=== PATIENT | male | born 1965 | race Caucasian/White ===

== ENCOUNTER 2016-04-27 09:22 | Inpatient (IN) | payer MEDICAID ==
--- NOTE | 2016-04-27 09:59 | CPEKG ---
Heart Rate: 103 RR Interval: 583 P-R Interval: 160 QRSD Interval: 92 QT Interval: 336 QTC Interval: 440 P What Cheer: 45 QRS What Cheer: 104 T Wave What Cheer: 27 EKG Severity - OTHERWISE NORMAL ECG - EKG Impression: SINUS TACHYCARDIA EKG Impression: RIGHT AXIS DEVIATION Electronically Signed By: Esthela Meza 27-Apr-2016 14:39:23
[2016-04-27 10:00] LABS: % IMMATURE GRANULYOCYTES 0.8 % (0.0-1.1); ABSOLUTE IMMATURE GRANULOCYTES 0.08 10^3/uL (0.00-0.10); ADD DIFF? NO; ADD MORPH? NO; ADD SCAN? NO; ATYPICAL LYMPHOCYTE FLAG 0 (0-99); FRAGMENT RBC FLAG 0 (0-99); HEMATOCRIT 39.3 % (40.0-51.0); HEMOGLOBIN 13.4 g/dL (13.7-17.5); LEFT SHIFT FLG 10 (0-99); LIPEMIA HEMOLYSIS FLAG 90 (0-99); MEAN CELL HEMOGLOBIN 30.4 pg (27.9-34.1); MEAN CELL HEMOGLOBIN CONCENTR. 34.1 g/dL (32.4-36.7); MEAN CELL VOLUME 89.1 fL (81.5-99.8); MEAN PLATELET VOLUME 9.1 fL (8.7-11.7); PLATELET CLUMPS FLAG 0 (0-99); PLATELET COUNT 190 10^3/uL (150-400); RED BLOOD CELL COUNT 4.41 10^6/uL (4.40-6.38); RED CELL DISTRIBUTION WIDTH 14.2 % (11.5-15.2)
[2016-04-27] MEDS ORDERED: NS 1,000 ML IV ONE (10:07)
[2016-04-27] MEDS ORDERED: IPRATROPIUM/ALBUTEROL 3 ML DEYVIAL IH ONE (10:17)
[2016-04-27 10:21] LABS: ANION GAP 13 mEq/L (8-16); CALCIUM 8.8 mg/dL (8.5-10.4); CARBON DIOXIDE 20 mEq/l (22-31); CHLORIDE 102 mEq/L (97-110); CREATININE 2.1 mg/dL (0.7-1.3); GLOMERULAR FILTRATION RATE 34; GLUCOSE 134 mg/dL (70-100); POTASSIUM 3.8 mEq/L (3.5-5.2); SODIUM 135 mEq/L (134-144)
--- NOTE | 2016-04-27 10:21 | EDPHY ---
H & P Time Seen by Provider: 04/27/16 09:53 HPI/ROS: CHIEF COMPLAINT: Cough, fever HISTORY OF PRESENT ILLNESS: 50-year-old male presents with a 3 day history of cough and fever. Onset of body aches and a productive cough 3 days ago. Associated with left-sided chest pain, subjective fever and chills. Gradually increasing shortness of breath since then, now short of breath at rest. No vomiting or diarrhea, but has lack of appetite and decreased oral intake. He received a flu vaccination this year. No prior history of pneumonia. REVIEW OF SYSTEMS: Eyes: No visual changes ENT: No sore throat Gastrointestinal: No nausea, no vomiting, no abdominal pain Genitourinary: No hematuria, no dysuria Musculoskeletal: No leg pain or swelling Skin: No rash Neurological: mild headache Psychiatric: No depression Past Medical/Surgical History: Peripheral neuropathy Social History: Homeless PCP: Dr. Murphy Smoking Status: Heavy smoker Physical Exam: General Appearance: Alert, tachypneic, RR 22, nontoxic Eyes: Pupils equal and round, no conjunctival injection ENT, Mouth: Mucous membranes somewhat dry Neck: Normal inspection Respiratory: diffuse inspiratory and expiratory rhonchi Cardiovascular: regular tachycardia Gastrointestinal: Abdomen is soft and nontender Neurological: A&O, nonfocal exam Skin: Warm and dry, no rash Extremities: normal inspection Psychiatric: Mood and affect normal Constitutional: Initial Vital Signs Temperature (C) 37.7 C 04/27/16 09:25 Heart Rate 122 H 04/27/16 09:25 Respiratory Rate 20 04/27/16 09:25 Blood Pressure 87/57 L 04/27/16 09:25 O2 Sat (%) 88 L 04/27/16 09:25 O2 Delivery Mode Nasal Cannula O2 (L/minute) 4 Allergies/Adverse Reactions: coconut Allergy (Severe, Uncoded 12/26/13 09:14) Home Medications: Medication Instructions Recorded Allopurinol 100 MG (RX) 07/11/13 ARIPiprazole [Abilify 5 mg (*)] 5 mg PO DAILY 04/13/16 Gabapentin 04/13/16 Ibuprofen 04/13/16 Lamictal 04/13/16 Prazosin HCl [Minipress 1mg (*)] 3 mg PO HS 04/13/16 buPROPion XL [Wellbutrin Xl] 300 mg PO DAILY 04/13/16 traZODone [traZODone 150MG (*)] 300 mg PO HS 04/13/16 FLUoxetine [Prozac 20 MG (*)] 40 mg PO DAILY 04/27/16 Medical Decision Making - Diagnostics Imaging: X-ray independently reviewed by me reveals a left upper lobe infiltrate. ED Course/Re-evaluation: This patient presents with fever, cough and hypotension. He meets SIRS criteria , with tachycardia and respiratory rate 22. Initial lactate is normal. He meets the severe sepsis protocol with a creatinine of 2.1. Repeat lactate 0.6. IV normal saline 30 mL/kilogram. Blood pressure 100/57 and heart rate 88 after IV fluids and fever reduction. DuoNeb given for diffuse rhonchi. Chest x -ray reveals a left upper lobe pneumonia. Levaquin 750 mg IV given. The hospitalist was consulted for admission. Differential Diagnosis: Differential diagnosis includes pyelonephritis, cholecystitis, influenza, cellulitis, pneumonia, abscess, meningitis. - Data Points Laboratory Results: Laboratory Results 04/27/16 09:45 04/27/16 09:45 04/27/16 04/27/16 04/27/16 10:00 09:45 09:45 WBC RBC Hgb Hct MCV MCH MCHC RDW Plt Count MPV Neut % (Auto) Lymph % (Auto) [place] % (Auto) Eos % (Auto) Baso % (Auto) Nucleat RBC Rel Count Absolute Neuts (auto) Absolute Lymphs (auto) Absolute Monos (auto) Absolute Eos (auto) Absolute Basos (auto) Absolute Nucleated RBC Immature Gran % Immature Gran # PT INR APTT VBG Lactic Acid 1.0 mmol/L mmol/L (0.7-2.1) Sodium 135 mEq/L mEq/L (134-144) Potassium 3.8 mEq/L mEq/L (3.5-5.2) Chloride 102 mEq/L mEq/L (97-110) Carbon Dioxide 20 mEq/l L mEq/l (22-31) Anion Gap 13 mEq/L mEq/L (8-16) BUN 33 mg/dL H mg/dL (7-23) Creatinine 2.1 mg/dL H mg/dL (0.7-1.3) Estimated GFR 34 Glucose 134 mg/dL H mg/dL (70-100) Calcium 8.8 mg/dL mg/dL (8.5-10.4) Total Bilirubin Influenza A & B (PCR) NEGATIVE FOR FLU (NEGATIVE) 04/27/16 04/27/16 04/27/16 09:45 09:25 09:25 WBC 10.29 10^3/uL H 10^3/uL (3.80-9.50) RBC 4.41 10^6/uL 10^6/uL (4.40-6.38) Hgb 13.4 g/dL L g/dL (13.7-17.5) Hct 39.3 % L % (40.0-51.0) MCV 89.1 fL fL (81.5-99.8) MCH 30.4 pg pg (27.9-34.1) MCHC 34.1 g/dL g/dL (32.4-36.7) RDW 14.2 % % (11.5-15.2) Plt Count 190 10^3/uL 10^3/uL (150-400) MPV 9.1 fL fL (8.7-11.7) Neut % (Auto) 82.7 % H % (39.3-74.2) Lymph % (Auto) 5.1 % L % (15.0-45.0) [place] % (Auto) 11.1 % % (4.5-13.0) Eos % (Auto) 0.1 % L % (0.6-7.6) Baso % (Auto) 0.2 % L % (0.3-1.7) Nucleat RBC Rel Count 0.0 % % (0.0-0.2) Absolute Neuts (auto) 8.52 10^3/uL H 10^3/uL (1.70-6.50) Absolute Lymphs (auto) 0.52 10^3/uL L 10^3/uL (1.00-3.00) Absolute Monos (auto) 1.14 10^3/uL H 10^3/uL (0.30-0.80) Absolute Eos (auto) 0.01 10^3/uL L 10^3/uL (0.03-0.40) Absolute Basos (auto) 0.02 10^3/uL 10^3/uL (0.02-0.10) Absolute Nucleated RBC 0.00 10^3/uL 10^3/uL (0-0.01) Immature Gran % 0.8 % % (0.0-1.1) Immature Gran # 0.08 10^3/uL 10^3/uL (0.00-0.10) PT 13.8 SEC SEC (12.0-15.0) INR 1.07 (0.83-1.16) APTT 32.9 SEC SEC (23.0-38.0) VBG Lactic Acid Sodium Potassium Chloride Carbon Dioxide Anion Gap BUN Creatinine Estimated GFR Glucose Calcium Total Bilirubin 0.7 mg/dL mg/dL (0.1-1.4) Influenza A & B (PCR) Medications Given: Discontinued Medications Acetaminophen (Tylenol) 650 mg PO EDNOW ONE Stop: 04/27/16 10:23 Last Admin: 04/27/16 10:45 Dose: 650 mg Albuterol/Ipratropium (Duoneb) 3 ml IH EDNOW ONE Stop: 04/27/16 10:18 Last Admin: 04/27/16 10:36 Dose: 3 ml Sodium Chloride (Ns) 1,000 mls @ 0 mls/hr IV ONCE ONE PRN Reason: Wide Open Stop: 04/27/16 10:08 Last Admin: 04/27/16 10:08 Dose: 1,000 mls Levofloxacin/Dextrose (Levaquin 750 Mg (Premix)) 150 mls @ 100 mls/hr IV EDNOW ONE PRN Reason: Protocol Stop: 04/27/16 12:05 Last Admin: 04/27/16 11:15 Dose: 150 mls Sodium Chloride (Ns *For Sepsis Order Set Only*) 3,266 ml 30 ml/kg (3266 ml) IV EDNOW ONE Stop: 04/27/16 10:37 Last Admin: 04/27/16 11:16 Dose: 3,266 ml Departure - Departure Disposition: [facility] Inpatient Acute Clinical Impression: Severe sepsis Pneumonia Qualifiers: Pneumonia type: due to unspecified organism Laterality: left Lung location: upper lobe of lung Qualified Code(s): J18.1 - Lobar pneumonia, unspecified organism Acute renal failure Qualifiers: Acute renal failure type: unspecified Qualified Code(s): N17.9 - Acute kidney failure, unspecified Condition: Serious
[2016-04-27] MEDS ORDERED: ACETAMINOPHEN 325 MG TAB PO ONE (10:22)
[2016-04-27] MEDS ORDERED: NS 1,000 ML BAG *FOR SEPSIS ORDER SET ONLY IV ONE (10:36)
[2016-04-27 10:49] LABS: INR 1.07 (0.83-1.16); PROTIME(PATIENT) 13.8 SEC (12.0-15.0)
[2016-04-27 10:53] LABS: BILIRUBIN,TOTAL 0.7 mg/dL (0.1-1.4)
[2016-04-27 10:54] LABS: APTT 32.9 SEC (23.0-38.0)
[2016-04-27] MEDS ORDERED: ONDANSETRON 4 MG/2 ML VIAL IVP PRN (13:18)
[2016-04-27] MEDS ORDERED: ALBUTEROL 60 PUFFS/8 GM MDI IH PRN (13:18)
[2016-04-27] MEDS: NS 1,000 ML IV SCH (13:56)
[2016-04-27] MEDS: IPRATROPIUM/ALBUTEROL 3 ML DEYVIAL IH SCH ×2 (15:32→21:18)
[2016-04-27] MEDS: ACETAMINOPHEN 325 MG TAB PO PRN ×2 (15:48→22:16)
--- NOTE | 2016-04-27 16:13 | PDGENHP ---
History and Physical History and Physical: HISTORY AND PHYSICAL CC: Cough and shortness of breath HISTORY: This patient who has long smoking history and COPD comes in with 1 week of worsening respiratory symptoms which started with cough and progressed to worsening cough worsening shortness of breath and fever symptoms. He has had decrease in appetite and not been eating or drinking well. He has not had any chest pain per se. There have been some chills and sweats. He has no pleuritic pain and no leg pain or swelling. He did not have a flu shot this year. He does not have myalgias or arthralgias or headache. He has been working on quitting smoking has cut back to around a pack a day but had previously been 2 packs a day until just recently ROS: A comprehensive 10 system review revealed no other significant findings PAST MEDICAL HISTORY: COPD Ongoing tobacco abuse 1 episode of pneumonia Seizure disorder with due to alcohol with subarachnoid hemorrhage in mandibular fracture due to seizures Past alcohol abuse Peripheral neuropathy thought due to alcoholism Anemia of chronic disease Hyperlipidemia Depression Gout Right ankle fracture Appendectomy FAMILY MEDICAL HISTORY: Heart disease and COPD SOCIAL HISTORY: Homeless Continues to smoke cigarettes heavily No street drugs or alcohol at this time MEDICATIONS: The patients list has been reconciled by our clinical pharmacist in the EMR. I have reviewed the list and ordered appropriate medicines. PHYSICAL EXAMINATION: Vital Signs: Initial blood pressure and pulse in the ER 87/57 and 122 with some hypoxemia andtemperature 37.7degrees Dope Mixer: Sinus rhythm on my review in the ER Examination: General: alert, oriented, good mentation Skin: warm, dry, good color, no rash HEENT: normal Neck: no mass or jvd Resps: Labored Lungs: Severely diminished with prolonged expiration and some wheeze Heart: regular, no murmur Abdomen: soft, nondistended, nontender, +BS, no mass Upper Extremities: normal Lower Extremities: no edema, warm No Bleeding or bruising Neurologic: normal speech/language, normal cloth shrinker, no focal weakness IV site: looks normal LABORATORY DATA: Creatinine elevated at 2.1 with an increase in BUN White blood cell count elevated with predominance of neutrophils RADIOLOGY STUDIES: Chest x-ray in the ER, my personal interpretation of the images: There is a dense infiltrate in the left upper lobe that has a somewhat rounded and smooth edged appearance. This is most still likely an infectious infiltrate and in fact does have some air bronchograms in, but hard to rule out mass. There is also elevation of the left hemidiaphragm and the level of the diaphragm is somewhat obscured by atelectasis and possibly infiltrate. ASSESSMENT: -ACUTE RESPIRATORY FAILURE, HYPOXEMIC -ACUTE SEVERE SEPSIS WITH RESULTANT RENAL FAILURE, BUT WITHOUT METABOLIC ACIDOSIS -LEFT LUNG PNEUMONIA IS SUSPECTED, COMMUNITY-ACQUIRED -COPD EXACERBATION -QUESTION OF POSSIBLE LUNG MASS VERSUS INFILTRATE IN THE LEFT LUNG WITH ELEVATION OF THE LEFT HEMIDIAPHRAGM -ONGOING TOBACCO ABUSE -HOMELESSNESS -RISK OF DVT IS AT LEAST MODERATE The patient did have initial resuscitation for sepsis in the ER with good resolution of hypotension and tachycardia. Need to follow closely to make sure that is remains resolved and follow his renal function and respiratory failure closely. PLANS: -admission to hospital inpatient as he will clearly require more than 2 days to get over his respiratory failure -bronchodilators, steroids, antibiotics have all been started in the ER will be continued -blood cultures done in the ER and are pending -follow-up to be sure that his sepsis does not recur her after initial resuscitation -repeat chest x-ray tomorrow and he will certainly need more imaging. He should probably have a CT scan before leaving the hospital -DVT prophylaxis I have reviewed the patient's case in detail with . I have reviewed the patient's past medical records as part of this assessment, including
[2016-04-27] MEDS: NICOTINE 21 MG/24 HR PATCH TD SCH (17:39)
[2016-04-27 23:38] LABS: ANION GAP 11 mEq/L (8-16); CALCIUM 8.1 mg/dL (8.5-10.4); CARBON DIOXIDE 19 mEq/l (22-31); CHLORIDE 103 mEq/L (97-110); CREATININE 1.3 mg/dL (0.7-1.3); GLOMERULAR FILTRATION RATE 58; GLUCOSE 124 mg/dL (70-100); POTASSIUM 4.2 mEq/L (3.5-5.2); SODIUM 133 mEq/L (134-144)
[2016-04-27] MEDS: PRAZOSIN HCL 1 MG CAP PO SCH (23:45)
[2016-04-27] MEDS: ZOLPIDEM TARTRATE 5 MG TAB PO PRN (23:46)
[2016-04-28] MEDS: NS 1,000 ML IV SCH ×2 (04:01→19:55)
[2016-04-28] MEDS: IPRATROPIUM/ALBUTEROL 3 ML DEYVIAL IH SCH ×4 (05:20→20:55)
[2016-04-28] MEDS: ACETAMINOPHEN 325 MG TAB PO PRN ×2 (05:45→19:52)
[2016-04-28 06:03] LABS: % IMMATURE GRANULYOCYTES 0.8 % (0.0-1.1); ABSOLUTE IMMATURE GRANULOCYTES 0.06 10^3/uL (0.00-0.10); ADD DIFF? NO; ADD MORPH? NO; ADD SCAN? NO; ATYPICAL LYMPHOCYTE FLAG 0 (0-99); FRAGMENT RBC FLAG 0 (0-99); HEMATOCRIT 34.6 % (40.0-51.0); HEMOGLOBIN 11.6 g/dL (13.7-17.5); LEFT SHIFT FLG 20 (0-99); LIPEMIA HEMOLYSIS FLAG 80 (0-99); MEAN CELL HEMOGLOBIN 30.3 pg (27.9-34.1); MEAN CELL HEMOGLOBIN CONCENTR. 33.5 g/dL (32.4-36.7); MEAN CELL VOLUME 90.3 fL (81.5-99.8); MEAN PLATELET VOLUME 9.4 fL (8.7-11.7); PLATELET CLUMPS FLAG 0 (0-99); PLATELET COUNT 192 10^3/uL (150-400); RED BLOOD CELL COUNT 3.83 10^6/uL (4.40-6.38); RED CELL DISTRIBUTION WIDTH 14.6 % (11.5-15.2)
[2016-04-28 06:20] LABS: ANION GAP 10 mEq/L (8-16); CALCIUM 8.2 mg/dL (8.5-10.4); CARBON DIOXIDE 21 mEq/l (22-31); CHLORIDE 105 mEq/L (97-110); CREATININE 1.2 mg/dL (0.7-1.3); GLOMERULAR FILTRATION RATE > 60; GLUCOSE 102 mg/dL (70-100); POTASSIUM 4.2 mEq/L (3.5-5.2); SODIUM 136 mEq/L (134-144)
--- NOTE | 2016-04-28 07:16 | HOSPPROG ---
Hospitalist Progress Note Assessment/Plan: Called bedside for acutely worsening oxygen saturations at 10pm patient admitted with suspected CAP and 3L O2 requirement by 10pm pt had developed tachypnea (> 30), tachycardia (HR 110-120's) and worsening O2 requirement of 3-> 10L 90% # Acute hypoxic Respiratory failure - reported sx were slightly improved from initial admission - pt denied pleuritic or any CP CXR -(personally reviewed and interpreted) clear ERIN infiltrate - sending STAT dimer and BMP - clinical suspicion for PE low - but being considered - continue aggressive pulmonary toilet and empiric Abx - no indication for BIPAP at this time - cont inhaled meds # Sepsis - presumed 2/2 to CAP - cx collected and NGTD - continue aggressive fluid resuscitation - cont empiric Abx # JOLLY - recheck BMP - if clinical course deteriorates- then may need to more seriously entertain PE - check renal status prior to any CTPE imaging - if remains high could empirically treat with lovenox I spent > 30 minutes providing critical care time with patient overnight - care plan reviewed with RN Subjective: SOB and fever feels terrible Objective: Vital Signs Temp Pulse Resp BP Pulse Ox 38.8 C H 103 H 28 H 117/66 91 L 04/28/16 06:49 04/28/16 05:30 04/28/16 05:30 04/28/16 05:30 04/28/16 05:30 Microbiology 04/27/16 12:10 - Final Sputum, Expectorated Laboratory Results 04/28/16 04:48 04/28/16 04:48 04/27/16 04/28/16 04/29/16 05:59 05:59 05:59 Intake Total 2050 858 Output Total 900 Balance 1150 858 PT 13.8 SEC (12.0-15.0) 04/27/16 09:25 INR 1.07 (0.83-1.16) 04/27/16 09:25 - Physical Exam Constitutional: obese Eyes: anicteric sclera Ears, Nose, Mouth, Throat: dry mucous membranes Cardiovascular: tachycardia Respiratory: expiratory wheeze, respiratory distress, rhonchi Gastrointestinal: normoactive bowel sounds Genitourinary: no bladder fullness Skin: warm, normal color Musculoskeletal: No asymmetric calves Neurologic: AAOx3 Psychiatric: interacting appropriately, not anxious Lymph, Heme, Immunologic: no cervical LAD ICD10 Worksheet Patient Problems: Problems Problem Status Onset Acute renal failure Acute Pneumonia Acute Severe sepsis Acute Subarachnoid hemorrhage Acute
[2016-04-28] MEDS: buPROPion XL 150 MG TAB PO SCH (09:00)
[2016-04-28] MEDS: levOFLOXACIN 500 MG/DEXTROSE 100 ML IV SCH (09:00)
[2016-04-28] MEDS: ENOXAPARIN 40 MG/0.4 ML SYR SC SCH (09:00)
[2016-04-28] MEDS: ARIPiprazole 5 MG TAB PO SCH (09:00)
[2016-04-28] MEDS: FLUoxetine 20 MG CAP PO SCH (09:00)
[2016-04-28] MEDS: NICOTINE 21 MG/24 HR PATCH TD SCH (09:07)
--- NOTE | 2016-04-28 10:37 | HOSPPROG ---
Hospitalist Progress Note Assessment/Plan: DIAGNOSES: -ACUTE RESPIRATORY FAILURE, HYPOXEMIC -ACUTE SEVERE SEPSIS WITH RESULTANT RENAL FAILURE, BUT WITHOUT METABOLIC ACIDOSIS -LEFT LUNG PNEUMONIA IS SUSPECTED, COMMUNITY-ACQUIRED -COPD EXACERBATION -QUESTION OF POSSIBLE LUNG MASS VERSUS INFILTRATE IN THE LEFT LUNG ALSO WITH ELEVATION OF THE LEFT HEMIDIAPHRAGM -ONGOING TOBACCO ABUSE -HOMELESSNESS -RISK OF DVT IS AT LEAST MODERATE Overall there is slight improvement symptomatic Rodriguez in breathing but he still quite short of breath at rest in bed on oxygen. He is still showing some signs of sepsis with high fevers tachycardia tachypnea and mild metabolic acidosis. However organ failure with renal function is improved so at least that part is stable. There is still question as to the significance some the findings on his chest x-ray as I interpret with possible mass. PLANS: -await repeat chest x-ray pending today -follow cultures closely - continue current antibiotics, bronchodilators, steroid -will review today's chest x-ray when it is done. At sometime he will need a CT of the chest did but given the recent renal failure yesterday will look at today's chest x-ray decide on timing, probably look at CT in the next 1-2 days Greater than 40 minutes bedside time spent with patient and to visit today. SUBJECTIVE: Had chills all through the night and then this morning had high fever, slept poorly A little bit less short of breath than yesterday but still very significantly dyspneic at rest OBJECTIVE Vitals reviewed: Temperature 39.4degrees last night and was pretty much febrile through the night including 38.8 this morning. Still tachycardic and tachypneic though blood pressure stable Exam: alert oriented looks quite fatigued and somewhat weak skin warm dry color ok resps still labored lungs diffuse wheeze, exam is shortly after bronchodilator nebulizer heart regular abd soft nondistended nontender, bowel sounds present limbs warm, no edema iv site ok Laboratory data: Creatinine better at 1.2, but still has some metabolic acidosis. White blood cell count notably better Repeat chest x-ray pending will need to review later today Objective: Vital Signs Temp Pulse Resp BP Pulse Ox 37.2 C 95 16 117/66 92 04/28/16 08:00 04/28/16 08:00 04/28/16 08:00 04/28/16 08:00 04/28/16 08:00 Microbiology 04/27/16 12:10 - Final Sputum, Expectorated Laboratory Results 04/28/16 04:48 04/28/16 04:48 04/27/16 04/28/16 04/29/16 06:59 06:59 06:59 Intake Total 2908 Output Total 900 Balance 2007 PT 13.8 SEC (12.0-15.0) 04/27/16 09:25 INR 1.07 (0.83-1.16) 04/27/16 09:25 ICD10 Worksheet Patient Problems: Problems Problem Status Onset Acute renal failure Acute Pneumonia Acute Severe sepsis Acute Subarachnoid hemorrhage Acute
[2016-04-28] MEDS ORDERED: oxyCODONE IR 5 MG TAB PO PRN (19:43)
[2016-04-28] MEDS: PRAZOSIN HCL 1 MG CAP PO SCH (19:52)
[2016-04-28] MEDS ORDERED: ACETAMINOPHEN 500 MG TAB PO ONE (21:00)
[2016-04-28] MEDS ORDERED: FUROSEMIDE 20 MG/2 ML VIAL IVP ONE (21:46)
--- NOTE | 2016-04-28 21:53 | HOSPPROG ---
Hospitalist Progress Note Assessment/Plan: 50 yo M w sepsis, pneumonia cxr (interp by me)_ w b/l airspace disease, prgressive from admit 1. transfer to stepdown 2. lasix 20 mg X 1 as he is 5 L + 3. close follow up 4. 35 min crit care Subjective: called that patient w high 02 requirement and triggered sepsis protocol Objective: Vital Signs Temp Pulse Resp BP Pulse Ox 38.6 C H 130 H 17 154/97 H 94 04/28/16 20:24 04/28/16 20:55 04/28/16 20:55 04/28/16 20:24 04/28/16 20:55 Microbiology 04/27/16 12:10 - Final Sputum, Expectorated Laboratory Results 04/28/16 04:48 04/28/16 04:48 04/27/16 04/28/16 04/29/16 05:59 05:59 05:59 Intake Total 2050 858 Output Total 900 900 Balance 1150 -42 PT 13.8 SEC (12.0-15.0) 04/27/16 09:25 INR 1.07 (0.83-1.16) 04/27/16 09:25 - Physical Exam Constitutional: other (diaphoretic) Eyes: PERRL Ears, Nose, Mouth, Throat: moist mucous membranes Cardiovascular: regular rate and rhythym, tachycardia Respiratory: other (b/l crackles) Gastrointestinal: normoactive bowel sounds, soft, non-tender abdomen Genitourinary: No sorto in urethra Skin: warm Musculoskeletal: full muscle strength ICD10 Worksheet Patient Problems: Problems Problem Status Onset Acute renal failure Acute Pneumonia Acute Severe sepsis Acute Subarachnoid hemorrhage Acute
[2016-04-28] MEDS: ZOLPIDEM TARTRATE 5 MG TAB PO PRN (23:45)
--- NOTE | 2016-04-29 00:33 | CPEKG ---
Heart Rate: 108 RR Interval: 556 P-R Interval: 168 QRSD Interval: 90 QT Interval: 332 QTC Interval: 445 P Moffat: 54 QRS Moffat: 89 T Wave Moffat: 29 EKG Severity - BORDERLINE ECG - EKG Impression: SINUS TACHYCARDIA EKG Impression: PROBABLE LEFT ATRIAL ABNORMALITY Electronically Signed By: Blanka Harvey 29-Apr-2016 15:25:16
[2016-04-29] MEDS ORDERED: CEFEPIME HCL 2 GM in D5W 100 ML IV ONE (01:18)
[2016-04-29 01:41] LABS: BASE EXCESS -2.6 mEq/L (-2.5-2.5); BICARBONATE 22 mEq/L (22-26); MEASURED OXYGEN SATURATION 93 % (92-95); PCO2 38 mmHg (34-38); PO2 69 mmHg (65-75); TCO2 23 mEq/L (23-27)
[2016-04-29 01:44] LABS: O2 CONCENTRATIION 100 % (0-100); P/F RATIO 69 RATIO
[2016-04-29] MEDS ORDERED: FUROSEMIDE 20 MG/2 ML VIAL IVP ONE (02:37)
[2016-04-29] MEDS ORDERED: ALBUTEROL 3 ML DEYVIAL IH PRN (02:37)
[2016-04-29] MEDS ORDERED: methylPREDNISolone SOD SUCC 125 MG/2 ML VIAL IVP ONE (02:39)
[2016-04-29] MEDS: LORazepam 2 MG/ML INJ IVP PRN (02:46)
[2016-04-29] MEDS ORDERED: DEXMEDETOMIDINE HCL 400 MCG in NS 100 ML IV SCH (03:00)
[2016-04-29] MEDS ORDERED: PROPOFOL/EMULSION 1,000 MG/100 ML BOTTLE IV ONE ×2 (04:03→04:09)
[2016-04-29] MEDS: PROPOFOL/EMULSION 100 ML IV SCH ×4 (04:10→21:34)
[2016-04-29 04:50] LABS: % IMMATURE GRANULYOCYTES 0.7 % (0.0-1.1); ABSOLUTE IMMATURE GRANULOCYTES 0.07 10^3/uL (0.00-0.10); ADD DIFF? NO; ADD MORPH? NO; ADD SCAN? NO; ATYPICAL LYMPHOCYTE FLAG 0 (0-99); FRAGMENT RBC FLAG 0 (0-99); HEMATOCRIT 37.7 % (40.0-51.0); HEMOGLOBIN 12.7 g/dL (13.7-17.5); LEFT SHIFT FLG 20 (0-99); LIPEMIA HEMOLYSIS FLAG 80 (0-99); MEAN CELL HEMOGLOBIN CONCENTR. 33.7 g/dL (32.4-36.7); MEAN CELL VOLUME 89.1 fL (81.5-99.8); MEAN PLATELET VOLUME 8.8 fL (8.7-11.7); PLATELET CLUMPS FLAG 0 (0-99); PLATELET COUNT 188 10^3/uL (150-400); RED BLOOD CELL COUNT 4.23 10^6/uL (4.40-6.38); RED CELL DISTRIBUTION WIDTH 14.4 % (11.5-15.2)
[2016-04-29] MEDS: IPRATROPIUM/ALBUTEROL 3 ML DEYVIAL IH SCH ×4 (04:59→20:26)
[2016-04-29] MEDS: ACETYLCYSTEINE 10% 30 ML VIAL IH SCH ×4 (04:59→20:26)
[2016-04-29 05:00] LABS: ALANINE AMINOTRANSFERASE 26 IU/L (21-72); ALBUMIN 3.5 g/dL (3.5-5.0); ALKALINE PHOSPHATASE 108 IU/L (38-126); ANION GAP 14 mEq/L (8-16); ASPARTATE AMINOTRANSFERASE 37 IU/L (17-59); CALCIUM 8.5 mg/dL (8.5-10.4); CARBON DIOXIDE 23 mEq/l (22-31); CHLORIDE 102 mEq/L (97-110); CREATININE 0.9 mg/dL (0.7-1.3); GLOMERULAR FILTRATION RATE > 60; GLUCOSE 172 mg/dL (70-100); POTASSIUM 4.5 mEq/L (3.5-5.2); SODIUM 139 mEq/L (134-144); TOTAL PROTEIN 7.2 g/dL (6.3-8.2)
[2016-04-29] MEDS ORDERED: SUCCINYLCHOLINE CHLORIDE*ANESTHESIA ONLY*200 MG/10 ML SYR IVP ONE (05:00)
[2016-04-29] MEDS ORDERED: ETOMIDATE 40 MG/20 ML INJ IV ONE (05:00)
[2016-04-29] MEDS ORDERED: ACETAMINOPHEN 650 MG SUPP PR PRN (05:30)
[2016-04-29] MEDS ORDERED: ACETAMINOPHEN 325 MG SUPP PR PRN (05:30)
[2016-04-29] MEDS: VECURONIUM BROMIDE 50 MG in D5W 50 ML IV SCH ×2 (06:08→08:49)
--- NOTE | 2016-04-29 06:26 | EDPHY ---
Inpatient Procedure Narrative: Respiratory failure Was called by the hospitalist service to come and see and evaluate this patient as patient is declining in the ICU on full face BiPAP and having worsening altered mental status and low oxygen saturation on full face BiPAP. The hospitalist service specifically Dr. Martino asked me to please come and evaluate the patient for possible intubation. Upon my arrival to the patient's ICU room the patient was found to be confused and pulling at medical quick meant, appear to be in respiratory distress with a respiratory rate in the 40s and O2 sats in the low 80s. The patient was on BiPAP and not tolerating it very well. Heart rate is noted to be tachycardic. The patient appears to be in respiratory distress and impending respiratory failure. Dr. Martino explain to me this patient had significant amount of pneumonia in both lungs and has been progressively getting worse all night. Reason for intubation: Respiratory distress and impending respiratory failure. Critical Care: Total Critical Care Time Spent Managing this Patient: 35 Minutes. This time was spent Exclusively with this patient. This Care was exclusive of procedures. The Organ System/life at risk was cardiopulmonary This Patient was in Critical Condition because impending respiratory failure, hypoxia, respiratory distress Procedure Intubation: This patient was intubated with RSI medications 20 mg IV etomidate was used for sedation and 120 mg of succinylcholine IV push was used for paralytic. Under direct visualization with a MAC 4 blade the patient had a 7.5 endotracheal tube passed through the cords with direct visualization. The endotracheal was confirmed with chest x-ray, end-tidal capnography color change, humidified air and bilateral breath sounds. The hospitalist service was updated after intubation. ED x-ray chest one view: Endotracheal tube in good position, lung curry show dense opacification is concerning for significant widespread pneumonia Final diagnosis respiratory failure, hypoxia, bilateral worsening pneumonia
[2016-04-29] MEDS: methylPREDNISolone SOD SUCC 125 MG/2 ML VIAL IVP SCH ×3 (06:31→17:48)
--- NOTE | 2016-04-29 07:00 | HOSPPROG ---
Hospitalist Progress Note Assessment/Plan: Cross cover/critical care note: Called to patients bedside near 12am on 04/29 for worsening respiratory distress. ABG obtained and reviewed, gas looked relatively ok. Patient on 15L NRB, transitioned to bipap. ABx broadened to cefepime, added methylprednisolone, nebs, mucomyst. Shortly after that patient increasingly agitated, no improvement with ativan. Patient re-evaluated at bedside near 3am, agitated, trying to get out of bed, trying to remove bipap, pulled IV out, desaturating to 60s with bipap off. Started on precedex gtt again with little improvement. Given ongoing significant agitation, desaturations and risk of harming himself, discussed with ER doctor intubation and patient urgently intubated at bedside. Sedation increased though patient still agitated. Fighting the ventilator. Reviewed care plan with ER doc and RT and started on vecuronium gtt given patients continued fighting of ventilator and continued desats. Reviewed CXR and notable for severe bilateral infiltrates c/w ARDS. > 90 minutes of face to face critical care time spent with this patient over multiple visits interpreting labs, reviewing serial cxrs, reviewing care plan with ER. Objective: Vital Signs Temp Pulse Resp BP Pulse Ox 38.4 C H 91 24 H 98/61 L 90 L 04/29/16 05:48 04/29/16 05:48 04/29/16 05:48 04/29/16 05:48 04/29/16 05:48 Microbiology 04/27/16 12:10 - Final Sputum, Expectorated Laboratory Results 04/29/16 04:30 04/29/16 04:30 04/28/16 04/29/16 04/30/16 05:59 05:59 05:59 Intake Total 2050 858 Output Total 900 1050 Balance 1150 -192 PT 13.8 SEC (12.0-15.0) 04/27/16 09:25 INR 1.07 (0.83-1.16) 04/27/16 09:25 ICD10 Worksheet Patient Problems: Problems Problem Status Onset Subarachnoid hemorrhage Acute Pneumonia Acute Severe sepsis Acute Acute renal failure Acute
[2016-04-29 07:04] LABS: BASE EXCESS -4.4 mEq/L (-2.5-2.5); BICARBONATE 21 mEq/L (22-26); MEASURED OXYGEN SATURATION 96 % (92-95); PCO2 43 mmHg (34-38); PO2 90 mmHg (65-75); TCO2 22 mEq/L (23-27)
[2016-04-29 07:05] LABS: ASSIST CONTROL YES
[2016-04-29 07:06] LABS: END TIDAL CO2 40; O2 CONCENTRATIION 100 % (0-100); P/F RATIO 90 RATIO; TOTAL RATE 22
[2016-04-29] MEDS: NICOTINE 21 MG/24 HR PATCH TD SCH (08:04)
[2016-04-29] MEDS: ENOXAPARIN 40 MG/0.4 ML SYR SC SCH (08:04)
[2016-04-29] MEDS: levOFLOXACIN 500 MG/DEXTROSE 100 ML IV SCH (08:48)
[2016-04-29] MEDS ORDERED: CEFEPIME HCL 2 GM in D5W 100 ML IV SCH (09:00)
[2016-04-29] MEDS: FLUoxetine 20 MG CAP PO SCH (09:08)
[2016-04-29] MEDS: ARIPiprazole 5 MG TAB PO SCH (09:08)
[2016-04-29] MEDS: VANCOMYCIN 1.5 GM in D5W 250 ML IV SCH ×2 (09:11→21:34)
[2016-04-29] MEDS: buPROPion XL 150 MG TAB PO SCH (09:11)
[2016-04-29] MEDS ORDERED: ALTEPLASE 2 MG VIAL IVP PRN (09:44)
[2016-04-29] MEDS: FAMOTIDINE 20 MG/NACL 50 ML IV SCH ×2 (10:48→21:11)
[2016-04-29] MEDS ORDERED: oxyCODONE IR 5 MG TAB TUBE PRN (11:35)
[2016-04-29] MEDS: buPROPion 100 MG TAB TUBE SCH ×3 (12:13→21:12)
--- NOTE | 2016-04-29 14:00 | GCON ---
[f rep st] CONSULTATION PULMONARY CRITICAL CARE CONSULTATION. REASON FOR CONSULTATION: Acute respiratory failure, progressive pneumonia. HISTORY: The patient is a 50-year-old, who was admitted on 04/27/2016 with left -sided pneumonia associated with sepsis and renal insufficiency. He has a history of underlying COPD and ongoing tobacco abuse. He had 1 week of increasing shortness of breath with cough, fevers, and mucus. Following admission he was started on antibiotics for community-acquired pneumonia, and given bronchodilators and steroids for an exacerbation of his underlying COPD. Blood cultures were obtained and remained negative. A white blood cell count initially was 10,200, PCR for influenza A/B was negative. Sputum culture was obtained, was likely mostly saliva. The patient became increasingly agitated, tachypneic, and hypoxemic last night. He was placed on BiPAP and antibiotics were broadened, steroids given, etceteras. Ativan was used for agitation. Without BiPAP he desaturated into the 60s. He was transferred to the intensive care unit and intubated urgently by the emergency room physician. Despite sedation he remained agitated and needed vecuronium to control his finding of the ventilator and ongoing desaturations. Since being on vecuronium, along with propofol and fentanyl, he has been calm, riding the ventilator. He remains on high-flow oxygen at 80% FiO2. Saturations are in the mid 90s. A chest x-ray showed significant progression of his initially left-sided pneumonia, now with a near whiteout on the right side. It is unclear whether this represents possible aspiration during the hospitalization, progression of his pneumonia, or ARDS. He is not producing significant sputum. PAST MEDICAL HISTORY: Remarkable for a history of significant alcohol abuse in the past. Apparently he has not recently been drinking. He has a history of subarachnoid hemorrhage, and a seizure disorder. He has COPD with ongoing tobacco abuse, anemia of chronic disease, depression, hyperlipidemia, and gout. PAST SURGICAL HISTORY: Includes an appendectomy, and right ankle fracture. SOCIAL HISTORY: The patient was previously homeless. He now has a relative permanent place at the retirement on [facility]. Current alcohol use and drug use is apparently negative. He was smoking up to the time that he came in. FAMILY HISTORY: Not obtainable. REVIEW OF SYSTEMS: Not obtainable. PHYSICAL EXAMINATION: GENERAL: Reveals a relatively well-kept man who is sedated/paralyzed on the ventilator. VITAL SIGNS: Blood pressure is 90/60, heart rate 65 with sinus rhythm on the monitor. Respiratory rate is set at 26, on 80% FiO2 saturations are 95%. HEENT: Reveals anisocoria. This was well- documented in the past at the time of his subarachnoid hemorrhage, and is not new. Endotracheal tube and NG tube is in place. NECK: There is no lymphadenopathy or thyromegaly. There is no obvious jugular venous distention. Mucous membranes are somewhat dry but otherwise intact. CHEST: Reveals coarse breath sounds bilaterally with consolidative changes on the right. Bilateral rales are present at the lateral posterior lung zones. There are no rhonchi. There are no wheezes. HEART: Regular in rate and rhythm. There is a soft systolic murmur, no gallop. P2 appears to be mildly increased. ABDOMEN : Soft. Tenderness cannot be assessed. Bowel sounds are diminished but present. Allred catheter is in place. Urine output is present but somewhat sluggish. EXTREMITIES: Unremarkable for edema. There are no cords. NEUROLOGIC: Examination could not be assessed currently. IMAGING: Chest x-ray is as described above with dense right-sided new infiltrates. Left-sided infiltrates persist, slightly better. LABORATORY DATA: Arterial blood gas on the ventilator early this morning shows a pH of 7.31, pCO2 of 43, and pO2 of 90. Respiratory rate was increased after this. Followup blood gas is pending. White blood cell count is 10,300, hematocrit 37, platelets 188,000. PT and PTT were normal on admission. Basic metabolic panel is within normal limits, with the exception of a low bicarbonate at 21. BUN and creatinine are normal, glucose is 172. Liver function studies are normal. Influenza A/B by PCR was negative on admission. ASSESSMENT: 1. Acute respiratory failure. This is associated with progressive right-sided pulmonary infiltrates that may represent an aspiration event while here ?. Other possibilities include progressive pneumonia, or the development of ARDS. 2. Community-acquired pneumonia. The patient came in with a left-sided pneumonia, was treated appropriately. Antibiotics have currently been broadened , and he is on vancomycin and Levaquin, as well as cefepime. 3. Chronic obstructive pulmonary disease, secondary to longstanding tobacco abuse. He apparently did have evidence of an exacerbation. He is on steroids and bronchodilators. 4. History of depression, on Wellbutrin, Prozac, trazodone, and Abilify. 5. History of hypertension, on prazosin. 6. History of subarachnoid hemorrhage and seizures in the past. 7. Deep venous thrombosis prophylaxis, on enoxaparin. 8. Gastrointestinal prophylaxis, on Pepcid. 9. Agitation, combativeness. Requiring paralytics. PLAN AND RECOMMENDATIONS: The patient will be supported appropriately on the ventilator. Arterial blood gas and chest x-ray will be followed along with laboratory. Bronchodilator therapies, steroids and antibiotics will all be continued. A sputum culture will be requested. I will try to wean vecuronium and go with fentanyl and propofol. Aggressive supportive care will be maintained. Further plans and recommendations will be made based on progress over the next 12 to 24 hours. 1 hour of critical care time was spent directly with the patient. Multiple visits today. Studies reviewed. /[id number]/MODL MTDD
[2016-04-29] MEDS: CEFEPIME HCL 2 GM in D5W 100 ML IV SCH (15:43)
[2016-04-29] MEDS ORDERED: ACETAMINOPHEN 325 MG TAB TUBE PRN (16:03)
--- NOTE | 2016-04-29 19:03 | HOSPPROG ---
Hospitalist Progress Note Assessment/Plan: Additional 50 minutes critical care time spent with patient, at bedside, face-to -face with patient and Dr. Crowell, addressing the issues below: -patient meets the definition of severe sepsis based on sepsis-2 and sepsis-3 criteria including fever with maximum temperature of 39.4degrees, tachypnea with respirations of 28, tachycardia with heart rate of 122, hypotension with mean arterial pressure of 65, resulting in autonomic dysregulation in the setting of community-acquired pneumonia and resultant end-organ failure notably respiratory failure, encephalopathy, acute kidney injury -patient meets the definition of acute hypoxic respiratory failure with an SpO2 of 87%, visible shortness of breath, objective tachypnea and respiratory rate of 28, requiring intubation an FiO2 of 80%, secondary to a combination of community-acquired pneumonia and most likely development of ARDS -antibiotics include cefepime and levofloxacin, vancomycin added given that his sputum is growing 2+ Gram-positive cocci in clusters and we should cover for MR assay given that he has been hospitalized for greater than 72 hours and he is at risk for healthcare associated organisms -PICC line placed for access -holding on further IV fluids and considering Lasix -ventilator management per Dr. Crowell commdioni chest x-ray continues to demonstrate nearly complete whiteout of the right lung Objective: Vital Signs Temp Pulse Resp BP Pulse Ox 36.3 C 55 L 26 H 85/60 L 94 04/29/16 12:00 04/29/16 18:00 04/29/16 18:00 04/29/16 18:00 04/29/16 18:00 Microbiology 04/29/16 Unknown - Final Sputum, Induced/Suctioned 04/27/16 12:10 - Final Sputum, Expectorated Sputum Culture - Final Laboratory Results 04/29/16 04:30 04/29/16 04:30 04/28/16 04/29/16 04/30/16 05:59 05:59 05:59 Intake Total 2050 858 2100 Output Total 900 1050 490 Balance 1150 -192 1610 PT 13.8 SEC (12.0-15.0) 04/27/16 09:25 INR 1.07 (0.83-1.16) 04/27/16 09:25 - Physical Exam Cardiovascular: tachycardia, No irregularly irregular Respiratory: reduced air movement (Right lung), rhonchi (Bilaterally), No expiratory wheeze, No bronchial breath sounds Neurologic: other (Intubated and sedated, not following commands) Psychiatric: encephalopathic ICD10 Worksheet Patient Problems: Problems Problem Status Onset Subarachnoid hemorrhage Acute Pneumonia Acute Severe sepsis Acute Acute renal failure Acute
[2016-04-30] MEDS: CEFEPIME HCL 2 GM in D5W 100 ML IV SCH ×3 (00:10→15:09)
[2016-04-30] MEDS: methylPREDNISolone SOD SUCC 125 MG/2 ML VIAL IVP SCH ×4 (00:11→17:07)
[2016-04-30] MEDS: PROPOFOL/EMULSION 100 ML IV SCH ×5 (04:11→21:03)
[2016-04-30 04:25] LABS: % IMMATURE GRANULYOCYTES 0.8 % (0.0-1.1); ABSOLUTE IMMATURE GRANULOCYTES 0.08 10^3/uL (0.00-0.10); ADD DIFF? NO; ADD MORPH? NO; ADD SCAN? NO; ATYPICAL LYMPHOCYTE FLAG 10 (0-99); FRAGMENT RBC FLAG 0 (0-99); HEMATOCRIT 33.4 % (40.0-51.0); HEMOGLOBIN 11.7 g/dL (13.7-17.5); LEFT SHIFT FLG 0 (0-99); LIPEMIA HEMOLYSIS FLAG 90 (0-99); MEAN CELL HEMOGLOBIN 31.4 pg (27.9-34.1); MEAN CELL VOLUME 89.5 fL (81.5-99.8); MEAN PLATELET VOLUME 9.7 fL (8.7-11.7); PLATELET CLUMPS FLAG 0 (0-99); PLATELET COUNT 209 10^3/uL (150-400); RED BLOOD CELL COUNT 3.73 10^6/uL (4.40-6.38); RED CELL DISTRIBUTION WIDTH 14.7 % (11.5-15.2)
[2016-04-30 04:42] LABS: ALANINE AMINOTRANSFERASE 23 IU/L (21-72); ALBUMIN 2.9 g/dL (3.5-5.0); ALKALINE PHOSPHATASE 73 IU/L (38-126); ANION GAP 12 mEq/L (8-16); ASPARTATE AMINOTRANSFERASE 28 IU/L (17-59); BILIRUBIN,TOTAL 0.4 mg/dL (0.1-1.4); CALCIUM 8.3 mg/dL (8.5-10.4); CARBON DIOXIDE 21 mEq/l (22-31); CHLORIDE 103 mEq/L (97-110); CREATININE 0.9 mg/dL (0.7-1.3); GLOMERULAR FILTRATION RATE > 60; GLUCOSE 145 mg/dL (70-100); POTASSIUM 4.8 mEq/L (3.5-5.2); SODIUM 136 mEq/L (134-144); TOTAL PROTEIN 6.6 g/dL (6.3-8.2)
[2016-04-30] MEDS: IPRATROPIUM/ALBUTEROL 3 ML DEYVIAL IH SCH (04:53)
[2016-04-30] MEDS: ACETYLCYSTEINE 10% 30 ML VIAL IH SCH (04:53)
[2016-04-30 05:11] LABS: BASE EXCESS -4.9 mEq/L (-2.5-2.5); BICARBONATE 19 mEq/L (22-26); MEASURED OXYGEN SATURATION 89 % (92-95); PCO2 35 mmHg (34-38); PO2 60 mmHg (65-75); TCO2 20 mEq/L (23-27)
[2016-04-30 05:13] LABS: ASSIST CONTROL YES; O2 CONCENTRATIION 75 % (0-100); P/F RATIO 80 RATIO
[2016-04-30] MEDS: FAMOTIDINE 20 MG/NACL 50 ML IV SCH ×2 (08:34→21:04)
[2016-04-30] MEDS: ENOXAPARIN 40 MG/0.4 ML SYR SC SCH (08:44)
[2016-04-30] MEDS: ARIPiprazole 5 MG TAB TUBE SCH (08:45)
[2016-04-30] MEDS: NICOTINE 21 MG/24 HR PATCH TD SCH (08:45)
[2016-04-30] MEDS: buPROPion 100 MG TAB TUBE SCH ×3 (08:45→21:04)
[2016-04-30] MEDS: FLUoxetine 20 MG CAP TUBE SCH (08:52)
[2016-04-30] MEDS ORDERED: ALBUTEROL 60 PUFFS/8 GM MDI IH SCH (10:00)
[2016-04-30] MEDS: VANCOMYCIN 1.5 GM in D5W 250 ML IV SCH ×2 (10:42→21:31)
--- NOTE | 2016-04-30 13:21 | PDINTPN ---
Oil Well Pumper Progress Note Assessment/Plan: Assessment: Acute respiratory failure. Secondary to progressive pneumonia and/or ARDS. On the ventilator, still on high-flow oxygen at 75% FiO2. Initial community- acquired pneumonia present on admission. Cultures negative. On Levaquin and vancomycin. COPD, with exacerbation. On bronchodilators, steroids. History of depression, psychiatric disease. History of hypertension: Prazosin on hold. DVT prophylaxis: On enoxaparin GI prophylaxis: On Pepcid Nutrition: None. Will start tube feeding Plan: Continue ventilatory support, decrease FiO2 as possible. Follow chest x- ray, blood gas, laboratory. Continue antibiotics, bronchodilator therapy and bronchopulmonary care. Will continue steroids but decrease... Will start tube feedings. 45 minutes of critical care time spent directly with the patient. Discussed with respiratory therapy, nursing, hospitalist, and ICU multi disciplinary team. Subjective: Sedated, on the ventilator, appears comfortable. When sedation is lightened he becomes somewhat agitated Objective: Vital Signs Temp Pulse Resp BP Pulse Ox 35.9 C L 45 L 26 H 97/56 L 95 04/30/16 12:00 04/30/16 13:00 04/30/16 13:00 04/30/16 13:00 04/30/16 13:00 Microbiology 04/29/16 Unknown - Final Sputum, Induced/Suctioned 04/27/16 12:10 - Final Sputum, Expectorated Sputum Culture - Final Laboratory Results 04/30/16 04:15 04/30/16 04:15 04/29/16 04/30/16 05/01/16 05:59 05:59 05:59 Intake Total 858 3030 Output Total 1050 1090 Balance -192 1940 PT 13.8 SEC (12.0-15.0) 04/27/16 09:25 INR 1.07 (0.83-1.16) 04/27/16 09:25 Laboratory Tests 04/30/16 05:05 pCO2 35 pO2 60 L ABG pH 7.36 ABG O2 Saturation 89 L O2 Concentration % 75 Set Respiration Rate 26 Assist Control YES Tidal Volume 600 PEEP 8 CXR: Bilateral infiltrates persist, about the same. Lines and tubes in good position. Physical Exam - Physical Exam General Appearance: no apparent distress, other (Sedated, on ventilator) EENT: anisocoria (Chronic), ET tube, other (NG tube in place), No PERRL/EOMI Neck: normal inspection (No jugular venous distension obvious) Respiratory: decreased breath sounds, rales (On right side greater than left), other (Consolidative changes on right: Bronchial), No normal breath sounds, No respiratory distress, No rhonchi, No pleural rub Cardiac/Chest: bradycardia (Sinus) Abdomen: non-tender, soft, No normal bowel sounds (Decreased) Male Genitalia: other (Allred catheter in place, good urine output.) Skin: normal color, warm/dry Extremities: pedal edema (Trace) Neuro/Psych: no motor/sensory deficits (Moves all extremities) ICD10 Worksheet Patient Problems: Problems Problem Status Onset Acute renal failure Acute Pneumonia Acute Severe sepsis Acute Subarachnoid hemorrhage Acute
[2016-04-30] MEDS: lamoTRIgine 100 MG TAB PO SCH ×2 (15:43→21:04)
[2016-04-30] MEDS: LORazepam 2 MG/ML INJ IVP PRN (15:48)
[2016-04-30] MEDS: ALBUTEROL 60 PUFFS/8 GM MDI IH SCH ×2 (16:01→19:45)
[2016-04-30] MEDS: GABAPENTIN 250 MG/5 ML 30 ML BOTTLE PO SCH ×2 (16:40→23:03)
--- NOTE | 2016-04-30 19:00 | HOSPPROG ---
Hospitalist Progress Note Assessment/Plan: Assessment: 50-year-old male presents with severe sepsis in the setting of community-acquired pneumonia, c/b ARDS Plan: 1. Severe sepsis. Evidenced by sepsis-2 and sepsis-3 criteria including fever with maximum temperature of 39.4degrees, tachypnea with respirations of 28, tachycardia with heart rate of 122, hypotension with mean arterial pressure of 65, resulting in autonomic dysregulation in the setting of community-acquired pneumonia and resultant end-organ failure notably respiratory failure, encephalopathy, acute kidney injury - hold IVF given ARDS - cont Abx 2. ARDS and acute hypoxic respiratory failure. Evidenced by SpO2 of 87%, visible shortness of breath, objective tachypnea and respiratory rate of 28, requiring intubation an FiO2 of 80%, secondary to a combination of community- acquired pneumonia and most likely development of ARDS, CXR w/ near white out of R w/ some improvement in base (personally interpreted) - weaned FiO2 to 75% today - cont attempts to diuresis 3. Community acquired pneumonia. Sputum w/ 2+ GPC clusters, has been hospitalized > 48hrs prior to decline - d/w Dr. Crowell, recs cont vanco and levofloxacin, D#2 4. JOLLY. 2/2 hypoperfusion in setting of sev sepsis, s/p IVF, resolved 5. Acute COPD exacerbation. Resolved w/ steroids/nebs Diet. NPO Code. Full PPx. High risk, lovenox 40 Dispo. ADD uncertain, pending stabilization of above High complexity patient, high risk of worsening morbidity and/or mortality secondary to the high level of severity conditions outlined above. Subjective: Patient remains intubated and sedated Objective: Vital Signs Temp Pulse Resp BP Pulse Ox 36.1 C 46 L 26 H 102/84 H 94 04/30/16 16:10 04/30/16 17:00 04/30/16 17:00 04/30/16 17:00 04/30/16 17:00 Microbiology 04/29/16 Unknown - Final Sputum, Induced/Suctioned Laboratory Results 04/30/16 04:15 04/30/16 04:15 04/29/16 04/30/16 05/01/16 05:59 05:59 05:59 Intake Total 858 3030 1224 Output Total 1050 1090 1000 Balance -192 1940 224 PT 13.8 SEC (12.0-15.0) 04/27/16 09:25 INR 1.07 (0.83-1.16) 04/27/16 09:25 - Physical Exam Constitutional: no apparent distress, not in pain, chronically ill appearing, No uncomfortable Eyes: anicteric sclera, other (Left pupil constricted, right pupil asymmetric and mildly dilated, fixed) Cardiovascular: No systolic murmur, No irregularly irregular, No tachycardia, No edema Respiratory: reduced air movement (On right), rhonchi (On inspiration bilaterally), No expiratory wheeze, No bronchial breath sounds Gastrointestinal: No normoactive bowel sounds (Hypoactive bowel sounds), No tenderness, No guarding, No distension Neurologic: other (Response to painful stimuli) ICD10 Worksheet Patient Problems: Problems Problem Status Onset Acute renal failure Acute Pneumonia Acute Severe sepsis Acute Subarachnoid hemorrhage Acute
[2016-05-01] MEDS: ALBUTEROL 60 PUFFS/8 GM MDI IH SCH ×7 (00:24→23:48)
[2016-05-01] MEDS: methylPREDNISolone SOD SUCC 125 MG/2 ML VIAL IVP SCH ×3 (00:29→21:52)
[2016-05-01] MEDS: PROPOFOL/EMULSION 100 ML IV SCH ×6 (01:32→22:00)
[2016-05-01 04:45] LABS: BASE EXCESS -3.2 mEq/L (-2.5-2.5); BICARBONATE 22 mEq/L (22-26); MEASURED OXYGEN SATURATION 98 % (92-95); PCO2 41 mmHg (34-38); PO2 129 mmHg (65-75); TCO2 23 mEq/L (23-27)
[2016-05-01 04:46] LABS: ASSIST CONTROL YES; END TIDAL CO2 38; O2 CONCENTRATIION 75 % (0-100); P/F RATIO 172 RATIO
[2016-05-01 04:54] LABS: ADD DIFF? YES; ADD MORPH? NO; ADD SCAN? NO; ATYPICAL LYMPHOCYTE FLAG 10 (0-99); FRAGMENT RBC FLAG 0 (0-99); HEMATOCRIT 35.9 % (40.0-51.0); LEFT SHIFT FLG 20 (0-99); LIPEMIA HEMOLYSIS FLAG 80 (0-99); MEAN CELL HEMOGLOBIN 29.4 pg (27.9-34.1); MEAN CELL HEMOGLOBIN CONCENTR. 33.4 g/dL (32.4-36.7); MEAN PLATELET VOLUME 9.5 fL (8.7-11.7); PLATELET CLUMPS FLAG 10 (0-99); PLATELET COUNT 269 10^3/uL (150-400); RED BLOOD CELL COUNT 4.08 10^6/uL (4.40-6.38); RED CELL DISTRIBUTION WIDTH 14.9 % (11.5-15.2)
[2016-05-01 05:04] LABS: ALANINE AMINOTRANSFERASE 27 IU/L (21-72); ALBUMIN 3.1 g/dL (3.5-5.0); ALKALINE PHOSPHATASE 82 IU/L (38-126); ANION GAP 11 mEq/L (8-16); ASPARTATE AMINOTRANSFERASE 75 IU/L (17-59); BILIRUBIN,TOTAL 0.3 mg/dL (0.1-1.4); CALCIUM 8.7 mg/dL (8.5-10.4); CARBON DIOXIDE 24 mEq/l (22-31); CHLORIDE 109 mEq/L (97-110); GLOMERULAR FILTRATION RATE > 60; GLUCOSE 150 mg/dL (70-100); POTASSIUM 4.6 mEq/L (3.5-5.2); SODIUM 144 mEq/L (134-144); TOTAL PROTEIN 6.3 g/dL (6.3-8.2)
[2016-05-01 05:48] LABS: GIANT PLATELETS PRESENT; PLATELET ESTIMATE ADEQUATE (ADEQ); TOXIC GRANULATION PRESENT
[2016-05-01] MEDS: NICOTINE 21 MG/24 HR PATCH TD SCH (07:54)
[2016-05-01] MEDS: FAMOTIDINE 20 MG/NACL 50 ML IV SCH ×2 (07:55→21:52)
[2016-05-01] MEDS: ENOXAPARIN 40 MG/0.4 ML SYR SC SCH (07:58)
[2016-05-01] MEDS ORDERED: NS 1,000 ML IV SCH (10:15)
[2016-05-01] MEDS: VANCOMYCIN 1.5 GM in D5W 250 ML IV SCH ×2 (10:29→22:04)
--- NOTE | 2016-05-01 10:39 | HOSPPROG ---
Hospitalist Progress Note Assessment/Plan: 50 yo M w severe sepsis, pneumonia, hypoxiemic respiratory failure sepsis: off pressors taper steroids metabolic acidosis improved CAP: sputum w gpc's in clusters and chains but no ID or sensitivities continue vanc and levoflox given suspected strep, would be ideal to rx w betalactam renal: bun and cr rising slightly but cvp is 14 follow daily actively diuresing proph: LMWH agitation: improved- no longer requiring paralytics continue sedation dispo: icu resp failure: 2/2 CAP and subsequent ards continue vent support SBT when appropriate SVT: had a run of narrowx complex tachycardia yest afternoon (interp by me) 2/2 critical illness follow dispo: ICU Subjective: off pressors. no longer paralyzed. NGT coiled ion esophagus but ultimately in stomach (inter by me). case d/w dr rosenberg Objective: Vital Signs Temp Pulse Resp BP Pulse Ox 36.3 C 49 L 26 H 116/67 99 05/01/16 08:00 05/01/16 10:00 05/01/16 10:00 05/01/16 10:00 05/01/16 10:00 Microbiology 04/29/16 Unknown - Final Sputum, Induced/Suctioned Laboratory Results 05/01/16 04:40 05/01/16 04:40 04/30/16 05/01/16 05/02/16 05:59 05:59 05:59 Intake Total 3030 2436 Output Total 1090 1750 Balance 1940 686 PT 13.8 SEC (12.0-15.0) 04/27/16 09:25 INR 1.07 (0.83-1.16) 04/27/16 09:25 - Physical Exam Constitutional: no apparent distress, other (sedated but arousable.) Eyes: PERRL, anicteric sclera Ears, Nose, Mouth, Throat: moist mucous membranes, hearing normal Cardiovascular: regular rate and rhythym, no murmur, rub, or gallop, No tachycardia Respiratory: other (very rhoncorous anterolat) Gastrointestinal: normoactive bowel sounds, soft, non-tender abdomen, No guarding, No rebound Genitourinary: no bladder fullness, sorto in urethra Skin: warm, normal color Musculoskeletal: full muscle strength, no muscle tenderness Neurologic: other (follows simple commands. ) Psychiatric: interacting appropriately, No not anxious Lymph, Heme, Immunologic: no cervical LAD ICD10 Worksheet Patient Problems: Problems Problem Status Onset Acute renal failure Acute Pneumonia Acute Severe sepsis Acute Subarachnoid hemorrhage Acute
[2016-05-01] MEDS: GABAPENTIN 250 MG/5 ML 30 ML BOTTLE PO SCH ×3 (11:54→22:04)
[2016-05-01] MEDS: lamoTRIgine 100 MG TAB PO SCH ×2 (11:56→21:53)
[2016-05-01] MEDS: FLUoxetine 20 MG CAP TUBE SCH (11:56)
[2016-05-01] MEDS: buPROPion 100 MG TAB TUBE SCH ×3 (11:56→21:53)
[2016-05-01] MEDS: ARIPiprazole 5 MG TAB TUBE SCH (11:56)
[2016-05-01] MEDS ORDERED: FUROSEMIDE 20 MG/2 ML VIAL IVP ONE (13:50)
--- NOTE | 2016-05-01 13:50 | PDINTPN ---
Senior Credit Analyst Progress Note Assessment/Plan: Assessment: Acute respiratory failure. Secondary to progressive pneumonia and/or ARDS. On the ventilator, with improving oxygenation and x-ray. Initial community- acquired pneumonia present on admission. Cultures negative. On Levaquin and vancomycin. COPD, with exacerbation. On bronchodilators, steroids. History of depression, psychiatric disease. History of hypertension: Prazosin on hold. DVT prophylaxis: On enoxaparin GI prophylaxis: On Pepcid Nutrition: On tube feedings Plan: Continue ventilatory support, decrease FiO2. Start CPAP trials. Follow chest x-ray, blood gas, laboratory. Continue antibiotics, bronchodilator therapy and bronchopulmonary care. Will continue steroids but decrease... Continue tube feedings, vent slowly. 50 minutes of critical care time spent directly with the patient. Discussed with respiratory therapy, nursing, hospitalist, and ICU multi disciplinary team. Subjective: Sedated, on the ventilator, appears comfortable most of the time. Some agitation, tries to sit up at times. Objective: Vital Signs Temp Pulse Resp BP Pulse Ox 36.5 C 51 L 26 H 106/61 95 05/01/16 12:00 05/01/16 12:00 05/01/16 12:00 05/01/16 12:00 05/01/16 12:00 Microbiology 04/29/16 Unknown - Final Sputum, Induced/Suctioned Sputum Culture - Final Laboratory Results 05/01/16 04:40 05/01/16 04:40 04/30/16 05/01/16 05/02/16 05:59 05:59 05:59 Intake Total 3030 2436 Output Total 1090 1750 Balance 1940 686 PT 13.8 SEC (12.0-15.0) 04/27/16 09:25 INR 1.07 (0.83-1.16) 04/27/16 09:25 Laboratory Tests 05/01/16 05/01/16 05/01/16 04:40 04:40 08:23 pCO2 41 H pO2 129 H ABG pH 7.34 L O2 Concentration % 75 Set Respiration Rate 26 Tidal Volume 600 PEEP 8 Total Bilirubin 0.3 AST 75 H ALT 27 Albumin 3.1 L Vancomycin Trough 15.3 CXR: Improving bilateral infiltrates. Left hemidiaphragm remains high. Lines and tubes in good position. Physical Exam - Physical Exam General Appearance: obese, other (Sedated, on ventilator) EENT: anisocoria, ET tube, other (NG), No PERRL/EOMI Neck: normal inspection (No obvious jugular venous distension but large neck) Respiratory: decreased breath sounds, rales (Bilaterally at the bases), No rhonchi, No wheezing Cardiac/Chest: bradycardia, systolic murmur Abdomen: non-tender, soft (Obese), No normal bowel sounds (Decreased, present) Male Genitalia: other (Allred catheter, good urine output, input greater than output by 2.5 L last 48 hours) Skin: normal color, warm/dry Extremities: pedal edema (Trace +) Neuro/Psych: no motor/sensory deficits (Moves all extremities), No cognition abnormalities (Can't assess) ICD10 Worksheet Patient Problems: Problems Problem Status Onset Subarachnoid hemorrhage Acute Pneumonia Acute Severe sepsis Acute Acute renal failure Acute
[2016-05-01] MEDS ORDERED: OLANZapine DISINTEGR 10 MG TAB PO ONE (21:43)
[2016-05-02] MEDS: PROPOFOL/EMULSION 100 ML IV SCH ×6 (01:21→12:52)
[2016-05-02] MEDS: ALBUTEROL 60 PUFFS/8 GM MDI IH SCH ×4 (03:53→16:52)
[2016-05-02 05:31] LABS: BASE EXCESS -1.6 mEq/L (-2.5-2.5); BICARBONATE 22 mEq/L (22-26); MEASURED OXYGEN SATURATION 97 % (92-95); PCO2 34 mmHg (34-38); PO2 99 mmHg (65-75); TCO2 23 mEq/L (23-27)
[2016-05-02 05:32] LABS: END TIDAL CO2 38; O2 CONCENTRATIION 60 % (0-100); P/F RATIO 165 RATIO; PATIENT RATE 26; PRESSURE SUPPORT 7; SIMV YES
[2016-05-02 05:36] LABS: ADD DIFF? YES; ADD MORPH? NO; ADD SCAN? NO; ATYPICAL LYMPHOCYTE FLAG 40 (0-99); FRAGMENT RBC FLAG 0 (0-99); HEMATOCRIT 35.1 % (40.0-51.0); HEMOGLOBIN 11.7 g/dL (13.7-17.5); LEFT SHIFT FLG 20 (0-99); LIPEMIA HEMOLYSIS FLAG 80 (0-99); MEAN CELL HEMOGLOBIN 30.2 pg (27.9-34.1); MEAN CELL HEMOGLOBIN CONCENTR. 33.3 g/dL (32.4-36.7); MEAN CELL VOLUME 90.5 fL (81.5-99.8); MEAN PLATELET VOLUME 9.9 fL (8.7-11.7); PLATELET CLUMPS FLAG 0 (0-99); PLATELET COUNT 283 10^3/uL (150-400); RED BLOOD CELL COUNT 3.88 10^6/uL (4.40-6.38); RED CELL DISTRIBUTION WIDTH 15.1 % (11.5-15.2)
[2016-05-02 05:45] LABS: ALANINE AMINOTRANSFERASE 33 IU/L (21-72); ALBUMIN 3.1 g/dL (3.5-5.0); ALKALINE PHOSPHATASE 76 IU/L (38-126); ANION GAP 11 mEq/L (8-16); ASPARTATE AMINOTRANSFERASE 64 IU/L (17-59); BILIRUBIN,TOTAL 0.5 mg/dL (0.1-1.4); CALCIUM 8.6 mg/dL (8.5-10.4); CARBON DIOXIDE 25 mEq/l (22-31); CHLORIDE 108 mEq/L (97-110); CREATININE 0.8 mg/dL (0.7-1.3); GLOMERULAR FILTRATION RATE > 60; GLUCOSE 131 mg/dL (70-100); POTASSIUM 4.7 mEq/L (3.5-5.2); SODIUM 144 mEq/L (134-144); TOTAL PROTEIN 6.4 g/dL (6.3-8.2)
[2016-05-02 06:58] LABS: PLATELET ESTIMATE ADEQUATE (ADEQ)
[2016-05-02 07:00] LABS: TOXIC GRANULATION PRESENT
[2016-05-02] MEDS ORDERED: ZOLPIDEM TARTRATE 5 MG TAB TUBE PRN (09:43)
[2016-05-02] MEDS: ENOXAPARIN 40 MG/0.4 ML SYR SC SCH (09:49)
[2016-05-02] MEDS: FLUoxetine 20 MG CAP TUBE SCH (09:50)
--- NOTE | 2016-05-02 09:50 | HOSPPROG ---
Hospitalist Progress Note Assessment/Plan: 50 yo M w severe sepsis, pneumonia, hypoxiemic respiratory failure sepsis: off pressors taper steroids metabolic acidosis improved septic physiology has resolved CAP: sputum w gpc's in clusters and chains but no ID or sensitivities continue vanc and levoflox given suspected strep, would be ideal to rx w betalactam renal: bun and cr rising slightly but cvp is 14 follow daily actively diuresing received lasix yesterday w stable renal function 900 neg yesterday may reasonable to give lasix again today proph: LMWH agitation: improved- no longer requiring paralytics continue sedation he is difficult to sedate and wild when undersedated, posing risk to himself and therefore requiring sedation dispo: icu resp failure: 2/2 CAP and subsequent ards continue vent support CPAP trial today SVT: had a run of narrow complex tachycardia yest afternoon (interp by me) 2/2 critical illness follow dispo: ICU Subjective: cxr- unchanged b/l airspace disease (interp by me). case d/w dr rosenberg Objective: Vital Signs Temp Pulse Resp BP Pulse Ox 37.1 C 47 L 26 H 124/71 H 97 05/02/16 04:00 05/02/16 08:00 05/02/16 08:00 05/02/16 08:00 05/02/16 08:00 Microbiology 04/29/16 Unknown - Final Sputum, Induced/Suctioned Sputum Culture - Final Laboratory Results 05/02/16 05:00 05/02/16 05:00 05/01/16 05/02/16 05/03/16 05:59 05:59 06:59 Intake Total 2436 1659 Output Total 1750 2550 250 Balance 686 -891 -250 PT 13.8 SEC (12.0-15.0) 04/27/16 09:25 INR 1.07 (0.83-1.16) 04/27/16 09:25 - Physical Exam Constitutional: other (intubated but arousable. heavily sedated) Eyes: PERRL, anicteric sclera Ears, Nose, Mouth, Throat: moist mucous membranes, hearing normal Cardiovascular: regular rate and rhythym, no murmur, rub, or gallop Respiratory: other (very rhoncorous b/l. good air movement) Gastrointestinal: normoactive bowel sounds, soft, non-tender abdomen Genitourinary: sorto in urethra, No no bladder fullness Skin: warm, normal color Musculoskeletal: full muscle strength, no muscle tenderness Neurologic: No AAOx3, No weakness Psychiatric: interacting appropriately, not anxious ICD10 Worksheet Patient Problems: Problems Problem Status Onset Subarachnoid hemorrhage Acute Pneumonia Acute Severe sepsis Acute Acute renal failure Acute
[2016-05-02] MEDS: buPROPion 100 MG TAB TUBE SCH ×3 (09:51→21:37)
[2016-05-02] MEDS: ARIPiprazole 5 MG TAB TUBE SCH (09:51)
[2016-05-02] MEDS: FAMOTIDINE 20 MG/NACL 50 ML IV SCH (09:52)
[2016-05-02] MEDS: methylPREDNISolone SOD SUCC 125 MG/2 ML VIAL IVP SCH (09:52)
[2016-05-02] MEDS: lamoTRIgine 100 MG TAB PO SCH (09:52)
[2016-05-02] MEDS: VANCOMYCIN 1.5 GM in D5W 250 ML IV SCH ×2 (10:00→21:37)
[2016-05-02] MEDS: NICOTINE 21 MG/24 HR PATCH TD SCH (12:20)
[2016-05-02] MEDS: GABAPENTIN 250 MG/5 ML 30 ML BOTTLE PO SCH ×3 (12:32→21:36)
--- NOTE | 2016-05-02 15:52 | PDINTPN ---
Sample Driller Progress Note Assessment/Plan: Assessment: Acute respiratory failure. Improving infiltrates and oxygenation. Initial community-acquired pneumonia present on admission on the left. Then progressed to the right side secondary to occult aspiration?, progressive pneumonia, and/ or ARDS. This led to respiratory failure and intubation on 04/29. Now on 40% with no real ability he to assess weaning parameters or do full CPAP trials. Cultures negative. On Levaquin and vancomycin. COPD, with exacerbation. On bronchodilators, steroids. History of depression, psychiatric disease. History of hypertension: Prazosin on hold. DVT prophylaxis: On enoxaparin GI prophylaxis: On Pepcid Nutrition: On tube feedings Plan: Will likely extubate and see how he does. Anticipate this point his respiratory failure has resolved and that he will do okay off the ventilator. Will keep in the ICU.. Follow chest x-ray, blood gas if needed, and laboratory. Continue antibiotics, bronchodilator therapy and bronchopulmonary care. Will continue steroids but decrease... Continue tube feedings for now. Assess swallow post extubation. 55 minutes of critical care time spent directly with the patient. Discussed with respiratory therapy, nursing, hospitalist, and ICU multi disciplinary team. Subjective: Remain sedated, on ventilator. However, despite very high doses of sedative his he wakes up, tries to get out of bed, pulls at tubes, etc. Now on 40%. Cannot get adequate data on weaning parameters comma too agitated to wean. May need to be extubated empirically. Objective: Vital Signs Temp Pulse Resp BP Pulse Ox 36.5 C 100 15 127/69 H 92 05/02/16 15:23 05/02/16 15:23 05/02/16 15:23 05/02/16 15:23 05/02/16 15:23 Microbiology 04/29/16 Unknown - Final Sputum, Induced/Suctioned Sputum Culture - Final Laboratory Results 05/02/16 05:00 05/02/16 05:00 05/01/16 05/02/16 05/03/16 05:59 05:59 06:59 Intake Total 2436 1659 Output Total 1750 6150 325 Balance 686 -891 -325 PT 13.8 SEC (12.0-15.0) 04/27/16 09:25 INR 1.07 (0.83-1.16) 04/27/16 09:25 Cultures: Remain negative. Chest x-ray improving bilateral infiltrates. Lines and tubes in good position Laboratory Tests 05/02/16 05/02/16 05:00 05:25 pCO2 34 pO2 99 H ABG pH 7.42 O2 Concentration % 60 Set Respiration Rate 26 SIMV YES Tidal Volume 600 Calcium 8.6 Total Bilirubin 0.5 D AST 64 H ALT 33 Physical Exam - Physical Exam General Appearance: moderate distress (At times when he wakes up), obese EENT: anisocoria, ET tube, other (Nasogastric tube), No PERRL/EOMI Neck: normal inspection (Large neck) Respiratory: decreased breath sounds, rales (Scattered, right side greater than left), rhonchi (Few), No normal breath sounds, No wheezing Cardiac/Chest: regular rate, rhythm Abdomen: normal bowel sounds, non-tender, soft, other (Tolerating tube feeding) Male Genitalia: other (Allred catheter in place, good urine output) Skin: normal color, warm/dry Extremities: pedal edema (Trace +) Neuro/Psych: no motor/sensory deficits (Moves all extremities), No oriented x 3 , No cognition abnormalities (Can't assess. Disoriented, agitated, struggling against tubes and restraints at times) ICD10 Worksheet Patient Problems: Problems Problem Status Onset Subarachnoid hemorrhage Acute Pneumonia Acute Severe sepsis Acute Acute renal failure Acute
[2016-05-02] MEDS: LORazepam 2 MG/ML INJ IVP PRN ×2 (16:51→21:37)
[2016-05-02] MEDS ORDERED: PRAZOSIN HCL 1 MG CAP TUBE SCH (21:00)
[2016-05-02] MEDS: ALBUTEROL 3 ML DEYVIAL IH SCH (21:35)
[2016-05-02] MEDS: FAMOTIDINE 20 MG TAB TUBE SCH (21:37)
[2016-05-02] MEDS: lamoTRIgine 100 MG TAB TUBE SCH (21:38)
[2016-05-03 06:14] LABS: ADD DIFF? YES; ADD MORPH? NO; ADD SCAN? NO; ATYPICAL LYMPHOCYTE FLAG 20 (0-99); FRAGMENT RBC FLAG 0 (0-99); HEMOGLOBIN 12.6 g/dL (13.7-17.5); LEFT SHIFT FLG 40 (0-99); LIPEMIA HEMOLYSIS FLAG 80 (0-99); MEAN CELL HEMOGLOBIN 29.6 pg (27.9-34.1); MEAN CELL HEMOGLOBIN CONCENTR. 33.2 g/dL (32.4-36.7); MEAN CELL VOLUME 89.4 fL (81.5-99.8); MEAN PLATELET VOLUME 9.4 fL (8.7-11.7); PLATELET CLUMPS FLAG 0 (0-99); PLATELET COUNT 286 10^3/uL (150-400); RED BLOOD CELL COUNT 4.25 10^6/uL (4.40-6.38); RED CELL DISTRIBUTION WIDTH 14.8 % (11.5-15.2)
[2016-05-03 06:44] LABS: ALANINE AMINOTRANSFERASE 32 IU/L (21-72); ALBUMIN 3.1 g/dL (3.5-5.0); ALKALINE PHOSPHATASE 76 IU/L (38-126); ANION GAP 11 mEq/L (8-16); ASPARTATE AMINOTRANSFERASE 59 IU/L (17-59); BILIRUBIN,TOTAL 0.6 mg/dL (0.1-1.4); CALCIUM 8.6 mg/dL (8.5-10.4); CARBON DIOXIDE 26 mEq/l (22-31); CHLORIDE 106 mEq/L (97-110); CREATININE 0.8 mg/dL (0.7-1.3); GLOMERULAR FILTRATION RATE > 60; GLUCOSE 91 mg/dL (70-100); SODIUM 143 mEq/L (134-144); TOTAL PROTEIN 6.3 g/dL (6.3-8.2)
[2016-05-03 07:19] LABS: PLATELET ESTIMATE ADEQUATE (ADEQ); TOXIC GRANULATION PRESENT
[2016-05-03] MEDS: buPROPion 100 MG TAB TUBE SCH (08:34)
[2016-05-03] MEDS: ENOXAPARIN 40 MG/0.4 ML SYR SC SCH (08:34)
[2016-05-03] MEDS: NICOTINE 21 MG/24 HR PATCH TD SCH (08:35)
[2016-05-03] MEDS: GABAPENTIN 250 MG/5 ML 30 ML BOTTLE PO SCH (08:35)
[2016-05-03] MEDS: FAMOTIDINE 20 MG TAB TUBE SCH (08:35)
[2016-05-03] MEDS: lamoTRIgine 100 MG TAB TUBE SCH (08:35)
[2016-05-03] MEDS: FLUoxetine 20 MG CAP TUBE SCH (08:35)
[2016-05-03] MEDS: ARIPiprazole 5 MG TAB TUBE SCH (08:37)
[2016-05-03] MEDS: VANCOMYCIN 1.5 GM in D5W 250 ML IV SCH (08:38)
[2016-05-03] MEDS: ALBUTEROL 3 ML DEYVIAL IH SCH ×4 (09:23→20:54)
[2016-05-03] MEDS ORDERED: FUROSEMIDE 40 MG/4 ML VIAL IVP ONE (09:55)
--- NOTE | 2016-05-03 09:59 | HOSPPROG ---
Hospitalist Progress Note Assessment/Plan: 50 yo M w severe sepsis, pneumonia, hypoxiemic respiratory failure sepsis: off pressors, steroids metabolic acidosis improved septic physiology has resolved CAP: sputum w gpc's in clusters and chains but no ID or sensitivities continue vanc and levoflox b/l airpsace disease: suspect component of volume overload give lasix X1 renal: stable renal function sorto: remove today proph: LMWH agitation: extubated yesterday and not agitated remove sorto dispo: icu resp failure: 2/2 CAP and subsequent ards extubated lasix as above SVT: had a run of narrow complex tachycardia 04/30 (interp by me) 2/2 critical illness follow dispo: ICU Subjective: case d/w dr rosenberg. AM cxr w b/l airspace disease, a bit worse than yesterday (interp by me) Objective: Vital Signs Temp Pulse Resp BP Pulse Ox 37.0 C 97 25 H 130/72 H 90 L 05/03/16 04:00 05/03/16 04:00 05/03/16 06:00 05/03/16 06:00 05/03/16 06:00 Laboratory Results 05/03/16 05:40 05/03/16 05:40 05/02/16 05/03/16 05/04/16 04:59 05:59 05:59 Intake Total Output Total Balance PT 13.8 SEC (12.0-15.0) 04/27/16 09:25 INR 1.07 (0.83-1.16) 04/27/16 09:25 - Physical Exam Constitutional: no apparent distress, appears nourished Eyes: PERRL, anicteric sclera Ears, Nose, Mouth, Throat: moist mucous membranes, hearing normal Cardiovascular: regular rate and rhythym, no murmur, rub, or gallop, tachycardia Respiratory: other (b/l crackles. good air movement. no wheeze) Gastrointestinal: normoactive bowel sounds, soft, non-tender abdomen Genitourinary: sorto in urethra Skin: warm, normal color Musculoskeletal: full muscle strength, no muscle tenderness Neurologic: AAOx3, sensation intact bilaterally ICD10 Worksheet Patient Problems: Problems Problem Status Onset Acute renal failure Acute Pneumonia Acute Severe sepsis Acute Subarachnoid hemorrhage Acute
[2016-05-03] MEDS: LORazepam 2 MG/ML INJ IVP PRN (12:46)
--- NOTE | 2016-05-03 13:30 | PDINTPN ---
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 Resolved, doing well off the ventilator since extubation 05/02. Initial community-acquired pneumonia present on admission on the left. Then progressed to the right side - secondary to occult aspiration?, progressive pneumonia, and/or ARDS? This led to respiratory failure and intubation on 04/29. On Levaquin and vancomycin. COPD, with exacerbation. On bronchodilators, steroids. History of depression, psychiatric disease. History of hypertension: Prazosin on hold. DVT prophylaxis: On enoxaparin GI prophylaxis: On Pepcid Nutrition: On tube feedings Plan: Will likely extubate and see how he does. Anticipate at this point that his respiratory failure has resolved and that he will do okay off the ventilator. I will need to be at the bedside when extubated. Will keep in the ICU after for closer observation. Follow chest x-ray, blood gas if needed, and laboratory. Continue antibiotics, bronchodilator therapy and bronchopulmonary care. Will continue steroids but decrease... Continue tube feedings for now. Assess swallow post extubation. 55 minutes of critical care time spent directly with the patient. Discussed with respiratory therapy, nursing, hospitalist, and ICU multi disciplinary team. Subjective: Doing well since extubation. Denies shortness of breath that he remains tachypneic. Some cough. Objective: Vital Signs Temp Pulse Resp BP Pulse Ox 36.4 C 102 H 24 H 118/71 95 05/03/16 12:00 05/03/16 12:30 05/03/16 12:30 05/03/16 12:00 05/03/16 12:30 Laboratory Results 05/03/16 05:40 05/03/16 05:40 05/02/16 05/03/16 05/04/16 04:59 05:59 05:59 Intake Total 223 Output Total 675 Balance -452 PT 13.8 SEC (12.0-15.0) 04/27/16 09:25 INR 1.07 (0.83-1.16) 04/27/16 09:25 Laboratory Tests 05/03/16 05:40 Calcium 8.6 AST 59 ALT 32 Albumin 3.1 L CXR: Poor inspiration, possible increased markings. High left hemidiaphragm with atelectasis above. Physical Exam - Physical Exam General Appearance: alert, no apparent distress, obese EENT: anisocoria, other (Nasal cannula at 5 L), No PERRL/EOMI Neck: normal inspection (No obvious JVD. Large neck.) Respiratory: lungs clear (Anteriorly), decreased breath sounds (Especially on the left side.), rales (Bi-basilar rales), rhonchi (Few), No wheezing Cardiac/Chest: tachycardia Abdomen: normal bowel sounds, non-tender, soft, other (Passed swallow eval) Male Genitalia: other Skin: normal color, warm/dry Extremities: pedal edema (Trace +) Neuro/Psych: no motor/sensory deficits (Moves all extremities), disoriented to time, No cognition abnormalities ICD10 Worksheet Patient Problems: Problems Problem Status Onset Acute renal failure Acute Pneumonia Acute Severe sepsis Acute Subarachnoid hemorrhage Acute
[2016-05-03] MEDS ORDERED: ACETAMINOPHEN 325 MG TAB PO PRN (15:48)
[2016-05-03] MEDS ORDERED: ZOLPIDEM TARTRATE 5 MG TAB PO PRN (15:52)
[2016-05-03] MEDS: buPROPion 100 MG TAB PO SCH ×2 (17:43→20:05)
[2016-05-03] MEDS: GABAPENTIN 300 MG CAP PO SCH ×2 (17:43→20:05)
[2016-05-03] MEDS: PRAZOSIN HCL 1 MG CAP PO SCH (20:04)
[2016-05-03] MEDS: lamoTRIgine 100 MG TAB PO SCH (20:06)
[2016-05-04 05:04] LABS: ADD DIFF? YES; ADD MORPH? NO; ADD SCAN? NO; ATYPICAL LYMPHOCYTE FLAG 10 (0-99); FRAGMENT RBC FLAG 0 (0-99); HEMATOCRIT 37.5 % (40.0-51.0); HEMOGLOBIN 12.8 g/dL (13.7-17.5); LEFT SHIFT FLG 70 (0-99); LIPEMIA HEMOLYSIS FLAG 90 (0-99); MEAN CELL HEMOGLOBIN 30.5 pg (27.9-34.1); MEAN CELL HEMOGLOBIN CONCENTR. 34.1 g/dL (32.4-36.7); MEAN CELL VOLUME 89.5 fL (81.5-99.8); MEAN PLATELET VOLUME 9.4 fL (8.7-11.7); PLATELET CLUMPS FLAG 10 (0-99); PLATELET COUNT 270 10^3/uL (150-400); RED BLOOD CELL COUNT 4.19 10^6/uL (4.40-6.38); RED CELL DISTRIBUTION WIDTH 14.7 % (11.5-15.2)
[2016-05-04 05:16] LABS: ALANINE AMINOTRANSFERASE 27 IU/L (21-72); ALBUMIN 3.1 g/dL (3.5-5.0); ALKALINE PHOSPHATASE 74 IU/L (38-126); ANION GAP 10 mEq/L (8-16); ASPARTATE AMINOTRANSFERASE 45 IU/L (17-59); BILIRUBIN,TOTAL 0.6 mg/dL (0.1-1.4); CALCIUM 8.5 mg/dL (8.5-10.4); CARBON DIOXIDE 30 mEq/l (22-31); CHLORIDE 101 mEq/L (97-110); CREATININE 0.8 mg/dL (0.7-1.3); GLOMERULAR FILTRATION RATE > 60; GLUCOSE 98 mg/dL (70-100); POTASSIUM 3.9 mEq/L (3.5-5.2); SODIUM 141 mEq/L (134-144); TOTAL PROTEIN 6.4 g/dL (6.3-8.2)
[2016-05-04 05:43] LABS: GIANT PLATELETS PRESENT; LARGE PLATELETS PRESENT; PLATELET ESTIMATE ADEQUATE (ADEQ); TOXIC GRANULATION PRESENT; TOXIC VACUOLIZATION PRESENT
[2016-05-04] MEDS: ALBUTEROL 3 ML DEYVIAL IH SCH ×2 (05:56→09:47)
[2016-05-04] MEDS: lamoTRIgine 100 MG TAB PO SCH ×2 (08:02→20:46)
[2016-05-04] MEDS: FLUoxetine 20 MG CAP PO SCH (08:02)
[2016-05-04] MEDS: ARIPiprazole 5 MG TAB PO SCH (08:02)
[2016-05-04] MEDS: buPROPion 100 MG TAB PO SCH ×3 (08:02→20:46)
[2016-05-04] MEDS: NICOTINE 21 MG/24 HR PATCH TD SCH (08:03)
[2016-05-04] MEDS: ENOXAPARIN 40 MG/0.4 ML SYR SC SCH (08:03)
[2016-05-04] MEDS: GABAPENTIN 300 MG CAP PO SCH ×3 (08:03→20:46)
[2016-05-04] MEDS ORDERED: FUROSEMIDE 40 MG/4 ML VIAL IVP ONE (09:59)
--- NOTE | 2016-05-04 10:39 | HOSPPROG ---
Hospitalist Progress Note Assessment/Plan: 50 yo M w severe sepsis, pneumonia, hypoxiemic respiratory failure sepsis: off pressors, steroids metabolic acidosis improved septic physiology has resolved CAP: sputum w gpc's in clusters and chains but no ID or sensitivities on levoflox alone b/l airpsace disease: suspect component of volume overload cxr improving but still abnormal give lasix today agin renal: stable renal function sorto: remove today proph: LMWH agitation: extubated yesterday and not agitated remove sorto dispo: icu resp failure: 2/2 CAP and subsequent ards extubated lasix as above SVT: had a run of narrow complex tachycardia 04/30 (interp by me) 2/2 critical illness NONE FURTHER dispo: NOT HOMELESS LIVES SECTION 8 HOUSING Subjective: case d/w dr herrera. AM cxr w decreased, but still present, b/l airspace disease (interp by me) Objective: Vital Signs Temp Pulse Resp BP Pulse Ox 36.7 C 100 20 132/71 H 63 L 05/04/16 08:22 05/04/16 09:45 05/04/16 09:45 05/04/16 08:22 05/04/16 09:45 Laboratory Results 05/04/16 04:50 05/04/16 04:50 05/03/16 05/04/16 05/05/16 05:59 05:59 05:59 Intake Total 1373 Output Total 1125 Balance 248 PT 13.8 SEC (12.0-15.0) 04/27/16 09:25 INR 1.07 (0.83-1.16) 04/27/16 09:25 - Physical Exam Constitutional: no apparent distress, appears nourished, other (looks better!) Eyes: PERRL Ears, Nose, Mouth, Throat: moist mucous membranes, hearing normal Cardiovascular: regular rate and rhythym, no murmur, rub, or gallop Respiratory: no respiratory distress, No no rales or rhonchi, No expiratory wheeze, No inspiratory crackles Gastrointestinal: normoactive bowel sounds, soft, non-tender abdomen Genitourinary: No sorto in urethra Skin: warm, normal color Musculoskeletal: full muscle strength Neurologic: AAOx3 ICD10 Worksheet Patient Problems: Problems Problem Status Onset Acute renal failure Acute Pneumonia Acute Severe sepsis Acute Subarachnoid hemorrhage Acute
[2016-05-04] MEDS: oxyCODONE IR 5 MG TAB PO PRN ×2 (15:42→20:47)
[2016-05-04] MEDS: PRAZOSIN HCL 1 MG CAP PO SCH (20:46)
[2016-05-04 22:55] VITALS: RESP 16
[2016-05-05] MEDS: oxyCODONE IR 5 MG TAB PO PRN (03:16)
[2016-05-05 07:58] VITALS: BP 101/64; PULSE 87; TEMP 97.9
[2016-05-05] MEDS: GABAPENTIN 300 MG CAP PO SCH (08:39)
[2016-05-05] MEDS: ARIPiprazole 5 MG TAB PO SCH (08:39)
[2016-05-05] MEDS: buPROPion 100 MG TAB PO SCH (08:39)
[2016-05-05] MEDS: FLUoxetine 20 MG CAP PO SCH (08:39)
[2016-05-05] MEDS: ENOXAPARIN 40 MG/0.4 ML SYR SC SCH (08:39)
[2016-05-05] MEDS: NICOTINE 21 MG/24 HR PATCH TD SCH (08:40)
[2016-05-05] MEDS: lamoTRIgine 100 MG TAB PO SCH (08:40)
--- NOTE | 2016-05-05 13:06 | GDS ---
[f rep st] DISCHARGE SUMMARY DIAGNOSES: 1. Pneumonia. 2. Ongoing tobacco use. 3. History of seizure disorder with subarachnoid hemorrhage, likely due to alcohol use. 4. Alcoholism, sober for many years. 5. History of peripheral neuropathy, thought due to alcoholism. 6. Anemia of chronic disease. 7. Dyslipidemia. 8. Depression. 9. Gout. 10. Disability. Patient on disability due to neuropathy and likely mental illness. PROCEDURES DONE: 1. Mechanical ventilation. 2. PICC line insertion. 3. Extubation. 4. Sniff test: Absent left hemidiaphragmatic excursion. CONSULTATIONS: Critical Care, Dr. Akin Crowell. HOSPITAL COURSE: The patient is a 50-year-old man on disability with a history of ongoing tobacco u se, peripheral neuropathy, who came in with shortness of breath, found to have a large left-sided pn eumonia associated with sepsis and renal insufficiency, initially started on antibiotic steroids and bronchodilators. He became increasingly agitated, placed on BiPAP, and required mechanical ventila tion. He was intubated. In the intensive care unit, he has slowly improving respiratory failure. His initial community-acquired pneumonia present on admission on the left progressed to the right si de, thought secondary to possible occult aspiration and/or ARDS, and coverage was broadened to Levaq uin and vancomycin. He improved and eventually was extubated, and monitored in the intensive care u nit for 2 days and eventually transferred up to the floor. Today, he is doing well. He is satting over 90% on 2 L. He says he is feeling much better. He is comfortable. He is able to ambulate and care for himself at home. He does live home alone and is on disability, but feels confident that christophe bains is ready for discharge. CONDITION ON DISCHARGE: Good. He is afebrile. Heart rate is 87, O2 sat is 85% on room air and 91 on 2 L. Blood pressure 101/64. He is alert and oriented. His lungs have diminished breath sounds o n the left base, otherwise clear. No significant edema. Heart is regular. DISCHARGE MEDICATIONS: Please see discharge medication form. He will continue his usual medication s and finish 5 more days of Levaquin. FOLLOWUP INSTRUCTIONS: He will follow up with his primary care provider, Dr. Murphy, this week. He w ill also have home care nursing and therapy. Total time spent with patient on day of discharge and coordination of care is 40 minutes. /[id number]/MODL
--- NOTE | 2016-05-05 14:04 | PDIAF ---
- Diagnosis Diagnosis: pneumonia and COPD Code Status: Full Code - Medication Management Discharge Medications: Medications to Continue on Transfer ARIPiprazole [Abilify 5 mg (*)] 5 mg PO DAILY 04/13/16 [Last Taken 04/27/16] Prazosin HCl [Minipress 1mg (*)] 3 mg PO HS 04/13/16 [Last Taken 04/26/16] buPROPion XL [Wellbutrin 150mg XL] 300 mg PO DAILY 04/13/16 [Last Taken 04/27/16 ] traZODone [traZODone 150MG (*)] 300 mg PO HS 04/13/16 [Last Taken 04/26/16] FLUoxetine [Prozac 20 MG (*)] 40 mg PO DAILY 04/27/16 [Last Taken 04/27/16] Ibuprofen [Motrin (*)] 200 mg PO DAILY PRN 04/28/16 [Last Taken Unknown] Albuterol [Ventolin Hfa Inhaler] 200 puffs IH Q4 PRN #1 mdi 05/05/16 [Last Taken Unknown] Gabapentin [Neurontin 300 MG (*)] 600 mg PO TID #0 cap 05/05/16 [Last Taken Unknown] lamoTRIgine [LamICTAL 100 MG (*)] 200 mg PO BID #0 tab 05/05/16 [Last Taken Unknown] levOFLOXACIN [levAQUIN (*)] 750 mg PO DAILY10 #5 tab 05/05/16 [Last Taken Unknown] Fireworks Maker Antibiotics: levaquin for 5 days Discharge Medications: Refer to the Discharge Home Medication list for PRN reason. - Orders Services needed: Home Care, Registered Nurse, Physical Therapy Home Care Face to Face: I certify that this patient was under my care and that I had the required [id number] encounter meeting the encounter requirements on the discharge day. My findings support the fact that the patient is homebound as defined in CMS Chapter 7 Medicare Benefits Manual 30.1.1, The condition of the patient is such that there exists a normal inability to leave home and consequently, leaving home would require a considerable and taxing effort. Diet Recommendation: no restrictions on diet Diet Texture: Regular Texture Diet, Thin Liquids, Meds Whole w/Liquids - Follow Up Care Current Providers and Referrals: Shani Murphy [Primary Care Provider] - As per Instructions
[2016-05-05 16:00] VITALS: O2SAT 92
== END 2016-05-05 15:58 | disposition home health service (06) | DRG 871 ==
LOC: F3E 12:28 → F2N 04-28 23:30 → F3E 05-04 11:02
PROVIDERS: ADMIT Internal Medicine; ATTEND Internal Medicine
PROC: 5A1945Z Respiratory Ventilation, 24-96 Consecutive Hours (ICD-10-PCS; principal; 2016-04-29)
PROC: 0BH17EZ Insertion of Endotracheal Airway into Trachea, Via Natural or Artificial Opening (ICD-10-PCS; principal; 2016-04-29)
PROC: 02HV33Z Insertion of Infusion Device into Superior Vena Cava, Percutaneous Approach (ICD-10-PCS; 2016-04-29)
DX: A41.9 Sepsis, unspecified organism (principal); J18.9 Pneumonia, unspecified organism; J96.01 Acute respiratory failure with hypoxia; J44.1 Chronic obstructive pulmonary disease with (acute) exacerbation; N17.9 Acute kidney failure, unspecified; G40.909 Epilepsy, unspecified, not intractable, without status epilepticus; F10.21 Alcohol dependence, in remission; D63.8 Anemia in other chronic diseases classified elsewhere; E78.5 Hyperlipidemia, unspecified; F32.9 Major depressive disorder, single episode, unspecified; M10.9 Gout, unspecified; G62.9 Polyneuropathy, unspecified; R65.20 Severe sepsis without septic shock; I10 Essential (primary) hypertension; Z72.0 Tobacco use; Z59.0 Homelessness
CPT/HCPCS: 92507-GN; 92523-GN; 92526-GN; 92610-GN; 96365; 97116-GP; 97161-GP; 97166-GO; 97168-GO; 97535-GO; C1751; J0330; J0692; J1650; J1956; J2704; J3010; J3370

== ENCOUNTER → 2016-06-03 | Outpatient (CLI) | payer MEDICAID | LOC: FIMAGING 09:33 → EDSTATUS 10:11 | PROVIDERS: ATTEND Physician Assistant | DX: J98.11 Atelectasis (principal); J98.6 Disorders of diaphragm ==

== ENCOUNTER 2016-08-19 10:21 | Day surgery (SDC) | payer MEDICAID ==
[2016-08-19] MEDS ORDERED: LR 1,000 ML IV ONE (10:49)
[2016-08-19] MEDS ORDERED: LIDOCAINE 1% 2 ML INJ ID PRN (10:49)
[2016-08-19] MEDS ORDERED: IPRATROPIUM/ALBUTEROL 3 ML DEYVIAL IH ONE (11:30)
--- NOTE | 2016-08-19 11:30 | PDANEPAE ---
ANE History of Present Illness 50 year old male for screening colonoscopy ANE Past Medical History Past Medical History: Multi EtOH-related seizures, not drinking now per pt. Recent PNA (April) hospitalized for two weeks. Heavy smoker, trying to quit. Uses O2 at night after PNA, uses less now. RAD - mild? - Cardiovascular History Hx Hypertension: Yes Hx Arrhythmias: No Hx Chest Pain: No Hx Coronary Artery / Peripheral Vascular Disease: No Hx CHF / Valvular Disease: No Hx Palpitations: No - Pulmonary History Hx COPD: No Hx Asthma/Reactive Airway Disease: Yes Hx Recent Upper Respiratory Infection: No Hx Oxygen in Use at Home: Yes O2 in Use at Home (L/minute): 0.5L AT NOC - Neurologic History Hx Cerebrovascular Accident: No Hx Seizures: Yes Hx Dementia: No - Endocrine History Hx Diabetes: No - Renal History Hx Renal Disorders: No - Liver History Hx Hepatic Disorders: No - Neurological & Psychiatric Hx Hx Neurological and Psychiatric Disorders: Yes - Cancer History Hx Cancer: No - Congenital Disorder History Hx Congenital Disorders: No - GI History Hx Gastrointestinal Disorders: No - Chronic Pain History Chronic Pain: Yes (NEUROPATHY ANGELICA FEET) ANE Review of Systems - Exercise capacity METS (RN): 4 METS - Systems Constitutional: Reports: no symptoms Cardiac: Reports: no symptoms Respiratory: Reports: no symptoms ANE Patient History - Allergies Allergies/Adverse Reactions: coconut Allergy (Severe, Uncoded 05/25/16 14:09) - Home Medications Home Medications: ARIPiprazole [Abilify 5 mg (*)] 04/13/16 [Last Taken 08/18/16] Prazosin HCl [Minipress 1mg (*)] 04/13/16 [Last Taken 08/17/16] buPROPion XL [Wellbutrin 150mg XL] 04/13/16 [Last Taken 08/18/16] traZODone [traZODone 150MG (*)] 04/13/16 [Last Taken 08/17/16] FLUoxetine [Prozac 20 MG (*)] 04/27/16 [Last Taken 08/18/16] Allopurinol 05/25/16 [Last Taken 08/18/16] Albuterol [Ventolin Hfa Inhaler] 08/07/16 [Last Taken 08/14/16] Gabapentin [Neurontin 300 MG (*)] 08/07/16 [Last Taken 08/18/16] lamoTRIgine [LamICTAL 100 MG (*)] 08/07/16 [Last Taken 08/18/16] - NPO status NPO Since - Liquids (Date): 08/19/16 NPO Since - Liquids (Time): 01:00 NPO Since - Solids (Date): 08/18/16 NPO Since - Solids (Time): 09:00 - Smoking Hx Smoking Status: Heavy smoker - Family Anes Hx Family Hx Anesthesia Complications: NEG ANE Labs/Vital Signs - Vital Signs Blood Pressure: 117/77 Heart Rate: 75 Respiratory Rate: 16 O2 Sat (%): 94 Height: 185.42 cm Weight: 102.058 kg ANE Physical Exam - Airway Neck exam: FROM Mallampati Score: Class 2 Mouth exam: dentures - Pulmonary Pulmonary: rhonchi - Cardiovascular Cardiovascular: regular rate and rhythym - ASA Status ASA Status: III ANE Anesthesia Plan Anesthesia Plan: GA with mask
[2016-08-19] MEDS ORDERED: fentaNYL 100 MCG/2 ML INJ ONE (12:15)
[2016-08-19] MEDS ORDERED: DEXAMETHASONE 4 MG/ML VIAL ONE (12:16)
[2016-08-19] MEDS ORDERED: PROPOFOL/EMULSION 500 MG/50 ML BOTTLE IV ONE (12:16)
[2016-08-19] MEDS ORDERED: LIDOCAINE 2% 5 ML SDV ONE (12:16)
--- NOTE | 2016-08-19 12:20 | PDGENHP ---
History & Physical Chief Complaint: screening fhx father age > 80 History of Present Illness: cc screen, fhx but at old age, father age > 80 Pertinent Past, Social, Family History: fhx - father with cc at age 80. +tob half pack p/er day. no alcohol 2 years Relevant Physical Exam: rare rhonchi, no rales, occ wheeze, S1S2, RRR. +BS, soft nt Cardiorespiratory Assessment: rare rhochi, occ wheeze o/w nml. class three
[2016-08-19] MEDS ORDERED: PROPOFOL 200 MG/20 ML VIAL ONE (12:46)
[2016-08-19] MEDS ORDERED: NALOXONE HCL 0.4 MG/ML INJ IVP PRN (12:56)
[2016-08-19] MEDS ORDERED: ALBUTEROL 3 ML DEYVIAL IH PRN (12:56)
[2016-08-19] MEDS ORDERED: ONDANSETRON 4 MG/2 ML VIAL IVP PRN (12:56)
--- NOTE | 2016-08-19 13:05 | POSTOPPROG ---
Post Op Note Date of Operation: 08/19/16 Surgeon: Skyler Nino Anesthesiologist: Ramos Anesthesia: Other (Specify) (TIVA IV general) Pre-op Diagnosis: screening Post-op Diagnosis: 3 polyps Indication: screening Procedure: Colon with bx and snare Findings: rectal polyp 6mm, distal transverse polyp , prox transvers polyp bx removal Inf/Abcess present in the surg proc area at time of surgery?: No EBL: Minimal (few ml) Total fluids administered: 250 cc Complications: none immediate
[2016-08-19 13:13] VITALS: TEMP 99
[2016-08-19 13:21] VITALS: O2SAT 92
[2016-08-19 13:34] VITALS: BP 114/80; RESP 13
[2016-08-19 13:35] VITALS: PULSE 67
--- NOTE | 2016-08-19 13:47 | POSTANESTH ---
Post Anesthetic Evaluation Cardiovascular Status: Normal, Stable Respiratory Status: Normal, Stable Level of Consciousness/Mental Status: Can Participate in Eval, Mildly Sleepy, Arousable Pain Control: Adequate, Prn Tx Ordered Nausea/Vomiting Control: Adequate, Prn Tx Ordered
--- NOTE | 2016-08-19 23:37 | GPN ---
[f rep st] PROCEDURE NOTE DATE OF PROCEDURE: 08/19/2016 PROCEDURES: Colonoscopy, biopsy, and snare. INDICATIONS: Screening with a family history of colon cancer in his father, age over 80. PREOPERATIVE DIAGNOSIS: Rule out polyps. POSTOPERATIVE DIAGNOSES: 1. A 2-3 mm proximal transverse colon polyp removed in total by cold biopsy piecemeal fashion. 2. A 6-7 mm distal descending colon polyp removed in total by cold snare but tissue not retrieved. 3. A 6-7 mm rectal polyp removed in total by cold snare, tissue retrieved. INFORMED CONSENT: I did discuss with the patient regarding the procedure, alternatives, benefits, a nd risks, including bleeding, perforation, infection, risk of medication. Informed consent was sign ed and witnessed. COMPLICATIONS: None immediate. MEDICATIONS USED: Total IV anesthesia/IV general as per Dr. Bejarano. DESCRIPTION OF PROCEDURE: After adequate sedation, patient remained in left lateral decubitus posit ion, and I performed a visual and digital anorectal examination. I then inserted the forward viewin g colonoscope via the rectum and advanced it to the terminal ilium. I identified the cecum by the i leocecal valve, confluence of the taeniae, and the appendiceal orifice. I performed a retroflex exa mination in the cecum. Upon withdrawal of the instrument, careful attention was paid to mucosal det ail. There was a 3 mm polyp in the proximal transverse colon that was removed in total by cold biop sy in piecemeal fashion. There was an additional 6-7 mm polyp in the distal transverse colon, remov ed in total by cold snare. However, this was not retrieved. It is not clear if it got sucked into the tubing or was hidden behind a fold. We went back up at the end of the exam to try to find it an d were not able to locate it. There was an additional 5-6 mm polyp in the rectum that was semi sess ile, removed in total by cold snare and retrieved. Retroflex examination was performed in the rectu m. The endoscope was un-retroflexed and advanced back up into the transverse colon, where I tried t o locate the previous polyp, which I did not. I removed air from the proximal transverse colon thro ughout the end of the distal colon and then withdrew the instrument confirming the above findings. The patient tolerated the procedure well and was transferred to recovery in satisfactory condition. IMPRESSION: 1. A 3 mm proximal transverse colon polyp. 2. A 6-7 mm distal transverse colon polyp, removed by snare but not retrieved. 3. A 5-6 mm rectal polyp, removed by snare but not repeat. RECOMMENDATIONS: 1. Follow up pathology. 2. If all the polyps are adenomatous, I would recommend repeat colonoscopy in 3 years. If any of t he polyps are not adenomatous, i.e. with no cancer potential, then the interval will be 5 years. 3. Except as used as cardiac prevention, try to avoid aspirin and anti-inflammatory drugs. 4. High-fiber high-fluid diet. 5. Discharge when stable with escort. 6. Follow up with primary care physician as scheduled. Thank you for allowing me to participate in this patient's healthcare. Do not hesitate to call me w ith any question. /[id number]/MODL
== END 2016-08-19 13:55 | disposition home or self-care (01) ==
LOC: FSGY 10:21
PROVIDERS: ATTEND Internal Medicine Gastroenterology
DX: Z12.11 Encounter for screening for malignant neoplasm of colon (principal); D12.3 Benign neoplasm of transverse colon; K62.1 Rectal polyp; Z80.0 Family history of malignant neoplasm of digestive organs
CPT/HCPCS: J1100; J2704; J3010

== ENCOUNTER 2018-05-31 16:59 | Inpatient (IN) | payer MEDICAID ==
[2018-05-31 17:25] LABS: PLATELET COUNT 199 10^3/uL (150-400)
--- NOTE | 2018-05-31 17:45 | EDPHY ---
H & P Stated Complaint: Increasing SOB x1wk, 80% RA per EMS Time Seen by Provider: 05/31/18 17:07 HPI/ROS: CHIEF COMPLAINT: Shortness of breath HISTORY OF PRESENT ILLNESS: 52-year-old male presents with shortness of breath. Onset of a productive cough 1 week ago. Associated gradually increasing shortness of breath. Now short of breath at rest and worsens with any exertion. Albuterol neb and Solu-Medrol 125 mg IV given by EMS, feels somewhat better now. No fever or other URI symptoms. No chest pain. History of pneumonia. No prior cardiac disease. REVIEW OF SYSTEMS: complete 10 point ROS reviewed and is negative except for the noted elements in the HPI Source: Patient - Personal History Current Tetanus/Diphtheria Vaccine: Yes Tetanus Vaccine Date: 06/20/12 - Medical/Surgical History Hx Asthma: No Hx Chronic Respiratory Disease: No Hx Diabetes: No Hx Cardiac Disease: No Hx Renal Disease: No Hx Cirrhosis: No Hx Alcoholism: Yes Hx HIV/AIDS: No Hx Splenectomy or Spleen Trauma: No Other PMH: HTN, SZ DISORDER, Gout, peripheral neuropathy,. ETOH ABUSE, PTSD - Social History Smoking Status: Heavy smoker Alcohol Use: Sober Drug Use: None - Physical Exam Exam: General Appearance: Alert, pleasant, speaks in full sentences Eyes: Pupils equal and round, no conjunctival pallor or injection ENT, Mouth: Mucous membranes moist Neck: Normal inspection Respiratory: tachypnea, decreased air exchange, diffuse expiratory wheezing Cardiovascular: Regular rate and rhythm Gastrointestinal: Abdomen is soft and nontender Neurological: A&O, nonfocal exam Skin: Warm and dry, no rash Extremities: Nontender, no pedal edema Psychiatric: Mood and affect normal Constitutional: Initial Vital Signs Temperature (C) 36.7 C 05/31/18 17:08 Heart Rate 87 05/31/18 17:08 Respiratory Rate 22 H 05/31/18 17:08 Blood Pressure 112/71 05/31/18 17:08 O2 Sat (%) 93 05/31/18 17:08 O2 Delivery Mode Oxymizer O2 (L/minute) 10 Allergies/Adverse Reactions: coconut Allergy (Severe, Uncoded 05/31/18 19:49) Home Medications: Medication Instructions Recorded ARIPiprazole [Abilify 5 mg (*)] 5 mg PO DAILY 04/13/16 Prazosin HCl [Minipress 1mg (*)] 3 mg PO HS 04/13/16 buPROPion XL [Wellbutrin 150mg XL] 150 mg PO DAILY 04/13/16 FLUoxetine [Prozac 20 MG (*)] 20 mg PO DAILY 04/27/16 Albuterol [Ventolin Hfa Inhaler] 2 puffs IH Q6H PRN 08/07/16 Gabapentin [Neurontin 300 MG (*)] 900 mg PO BID 08/07/16 lamoTRIgine [LamICTAL 100 MG (*)] 100 mg PO BID 08/07/16 Allopurinol [Allopurinol 300 MG 300 mg PO DAILY 05/31/18 (RX)] Fluticasone/Salmeter 500/50Mcg 1 puffs IH BID 05/31/18 [Advair 500/50 (*)] traZODone [traZODONE 100MG (*)] 300 mg PO HS 05/31/18 Medical Decision Making - Diagnostics EKG Interpretation: EKG interpreted by me reveals NSR, rate 87, RAD, early repolarization. Interpretation: abnormal EKG Imaging Results: CXR: patchy rt sided infiltrates Imaging: I viewed and interpreted images myself ED Course/Re-evaluation: Assessment: acute resp failure, bronchospasm, c/w COPD exacerbation and pneumonia. Duoneb, followed by Albuterol nebs given. Placed on oximask, gradually increased to 12 liters to maintain O2 sat 90%. Meets SIRS criteria, lactate normal. IV NS given. CXR reveals right sided infiltrate c/w pneumonia. Bld cx's drawn and Rocephin/Zithromax given. ddimer slightly elevated; pneumonia much more likely than PE, will not pursue CTA for now. Pt felt better after nebs. Pt's respiratory status slightly improved during ED obs, still requiring high O2. The hospitalist service was consulted for admission. Will admit to step down unit for close observation. This pt utilized 35 minlutes of critical care time exclusive of unbundled procedures. Time spent in serial assessments, lab/Xray/medication decision- making and ordering, study interpretation, time spent with consultants. Differential Diagnosis: includes though not limited to ACS, PE, pulm edema, empyema, dysrhythmia - Data Points Laboratory Results: Laboratory Results 05/31/18 17:10 05/31/18 17:10 Medications Given: Albuterol/Ipratropium (Duoneb) 3 ml IH Q6HRS IONA Stop: 11/28/18 00:00 Last Admin: 06/01/18 10:57 Dose: 3 ml Allopurinol (Allopurinol) 300 mg PO DAILY IONA Stop: 11/28/18 08:59 Last Admin: 06/01/18 08:34 Dose: 300 mg Aripiprazole (Abilify) 5 mg PO DAILY IONA Stop: 11/28/18 08:59 Last Admin: 06/01/18 08:33 Dose: 5 mg Bupropion HCl (Wellbutrin Xl) 150 mg PO DAILY IONA Stop: 11/28/18 08:59 Last Admin: 06/01/18 08:34 Dose: 150 mg Chlordiazepoxide HCl (Librium) 25 mg PO TID IONA Stop: 11/28/18 11:59 Last Admin: 06/01/18 12:19 Dose: 25 mg Fluoxetine HCl (Prozac) 20 mg PO DAILY IONA Stop: 11/28/18 08:59 Last Admin: 06/01/18 08:34 Dose: 20 mg Gabapentin (Neurontin) 900 mg PO BID IONA Stop: 11/27/18 20:59 Last Admin: 06/01/18 08:34 Dose: 900 mg Sodium Chloride (Ns) 1,000 mls @ 100 mls/hr IV CONT IONA Stop: 06/02/18 05:29 Last Admin: 05/31/18 22:08 Dose: 1,000 mls Thiamine HCl 500 mg/ Sodium (Chloride) 105 mls @ 210 mls/hr IV Q24H IONA Stop: 06/02/18 21:29 Last Admin: 05/31/18 22:07 Dose: 105 mls Lamotrigine (Lamictal) 100 mg PO BID IONA Stop: 11/27/18 20:59 Last Admin: 06/01/18 08:34 Dose: 100 mg Lorazepam (Ativan Injection) 0 mg IVP Q1H PRN; Protocol PRN Reason: Alcohol Withdrawal w/IV access Stop: 11/27/18 19:57 Last Admin: 06/01/18 12:28 Dose: 2 mg Nicotine (Nicoderm Cq) 21 mg TD DAILY IONA Stop: 11/28/18 08:59 Last Admin: 06/01/18 08:31 Dose: 21 mg Prednisone (Prednisone) 40 mg PO DAILY IONA Stop: 11/28/18 08:59 Last Admin: 06/01/18 08:33 Dose: 40 mg Fluticasone/Salmeterol (Advair) 1 puffs IH BID IONA Stop: 11/27/18 20:59 Last Admin: 06/01/18 10:57 Dose: 1 puffs Trazodone HCl (Trazodone) 300 mg PO HS IONA Stop: 11/27/18 20:59 Last Admin: 05/31/18 22:07 Dose: 300 mg Discontinued Medications Albuterol (Proventil Neb) 3 ml IH EDNOW ONE Stop: 05/31/18 20:16 Last Admin: 05/31/18 20:48 Dose: 3 ml Azithromycin (Zithromax) 500 mg PO EDNOW ONE PRN Reason: Protocol Stop: 05/31/18 18:33 Last Admin: 05/31/18 18:51 Dose: 500 mg Azithromycin (Zithromax) 500 mg PO DAILY IONA PRN Reason: Protocol Stop: 07/01/18 08:59 Last Admin: 06/01/18 08:34 Dose: 500 mg Ceftriaxone Sodium/Dextrose (Rocephin 1 Gm (Premix)) 50 mls @ 100 mls/hr IV EDNOW ONE PRN Reason: Protocol Stop: 05/31/18 19:01 Last Admin: 05/31/18 18:52 Dose: 50 mls Methylprednisolone Sodium Succinate (Solu-Medrol) 60 mg IVP Q6HRS IONA Stop: 06/01/18 00:01 Last Admin: 06/01/18 00:41 Dose: Not Given Point of Care Test Results: Chemistry 05/31/18 17:30 POC Troponin I 0.00 ng/mL ng/mL (0.00-0.08) Departure - Departure Disposition: [facility] Acute Clinical Impression: Chronic obstructive pulmonary disease with acute exacerbation Pneumonia Qualifiers: Pneumonia type: due to unspecified organism Laterality: left Lung location: upper lobe of lung Qualified Code(s): J18.1 - Lobar pneumonia, unspecified organism Condition: Serious
[2018-05-31] MEDS ORDERED: AZITHROMYCIN 250 MG TAB PO ONE (18:32)
[2018-05-31] MEDS ORDERED: ACETAMINOPHEN 325 MG TAB PO PRN (19:24)
[2018-05-31] MEDS ORDERED: ONDANSETRON 4 MG/2 ML VIAL IVP PRN (19:24)
[2018-05-31] MEDS ORDERED: ONDANSETRON DISINTEGRATING 4 MG TAB PO PRN (19:24)
[2018-05-31] MEDS ORDERED: NS 1,000 ML IV SCH (19:30)
--- NOTE | 2018-05-31 19:34 | PDGENHP ---
History and Physical - Chief Complaint Shortness of breath - History of Present Illness This is a 52 y/o male w/hx of PNA, COPD presenting w/ 1 week worth of progressive shortness of breath and a wet sounding cough but unable to produce any sputum. He now feels short of breath at rest and it worsens w/exertion. He received albuterol neb tx and solu-medrol 125 mg by EMS in route to ED and reports feeling mildly better. Endorses decreased appetite, poor PO intake, mild nausea. Denies fevers, chills, CP, diarrhea, constipation, vomiting. CXR demonstrate patchy right lung opacities that could be r/t asymmetric pulmonary edema or PNA as well as an increased linear left basilar atelectasis. He is being admitted for further testing and monitoring. History Information - Allergies/Home Medication List Allergies/Adverse Reactions: coconut Allergy (Severe, Uncoded 05/31/18 19:49) Home Medications: ARIPiprazole [Abilify 5 mg (*)] 5 mg PO DAILY 04/13/16 [Last Taken 05/31/18 09: 00] Prazosin HCl [Minipress 1mg (*)] 3 mg PO HS 04/13/16 [Last Taken 05/30/18 21:00] buPROPion XL [Wellbutrin 150mg XL] 150 mg PO DAILY 04/13/16 [Last Taken 09:00] FLUoxetine [Prozac 20 MG (*)] 20 mg PO DAILY 04/27/16 [Last Taken 05/31/18 09:00 ] Albuterol [Ventolin Hfa Inhaler] 2 puffs IH Q6H PRN 08/07/16 [Last Taken ] Gabapentin [Neurontin 300 MG (*)] 900 mg PO BID 08/07/16 [Last Taken 05/31/18 09 :00] lamoTRIgine [LamICTAL 100 MG (*)] 100 mg PO BID 08/07/16 [Last Taken 05/31/18 09 :00] Allopurinol [Allopurinol 300 MG (RX)] 300 mg PO DAILY 05/31/18 [Last Taken 05/31 09:00] Fluticasone/Salmeter 500/50Mcg [Advair 500/50 (*)] 1 puffs IH BID 05/31/18 [ Last Taken 05/31/18 09:00] traZODone [traZODONE 100MG (*)] 300 mg PO HS 05/31/18 [Last Taken 05/30/18 21:00 ] I have personally reviewed and updated: family history, medical history, social history, surgical history - Past Medical History COPD, hyperlipidemia, psychiatric history Additional medical history: Seizures thought to be caused from past ETOH abuse - Surgical History Reports: appendectomy - Family History Additional family history: Heart disease and COPD - Social History Smoking Status: Heavy smoker Alcohol Use: Rarely (No longer drinks heavily. Reports 6 drinks/week) Drug Use: None Additional social history: Lives off social security. [facility] and [place]. Review of Systems Review of Systems: ROS: 10pt was reviewed & negative except for what was stated in HPI & below Physical Exam Physical Exam: Lab data and imaging were reviewed. Temp Pulse Resp BP Pulse Ox 36.7 C 77 16 102/61 90 L 05/31/18 17:08 05/31/18 18:00 05/31/18 18:00 05/31/18 18:00 05/31/18 18:00 Constitutional: no apparent distress, appears nourished, not in pain Eyes: PERRL, anicteric sclera, EOMI Ears, Nose, Mouth, Throat: hearing normal, ears appear normal, no oral mucosal ulcers, dry mucous membranes Cardiovascular: regular rate and rhythym, no murmur, rub, or gallop, No edema Peripheral Pulses: 2+: dorsalis-pedis (R), dorsalis-pedis (L) Respiratory: expiratory wheeze, inspiratory crackles, rhonchi Gastrointestinal: normoactive bowel sounds, soft, non-tender abdomen, no palpable masses Genitourinary: no bladder fullness, no bladder tenderness Skin: warm, normal color, no rashes or abrasions, no fluctuance, no induration, No mottled Musculoskeletal: full muscle strength, no muscle tenderness, normal joint ROM, no joint effusions Neurologic: AAOx3, sensation intact bilaterally, CN II-XII Intact Psychiatric: interacting appropriately, not anxious, not encephalopathic, thought process linear Lymph, Heme, Immunologic: no cervical LAD, no supraclavicular LAD Lab Data & Imaging Review 05/31/18 17:10 05/31/18 17:10 WBC 8.15 10^3/uL (3.80-9.50) 05/31/18 17:10 RBC 4.51 10^6/uL (4.40-6.38) 05/31/18 17:10 Hgb 13.6 g/dL (13.7-17.5) L 05/31/18 17:10 Hct 41.8 % (40.0-51.0) 05/31/18 17:10 MCV 92.7 fL (81.5-99.8) 05/31/18 17:10 MCH 30.2 pg (27.9-34.1) 05/31/18 17:10 MCHC 32.5 g/dL (32.4-36.7) 05/31/18 17:10 RDW 15.0 % (11.5-15.2) 05/31/18 17:10 Plt Count 199 10^3/uL (150-400) 05/31/18 17:10 MPV 8.7 fL (8.7-11.7) 05/31/18 17:10 Neut % (Auto) 75.4 % (39.3-74.2) H 05/31/18 17:10 Lymph % (Auto) 13.7 % (15.0-45.0) L 05/31/18 17:10 [place]row % (Auto) 10.1 % (4.5-13.0) 05/31/18 17:10 Eos % (Auto) 0.0 % (0.6-7.6) L 05/31/18 17:10 Baso % (Auto) 0.4 % (0.3-1.7) 05/31/18 17:10 Nucleat RBC Rel Count 0.0 % (0.0-0.2) 05/31/18 17:10 Absolute Neuts (auto) 6.15 10^3/uL (1.70-6.50) 05/31/18 17:10 Absolute Lymphs (auto) 1.12 10^3/uL (1.00-3.00) 05/31/18 17:10 Absolute Monos (auto) 0.82 10^3/uL (0.30-0.80) H 05/31/18 17:10 Absolute Eos (auto) 0.00 10^3/uL (0.03-0.40) L 05/31/18 17:10 Absolute Basos (auto) 0.03 10^3/uL (0.02-0.10) 05/31/18 17:10 Absolute Nucleated RBC 0.00 10^3/uL (0-0.01) 05/31/18 17:10 Immature Gran % 0.4 % (0.0-1.1) 05/31/18 17:10 Immature Gran # 0.03 10^3/uL (0.00-0.10) 05/31/18 17:10 D-Dimer 0.86 ug/mLFEU (0.00-0.50) H 05/31/18 17:10 VBG Lactic Acid 0.9 mmol/L (0.7-2.1) 05/31/18 18:40 Sodium 134 mEq/L (135-145) L 05/31/18 17:10 Potassium 4.4 mEq/L (3.5-5.2) 05/31/18 17:10 Chloride 91 mEq/L (97-110) L 05/31/18 17:10 Carbon Dioxide 27 mEq/l (22-31) 05/31/18 17:10 Anion Gap 16 mEq/L (6-14) H 05/31/18 17:10 BUN 14 mg/dL (7-23) 05/31/18 17:10 Creatinine 1.3 mg/dL (0.7-1.3) 05/31/18 17:10 Estimated GFR 58 05/31/18 17:10 Glucose 91 mg/dL (70-100) 05/31/18 17:10 Calcium 8.9 mg/dL (8.5-10.4) 05/31/18 17:10 POC Troponin I 0.00 ng/mL (0.00-0.08) 05/31/18 17:30 NT-Pro-B Natriuret Pep 134 pg/mL (0-125) H 05/31/18 17:10 Assessment & Plan Plan: 52 y/o male w/previous hx of PNA back in 2017 admitted here presents w/similar symptoms of progressive shortness of breath and hypoxemia. Subsequently, imaging reveals possible infiltrate. Apparently, w/EMS his oxygen saturation was 80%RA. Last set of vitals are the following: BP 102/61, HR 77, Resp 16, 36.7, 90% 10L oxy. During my evaluation w/the pt, I turned down his oxygen to 5 -6L and he was still saturating around 89-91% while having a conversation w/me in no respiratory distress or unable to complete sentences. I do acknowledge his elevated d-dimer of 0.86 however my suspicion of pulmonary embolism is low considering his clinical presentation; he is not tachy, no [id number] or RBBB on EKG. #COPD exacerbation w/suspected superimposed pneumonia -Duoneb tx -Solu-medrol one time IVP, then Prednisone PO in AM -Cont pulse ox monitoring -Received ceftriaxone + azithromycin in ED; cont in AM -IS -Resp panel pending -Blood cultures pending -IVF x 2 bags #Acute hypoxemic respiratory failure: see above #Tobacco cessation: Educated pt on benefits of reducing and/or quitting using tobacco. He reports he tried to vape but "hand to mouth, just isn't the same." -Nicoderm patch in AM #Psychiatric disorder -Depression/anxiety/PTSD/SZ disorder. He is evaluated on a weekly basis at behavioral health however I am uncertain if this is at [facility] behavioral health or another facility closer to his living quarters. Cont home medications. #Seizures: Thought to be ETOH abuse provoked. He reports lessening the amount of etoh to 6 drinks/week. Cont Lamictal and CIWA scale for safe measures. Diet: Regular Code: DNR VTE ppx: SCDs Dispo: Admit to inpatient
[2018-05-31] MEDS ORDERED: FLUMAZENIL 0.5 MG/5 ML MDV IVP PRN (19:58)
[2018-05-31] MEDS ORDERED: ALBUTEROL 3 ML DEYVIAL IH ONE (20:15)
--- NOTE | 2018-05-31 20:31 | HOSPPROG ---
Hospitalist Progress Note Assessment/Plan: I have personally seen and evaluated Mr. Lima. I agree with the assessment and plan as outline by [employer] SERV[employer] CAPTAIN, Francisca Hensley, in a separate note. Objective: Vital Signs Temp Pulse Resp BP Pulse Ox 36.7 C 77 16 126/66 H 89 L 05/31/18 17:08 05/31/18 20:00 05/31/18 20:00 05/31/18 20:00 05/31/18 20:00 ICD10 Worksheet Patient Problems: Problems Problem Status Onset Acute renal failure Acute Pneumonia Acute Severe sepsis Acute Subarachnoid hemorrhage Acute
[2018-05-31] MEDS ORDERED: traZODone 100 MG TAB PO SCH (21:00)
--- NOTE | 2018-05-31 21:14 | CPEKG ---
Test Reason : OPEN Blood Pressure : / mmHG Vent. Rate : 087 BPM Atrial Rate : 087 BPM P-R Int : 173 ms QRS Dur : 096 ms QT Int : 375 ms P-R-T Axes : 036 132 035 degrees QTc Int : 451 ms Sinus rhythm Right axis deviation ST elev, probable normal early repol pattern Confirmed by Esthela Meza ([id number]) on 05/31/2018 9:14:03 PM Referred By: Esthela Meza Confirmed By:Esthela Meza
[2018-05-31] MEDS: IPRATROPIUM/ALBUTEROL 3 ML DEYVIAL IH SCH (21:58)
[2018-05-31] MEDS: GABAPENTIN 300 MG CAP PO SCH (22:07)
[2018-05-31] MEDS: lamoTRIgine 100 MG TAB PO SCH (22:07)
[2018-05-31] MEDS: THIAMINE HCL 500 MG in NS 100 ML IV SCH (22:07)
[2018-05-31] MEDS: LORazepam 2 MG/ML INJ IVP PRN (22:08)
[2018-05-31] MEDS: FLUTICASONE/SALMETER 500/50MCG DISKUS IH SCH (22:29)
[2018-06-01] MEDS ORDERED: methylPREDNISolone SOD SUCC 125 MG/2 ML VIAL IVP SCH
[2018-06-01] MEDS: LORazepam 2 MG/ML INJ IVP PRN ×9 (01:34→23:45)
[2018-06-01 04:31] LABS: PLATELET COUNT 169 10^3/uL (150-400)
[2018-06-01] MEDS: IPRATROPIUM/ALBUTEROL 3 ML DEYVIAL IH SCH ×4 (05:25→22:34)
[2018-06-01] MEDS: NICOTINE 21 MG/24 HR PATCH TD SCH (08:31)
[2018-06-01] MEDS: ARIPiprazole 5 MG TAB PO SCH (08:33)
[2018-06-01] MEDS: predniSONE 20 MG TAB PO SCH (08:33)
[2018-06-01] MEDS: GABAPENTIN 300 MG CAP PO SCH ×2 (08:34→20:03)
[2018-06-01] MEDS: buPROPion XL 150 MG TAB PO SCH (08:34)
[2018-06-01] MEDS: lamoTRIgine 100 MG TAB PO SCH ×2 (08:34→20:03)
[2018-06-01] MEDS: FLUoxetine 20 MG CAP PO SCH (08:34)
[2018-06-01] MEDS: ALLOPURINOL 300 MG TAB PO SCH (08:34)
[2018-06-01] MEDS ORDERED: AZITHROMYCIN 250 MG TAB PO SCH (09:00)
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
--- NOTE | 2018-06-01 10:43 | PDMN ---
Medical Necessity Medical necessity: Pt meets IP criteria per [facility] & MCG M-100; est los >2 mn for eval/tx of COPD exacerbation w/suspected pneumonia & acute hypoxemic respiratory failure (requiring 12L O2 to maintain sats >90%); admit for close monitoring, respiratory supportive care & IV abx; per H&P & order 05/31/18
[2018-06-01] MEDS: FLUTICASONE/SALMETER 500/50MCG DISKUS IH SCH ×2 (10:57→22:34)
--- NOTE | 2018-06-01 11:35 | HOSPPROG ---
Hospitalist Progress Note Assessment/Plan: 52 yo male with hx of restrictive lung disease and tobacco use admitted with acute hypoxic respiratory failure found to have a Parainfluenza pneumonia #Parainfluenza pneumonia -Right sided infiltrates -No leukocytosis present on admission -initially treated with Rocephin and Azithromycin. Rocephin stop today, cont Azithromycin #tobacco abuse disorder -NRT #RAD with exacerbation. -outpatient PFT's show restrictive pattern -cont scheduled duonebs -cont Prednisone scheduled #Acute Hypoxic respiratory failure due to above -O2 needs are decreasing #Depression/anxiety/PTSD/SZ disorder: Cont home medications. #Acute ETOH WD -High risk for severe WD. Cont CIWA: Ativan. Tolerating PO, will start Librium. He reports last drink was 4 days from admission, but appears to be in WD. #Hx of Seizures: Thought to be ETOH abuse provoked. He reports lessening the amount of etoh to 6 drinks/week. #Encephalopathy: likely from Withdrawal, metabolic Diet: Regular Code: DNR VTE ppx: SCDs Dispo: cont inpatient Subjective: reports that overall his resp status is improving. He is confused Objective: Vital Signs Temp Pulse Resp BP Pulse Ox 36.4 C 76 24 H 117/74 93 06/01/18 08:00 06/01/18 10:58 06/01/18 10:58 06/01/18 08:00 06/01/18 10:58 Microbiology 05/31/18 19:37 Respiratory Panel (PCR) - Final Nasal, Sinus - Swab Parainfluenza Virus Type 3 Laboratory Results 06/01/18 04:20 06/01/18 04:20 05/31/18 06/01/18 06/02/18 05:59 05:59 05:59 Intake Total 1170 Output Total 350 Balance 820 - Physical Exam Constitutional: no apparent distress Eyes: PERRL, EOMI Ears, Nose, Mouth, Throat: moist mucous membranes, hearing normal Cardiovascular: regular rate and rhythym, No edema Respiratory: no respiratory distress, reduced air movement, expiratory wheeze Gastrointestinal: normoactive bowel sounds, soft, non-tender abdomen Skin: warm Neurologic: No AAOx3 Psychiatric: encephalopathic Lymph, Heme, Immunologic: No petechiae ICD10 Worksheet Patient Problems: Problems Problem Status Onset Acute renal failure Acute Pneumonia Acute Severe sepsis Acute Subarachnoid hemorrhage Acute
--- NOTE | 2018-06-01 11:52 | WOCRNPDOC ---
NASEEM Advanced Assessment Note - Skin Integrity Problem, Advanced Assess Gluteal Cleft Dressing Type: Open to Air Integumentary Issue Intervention: Barrier Cream Applied Monik Wound Tissue: Blanching, Erythema Wound Bed Color: [place], Purple, Red Site Measurement - Head-to-Toe Length X Width X Depth (cm): 7.5x4.5x0.1 full area; R cleft 5x0.6x0.1; L cleft 5x0.5x0.1 Skin Integrity Problem Comment: Patient with redness to gluteal cleft bilaterally. Barrier cream removed with wipes to reveal reddened crease in gluteal cleft extending from coccyx to rectum indicative of intertriginious dermatitis. Lateral edges of the fleshy aspect of the gluteal cleft wound non blanching with open tissue but with no pressure injury present. Medial aspect of wound in the crease reddened but blanching. Will recommend MAD cream application. Blanca WEEKS aware. Wound will sign off.
[2018-06-01] MEDS: chlordiazePOXIDE 25 MG CAP PO SCH ×3 (12:19→20:05)
--- NOTE | 2018-06-01 15:25 | GCON ---
[f rep st] CONSULTATION PULMONARY CONSULTATION DATE OF CONSULTATION: 06/01/2018 HISTORY OF PRESENT ILLNESS: This patient is a 52-year-old male admitted yesterday with shortness of breath, a nonproductive cough and hypoxemia. He was thought to be having a COPD exacerbation. A [facility] x-ray showed infiltrate and he was treated with nebulizers and Solu-Medrol, eventual antibiotics. He also has a history of alcoholism, but says he has been sober for quite some time. Today, told me his last drink was about a week ago, but overnight became agitated, pulled out his IV and required t ransfer to step-down unit for Ativan and CIWA protocol. His ability to give me history today was yong ewhat impaired, but did confirm the symptoms that he had, but was mumbling and delirious at the time of my evaluation, as well as displaying significant tremor. REVIEW OF SYSTEMS: Otherwise negative. PAST MEDICAL HISTORY: 1. Includes a pneumonia event in 2017 requiring endotracheal intubation, chronic left hemidiaphragma tic paralysis and possible COPD, though his spirometry has been restrictive and he has been evaluated by Dr. Crowell. 2. Depression. 3. Gout. 4. Alcoholism. 5. Alcoholic seizure in the past. 6. PTSD. PAST SURGICAL HISTORY: Includes appendectomy. SOCIAL HISTORY: He is an ongoing smoker. FAMILY HISTORY: Includes coronary artery disease. CURRENT MEDICATIONS: Include Tylenol, DuoNeb, allopurinol, Abilify, Zithromax, Wellbutrin, Librium, Prozac, Neurontin, Lamictal, Ativan, Nicoderm, Zofran, prednisone, Advair, normal saline, thiamine. PHYSICAL EXAM: VITAL SIGNS: At the time of my evaluation his blood pressure is 117/74, heart rate o f 78, respiratory rate of 17, oxygen saturation 92% on 7 L oxy mask. GENERAL: He was awake and aler t and did answer some questions appropriately, but did mumble quite a bit. He was very tremulous and trying to eat his breakfast, nearly spilling a cup of orange juice all over himself. He is not terr ibly diaphoretic. HEENT: Otherwise, his pupils equally round and reactive to light. Nonicteric and noninjected. Mucous membranes moist without erythema or exudate. NECK: Supple without adenopathy or jugular vein distention. LUNGS: Breath sounds were clear to auscultation bilaterally without wheeze , rhonchi or rales. HEART: Regular rate and rhythm without murmurs, rubs, gallops. ABDOMEN: Obese , but soft, nontender, nondistended without hepatosplenomegaly. EXTREMITIES: Show no clubbing, cyan osis, or edema. OBJECTIVE DATA: Includes a white count of 8.1 when he arrived, 6.6 today, hematocrit 43, platelets 1 69. Basic metabolic panel is unremarkable. BNP was 134. Troponin was negative. ASSESSMENT/PLAN: 1. Hypoxemia with infiltrates, but no white count and no fever. 2. Pneumonia. Unlikely, I suppose it is possible. I think Zithromax is a reasonable drug with his possible chronic obstructive pulmonary disease history, but I would discontinue ceftriaxone at this p oint. In addition, I might taper his prednisone. 3. Mental status changes. This is consistent with alcohol withdrawal in my opinion and I would cont inue with the CITX protocol and watch him closely. I think the step-down unit is the appropriate sonia ce for him. 4. Diaphragmatic paralysis. This is an old, chronic problem and no further workup is indicated at t his time. /[id number]/MODL
--- NOTE | 2018-06-01 16:14 | ASMTCASEMG ---
Living Arrangements What is your living Answers: Alone arrangement? Who do you live with? Type Of Residence What kind of residence do Answers: Apartment you live in? Discharge Plan Comments Coordination Status Comments Notes: Patient is a 52yo single male with a previous hx of PNA in 2017, who presents with progressive shortness of breath and hypoxemia. He is being admitted inpatient for COPD exacerbation w/suspected superimposed pneumonia, acute hypoxemic respiratory failure, tobacco cessation, psychiatric disorder, seizures (thought to be ETOH abuse provoked). OT has been ordered. D/C plan TBD. CM will follow. Date Signed: 06/01/2018 04:13 PM Electronically Signed By:Gia Webb LCSW
[2018-06-01] MEDS: LIDO/ZINC OX/CLOTRIMAZOLE (MAD) 116 GM CREAM TP SCH (20:03)
[2018-06-01] MEDS: THIAMINE HCL 500 MG in NS 100 ML IV SCH (22:26)
[2018-06-02] MEDS: DEXMEDETOMIDINE HCL 400 MCG in NS 100 ML IV SCH ×3 (00:07→07:33)
[2018-06-02] MEDS: LORazepam 1 MG TAB PO SCH ×2 (01:44→06:06)
[2018-06-02] MEDS: IPRATROPIUM/ALBUTEROL 3 ML DEYVIAL IH SCH ×2 (05:35→10:33)
[2018-06-02] MEDS: LORazepam 2 MG/ML INJ IVP PRN ×2 (05:56→15:54)
[2018-06-02] MEDS ORDERED: ALBUTEROL 3 ML DEYVIAL IH PRN (06:19)
[2018-06-02] MEDS ORDERED: AZITHROMYCIN 250 MG TAB PO SCH (09:00)
[2018-06-02] MEDS: FLUoxetine 20 MG CAP PO SCH (09:27)
[2018-06-02] MEDS: chlordiazePOXIDE 25 MG CAP PO SCH (09:27)
[2018-06-02] MEDS: lamoTRIgine 100 MG TAB PO SCH ×2 (09:27→21:11)
[2018-06-02] MEDS: buPROPion XL 150 MG TAB PO SCH (09:27)
[2018-06-02] MEDS: ALLOPURINOL 300 MG TAB PO SCH (09:27)
[2018-06-02] MEDS: GABAPENTIN 300 MG CAP PO SCH (09:27)
[2018-06-02] MEDS: ARIPiprazole 5 MG TAB PO SCH (09:28)
[2018-06-02] MEDS: NICOTINE 21 MG/24 HR PATCH TD SCH (09:28)
[2018-06-02] MEDS: predniSONE 20 MG TAB PO SCH (09:28)
[2018-06-02] MEDS: LIDO/ZINC OX/CLOTRIMAZOLE (MAD) 116 GM CREAM TP SCH ×2 (10:09→21:12)
--- NOTE | 2018-06-02 10:24 | HOSPPROG ---
Hospitalist Progress Note Assessment/Plan: 52 yo male with hx of restrictive lung disease and tobacco use admitted with acute hypoxic respiratory failure found to have a Parainfluenza pneumonia #Parainfluenza pneumonia -Right sided infiltrates -No leukocytosis present on admission -initially treated with Rocephin and Azithromycin. Rocephin stopped 06/01. cont Azithromycin #tobacco abuse disorder -NRT #RAD with exacerbation. -outpatient PFT's show restrictive pattern -cont scheduled duonebs -cont Prednisone scheduled #Acute Hypoxic respiratory failure due to above -O2 needs are decreasing but appears to have increased work of breathing #Depression/anxiety/PTSD/SZ disorder: On Abilify, Lamictal, Wellbutrin, and Prozac at home #Acute ETOH WD #Hx of Seizures: Thought to be ETOH abuse provoked. He reports lessening the amount of etoh to 6 drinks/week. #Encephalopathy: multifactorial to include withdrawal, metabolic, possible CO2 retention Diet: Regular Code: DNR VTE ppx: SCDs, add Lovenox Plan: -ABG now. Pulm managing. May need ventilatory support. Change Steroids to IV. Cont Nebs -Change diet to NPO. Start IVF -Cont Precedex drip. Start IV scheduled Ativan. Stop PO scheduled. Cont CIWA -monitor neuro/psych status closely. He is on Abilify, Lamictal, Wellbutrin, and Prozac at home which he will likely need to skip doses if unable to take PO. total critical care time in this pt with acute ETOH WD is 35 mins. Subjective: increased work of breathing. Encephalopathy Objective: Vital Signs Temp Pulse Resp BP Pulse Ox 36.8 C 75 24 H 132/96 H 93 06/02/18 07:30 06/02/18 07:30 06/02/18 07:30 06/02/18 07:30 06/02/18 07:30 Microbiology 05/31/18 19:37 Respiratory Panel (PCR) - Final Nasal, Sinus - Swab Parainfluenza Virus Type 3 Laboratory Results 06/02/18 06:15 06/02/18 05:45 06/01/18 06/02/18 06/03/18 05:59 05:59 05:59 Intake Total 1170 881 Output Total 350 1320 Balance 820 -439 PT REJ 06/02/18 05:45 INR REJ 06/02/18 05:45 - Physical Exam Constitutional: no apparent distress Eyes: PERRL, EOMI Ears, Nose, Mouth, Throat: moist mucous membranes Cardiovascular: regular rate and rhythym, No edema Respiratory: reduced air movement, expiratory wheeze, respiratory distress ( increased work of breathing), rhonchi Gastrointestinal: normoactive bowel sounds, soft, non-tender abdomen Skin: warm Neurologic: No AAOx3 Psychiatric: encephalopathic Lymph, Heme, Immunologic: No petechiae ICD10 Worksheet Patient Problems: Problems Problem Status Onset Chronic obstructive pulmonary disease with acute exacerbation Acute Pneumonia Acute Acute renal failure Acute Severe sepsis Acute Subarachnoid hemorrhage Acute
[2018-06-02] MEDS: FLUTICASONE/SALMETER 500/50MCG DISKUS IH SCH (10:35)
[2018-06-02] MEDS: LORazepam 2 MG/ML INJ IVP SCH ×3 (11:13→18:16)
[2018-06-02] MEDS: NS W/ 20 KCl/L 1,000 ML IV SCH ×2 (12:34→20:43)
[2018-06-02] MEDS: DEXMEDETOMIDINE HCL 1,000 MCG in NS 250 ML IV SCH (12:37)
--- NOTE | 2018-06-02 15:46 | PDINTPN ---
Scabbler Progress Note Assessment/Plan: 52 M with known history of alcohol admitted 05/31 with sob and infiltrates on CXR in setting of possible COPD. He was treated with antibiotics and oxygen but became increasingly agitated and required a step up in level of care. He eventually became delirious enough to require a precedex drip. * ETOH wd- using CIWA with scheduled ativan and precedex drip. He is abit oversedated this am but his ABG was without CO2 retention. Continue CIWA * COPD- this is a provisional diagnosis at best as his spirometry was restrictive. Given the propensity for prednisone to effect mental status, steroids dc'd for now. * Elevated left diaphragm- idiopathic and chronic. Likely contributes to poor airway clearance. Subjective: started precedex drip overnight for increasing agitation Objective: Vital Signs Temp Pulse Resp BP Pulse Ox 36.8 C 73 27 H 152/101 H 93 06/02/18 07:30 06/02/18 11:54 06/02/18 11:54 06/02/18 11:54 06/02/18 11:54 Laboratory Results 06/02/18 06:15 06/02/18 05:45 06/01/18 06/02/18 06/03/18 05:59 05:59 05:59 Intake Total 1170 881 Output Total 350 1320 Balance 820 -439 PT REJ 06/02/18 05:45 INR REJ 06/02/18 05:45 Physical Exam - Physical Exam General Appearance: mild distress, obtunded, obese EENT: PERRL/EOMI Neck: supple Respiratory: accessory muscle use, decreased breath sounds, rhonchi, No wheezing , No prolonged expiration Cardiac/Chest: regular rate, rhythm, No edema Abdomen: normal bowel sounds, soft, No distended Skin: normal color, warm/dry, No cyanosis Lymphatic: no adenopathy Extremities: No pedal edema Neuro/Psych: cognition abnormalities, No abnormal ux researcher II-XII ICD10 Worksheet Patient Problems: Problems Problem Status Onset Chronic obstructive pulmonary disease with acute exacerbation Acute Pneumonia Acute Acute renal failure Acute Severe sepsis Acute Subarachnoid hemorrhage Acute
[2018-06-02] MEDS ORDERED: MIDAZOLAM 2 MG/2 ML VIAL ONE (16:40)
[2018-06-02] MEDS ORDERED: ETOMIDATE 40 MG/20 ML INJ IV ONE (16:45)
[2018-06-02] MEDS ORDERED: PROPOFOL/EMULSION 1,000 MG/100 ML BOTTLE IV ONE (16:56)
--- NOTE | 2018-06-02 17:09 | PDINTPN ---
Anesthesiologist Attending Progress Note Assessment/Plan: 52 M with known history of alcohol admitted 05/31 with sob and infiltrates on CXR in setting of possible COPD. He was treated with antibiotics and oxygen but became increasingly agitated and required a step up in level of care. He eventually became delirious enough to require a precedex drip. * acute respiratory failure with hypoxia and altered mental status- he is more somnolent this afternoon and not protecting his airway, and was therefore intubated without difficulty. abg and CXR are pending. * ETOH wd- using CIWA with scheduled ativan and precedex drip. * COPD- this is a provisional diagnosis at best as his spirometry was restrictive. Given the propensity for prednisone to effect mental status, steroids dc'd for now. * Elevated left diaphragm- idiopathic and chronic. Likely contributes to poor airway clearance. * * critical care time 35 minutes separate from procedures and separate from morning evaluation 06/02/18 17:06 Subjective: CTSP urgently due to worsening respiratory failure Objective: Vital Signs Temp Pulse Resp BP Pulse Ox 37 C 67 22 H 161/104 H 97 06/02/18 15:47 06/02/18 15:47 06/02/18 15:47 06/02/18 15:47 06/02/18 15:47 Laboratory Results 06/02/18 06:15 06/02/18 05:45 06/01/18 06/02/18 06/03/18 05:59 05:59 05:59 Intake Total 1170 881 Output Total 350 1320 Balance 820 -439 PT REJ 06/02/18 05:45 INR REJ 06/02/18 05:45 Physical Exam - Physical Exam General Appearance: moderate distress, obtunded, obese, other (diaphoretic) EENT: PERRL/EOMI Neck: supple Respiratory: rales, rhonchi, wheezing, No normal breath sounds, No stridor Cardiac/Chest: regular rate, rhythm, No edema Abdomen: soft, No distended, No guarding, No rebound, No rigid Skin: normal color, diaphoresis, No warm/dry, No cyanosis Lymphatic: no adenopathy Extremities: No pedal edema Neuro/Psych: cognition abnormalities, 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
[2018-06-02] MEDS: PROPOFOL/EMULSION 100 ML IV SCH ×2 (17:30→21:10)
--- NOTE | 2018-06-02 17:59 | GPN ---
[f rep st] PROCEDURE NOTE DATE OF PROCEDURE: 06/02/2018 PROCEDURE: Intubation. CONSENT: Consent was waived due to the emergent nature of the procedure. ANESTHESIA: Conscious sedation was achieved using a total of 40 mg etomidate, 2 mg IV Versed. The p atient tolerated these well without complications. DESCRIPTION OF PROCEDURE: Procedure using direct laryngoscopy with a 7.5 endotracheal tube, the 1st attempt appeared to go in with moderate visualization of the vocal cords. However, there was poor co ndensation in the ET tube and inadequate color change on capnography. This tube was medially removed . His oxygen saturation stayed above 90%. He underwent more bagging with an oral airway in place. Second attempt was with a GlideScope and direct visualization with ease of placement of the endotrach eal tube. There was good condensation, color change, and oxygen saturations were normal. The breath sounds were equal bilaterally without adventitious sounds in the mid epigastric region. A chest x-r ay is pending at this time for placement. /[id number]/MODL
[2018-06-02] MEDS ORDERED: MIDAZOLAM 2 MG/2 ML VIAL IVP ONE (18:45)
[2018-06-02] MEDS: ALBUTEROL 60 PUFFS/8 GM MDI IH SCH ×2 (20:52→23:01)
[2018-06-02] MEDS: THIAMINE HCL 500 MG in NS 100 ML IV SCH (21:09)
[2018-06-02] MEDS: CHLORHEXIDINE GLUCONATE 15 ML UDL PO SCH (21:10)
[2018-06-02] MEDS: FAMOTIDINE 20 MG/NACL 50 ML IV SCH (21:11)
[2018-06-03] MEDS: LORazepam 2 MG/ML INJ IVP SCH ×4 (00:41→18:08)
[2018-06-03] MEDS: PROPOFOL/EMULSION 100 ML IV SCH ×3 (01:52→13:14)
[2018-06-03] MEDS: ALBUTEROL 60 PUFFS/8 GM MDI IH SCH ×7 (03:47→23:21)
[2018-06-03 05:54] LABS: PLATELET COUNT 159 10^3/uL (150-400)
[2018-06-03] MEDS: NS 1,000 ML IV SCH ×2 (07:36→17:35)
[2018-06-03] MEDS ORDERED: PROTOCOL MAGNESIUM 1 DOSE IV PRN (07:59)
[2018-06-03] MEDS ORDERED: MAGNESIUM SULF 2 GM/WATER 50 ML IV ONE (08:12)
[2018-06-03] MEDS ORDERED: MAGNESIUM SULF 1 GM/DEXTROSE 100 ML BAG IV ONE (08:16)
[2018-06-03] MEDS ORDERED: MAGNESIUM SULF 2 GM/WATER 50 ML BAG IV ONE (08:20)
[2018-06-03] MEDS ORDERED: methylPREDNISolone SOD SUCC 40 MG/ML VIAL IVP SCH (09:00)
[2018-06-03] MEDS ORDERED: THIAMINE HCL 100 MG TAB PO SCH (09:00)
[2018-06-03] MEDS ORDERED: ONDANSETRON DISINTEGRATING 4 MG TAB TUBE PRN (10:30)
[2018-06-03] MEDS ORDERED: ACETAMINOPHEN 325 MG TAB TUBE PRN (10:30)
[2018-06-03] MEDS: AZITHROMYCIN IV 250 MG in NS 250 ML IV SCH (11:03)
[2018-06-03] MEDS: NICOTINE 21 MG/24 HR PATCH TD SCH (11:03)
[2018-06-03] MEDS: ARIPiprazole 5 MG TAB PO SCH (11:29)
[2018-06-03] MEDS: lamoTRIgine 100 MG TAB PO SCH (11:30)
[2018-06-03] MEDS: FAMOTIDINE 20 MG/NACL 50 ML IV SCH ×2 (11:32→20:56)
[2018-06-03] MEDS: CHLORHEXIDINE GLUCONATE 15 ML UDL PO SCH ×2 (11:37→20:56)
[2018-06-03] MEDS: LIDO/ZINC OX/CLOTRIMAZOLE (MAD) 116 GM CREAM TP SCH ×2 (11:37→20:56)
--- NOTE | 2018-06-03 12:04 | ASMTCMCOM ---
CM Note CM Note Notes: Patient needed CTSP urgently due to worsening respiratory failure. Patient on a CIWA with scheduled Ativan and precedex drip due to ETOH withdrawal. Patient lives in an [address] on [facility] His engine cowling installer is Abisai Ramirezne at [phone], ext [phone]. Patient reports a girlfriend but she has not been here to visit. Patient is disabled. OT/DEVELOPMENT ADVISOR still evaluating. D/C plan TBD. CM will follow. Date Signed: 06/03/2018 12:03 PM Electronically Signed By:Gia Webb LCSW
[2018-06-03] MEDS ORDERED: PROTOCOL CALCIUM 1 DOSE IV PRN (12:45)
[2018-06-03] MEDS ORDERED: PROTOCOL POTASSIUM 1 DOSE MISC PRN (12:45)
[2018-06-03] MEDS ORDERED: PROTOCOL K PHOSPHATE 1 DOSE IV PRN (12:45)
--- NOTE | 2018-06-03 12:51 | HOSPPROG ---
Hospitalist Progress Note Assessment/Plan: 52 yo male with hx of restrictive lung disease and tobacco use admitted with acute hypoxic respiratory failure found to have a Parainfluenza pneumonia #Parainfluenza pneumonia -Right sided infiltrates -No leukocytosis present on admission -initially treated with Rocephin and Azithromycin. Rocephin stopped 06/01. cont Azithromycin #tobacco abuse disorder -NRT #RAD with exacerbation. -outpatient PFT's show restrictive pattern -cont scheduled duonebs -was on steroids, looks like it was stopped. Pulm following. #Acute Hypoxic respiratory failure due to above -intubated on Vent: mgmt per pulm #Depression/anxiety/PTSD/SZ disorder: On Abilify, Lamictal, Wellbutrin, and Prozac at home -We are restarting these via tube. Will hold Wellbutrin #Acute ETOH WD -Ativan scheduled -Precedex: off currently. We discussed restarting this today #Hx of Seizures: Thought to be ETOH abuse provoked. He reports lessening the amount of etoh to 6 drinks/week. #Encephalopathy: multifactorial to include withdrawal, metabolic, possible CO2 retention #Hypomagnesemia: replaced today #Hyperkalemia: remove K from fluids. Recheck. Diet: Regular Code: DNR (limited, no compressions) VTE ppx: SCDs, add Lovenox Bowel Protocol Sedation: Propofol (can possibly wean with restarting Precedex) total critical care time in this pt with acute ETOH WD is 35 mins. Subjective: intubated yesterday evening. some agitation. making good urine Objective: Vital Signs Temp Pulse Resp BP Pulse Ox 36.2 C 78 25 H 118/77 93 06/03/18 07:00 06/03/18 10:00 06/03/18 10:00 06/03/18 10:00 06/03/18 10:00 Laboratory Results 06/03/18 05:45 06/03/18 05:45 06/02/18 06/03/18 06/04/18 05:59 05:59 05:59 Intake Total 881 2866 Output Total 1320 1480 Balance -439 1386 PT REJ 06/02/18 05:45 INR REJ 06/02/18 05:45 - Physical Exam Constitutional: no apparent distress Eyes: PERRL Ears, Nose, Mouth, Throat: moist mucous membranes Cardiovascular: regular rate and rhythym, No edema Respiratory: reduced air movement, rhonchi Gastrointestinal: normoactive bowel sounds, soft, non-tender abdomen Skin: warm Neurologic: No AAOx3 Psychiatric: encephalopathic (sedated), agitated Lymph, Heme, Immunologic: No petechiae ICD10 Worksheet Patient Problems: Problems Problem Status Onset Chronic obstructive pulmonary disease with acute exacerbation Acute Pneumonia Acute Acute renal failure Acute Severe sepsis Acute Subarachnoid hemorrhage Acute
[2018-06-03] MEDS ORDERED: SENNOSIDES 17.6 MG/10 ML UDL TUBE PRN (12:59)
[2018-06-03] MEDS ORDERED: BISACODYL 10 MG SUPP PR PRN (12:59)
[2018-06-03] MEDS: FLUoxetine 20 MG CAP TUBE SCH (13:15)
[2018-06-03] MEDS: GABAPENTIN 250 MG/5 ML 30 ML BOTTLE TUBE SCH ×2 (13:15→20:57)
[2018-06-03] MEDS: ENOXAPARIN 40 MG/0.4 ML SYR SC SCH (15:05)
--- NOTE | 2018-06-03 15:12 | PDINTPN ---
Cambering Machine Operator Progress Note Assessment/Plan: 52 M with known history of alcohol admitted 05/31 with sob and infiltrates on CXR in setting of possible COPD. He was treated with antibiotics and oxygen but became increasingly agitated and required a step up in level of care. He eventually became delirious enough to require a precedex drip. * acute respiratory failure with hypoxia and ventilator management. He needed airway protection last PM and has been stable from a pulmonary perspective since. Repeat ABG shows good settings * ETOH wd- CIWA obviated by vent sedation. RN reports episodes of diaphoresis and agitation despite high dose propofol and scheduled ativan. Resume precedex drip to reduce benzo requirement, and OK to titrate propofol if able. * COPD- this is a provisional diagnosis at best as his spirometry was restrictive. Given the propensity for prednisone to effect mental status, steroids dc'd 06/02. * Elevated left diaphragm- idiopathic and chronic. Likely contributes to poor airway clearance. * * critical care time 35 minutes Subjective: intubated last pm for poor airway protection and increasing CO2. Objective: Vital Signs Temp Pulse Resp BP Pulse Ox 36.2 C 83 23 H 115/83 H 96 06/03/18 07:00 06/03/18 11:35 06/03/18 11:35 06/03/18 11:00 06/03/18 11:35 Laboratory Results 06/03/18 05:45 06/03/18 05:45 06/02/18 06/03/18 06/04/18 05:59 05:59 05:59 Intake Total 881 2866 Output Total 1320 1480 Balance -439 1386 PT REJ 06/02/18 05:45 INR REJ 06/02/18 05:45 Physical Exam - Physical Exam General Appearance: obtunded, obese EENT: PERRL/EOMI, ET tube Neck: supple Respiratory: decreased breath sounds, No respiratory distress, No accessory muscle use, No rhonchi, No wheezing Cardiac/Chest: regular rate, rhythm, No edema Abdomen: non-tender, No soft, No distended Skin: normal color, warm/dry, No cyanosis Lymphatic: no adenopathy Extremities: No pedal edema Neuro/Psych: alert, normal mood/affect, oriented x 3 ICD10 Worksheet Patient Problems: Problems Problem Status Onset Chronic obstructive pulmonary disease with acute exacerbation Acute Pneumonia Acute Acute renal failure Acute Severe sepsis Acute Subarachnoid hemorrhage Acute
[2018-06-03] MEDS: DEXMEDETOMIDINE HCL 1,000 MCG in NS 250 ML IV SCH (16:06)
[2018-06-03] MEDS: lamoTRIgine 100 MG TAB TUBE SCH (20:55)
[2018-06-03] MEDS ORDERED: SENNOSIDES/DOCUSATE SODIUM TAB PO SCH (21:00)
[2018-06-03] MEDS ORDERED: hydrALAZINE 20 MG/ML VIAL IVP PRN (23:14)
[2018-06-04] MEDS: LORazepam 2 MG/ML INJ IVP SCH ×4 (00:10→17:00)
[2018-06-04] MEDS: DEXMEDETOMIDINE HCL 1,000 MCG in NS 250 ML IV SCH (01:02)
[2018-06-04] MEDS: NS 1,000 ML IV SCH (01:15)
[2018-06-04] MEDS ORDERED: LORazepam 2 MG/ML INJ IVP ONE (03:53)
[2018-06-04] MEDS: ALBUTEROL 60 PUFFS/8 GM MDI IH SCH ×2 (04:34→08:11)
[2018-06-04] MEDS: PROPOFOL/EMULSION 100 ML IV SCH ×4 (05:16→18:40)
[2018-06-04 05:53] LABS: PLATELET COUNT 201 10^3/uL (150-400)
[2018-06-04] MEDS ORDERED: MAGNESIUM SULF 1 GM/DEXTROSE 100 ML IV ONE (07:33)
[2018-06-04] MEDS: CHLORHEXIDINE GLUCONATE 15 ML UDL PO SCH ×2 (07:39→21:39)
[2018-06-04] MEDS: AZITHROMYCIN IV 250 MG in NS 250 ML IV SCH (07:45)
[2018-06-04] MEDS: ENOXAPARIN 40 MG/0.4 ML SYR SC SCH (07:48)
[2018-06-04] MEDS: GABAPENTIN 250 MG/5 ML 30 ML BOTTLE TUBE SCH ×2 (07:49→21:39)
[2018-06-04] MEDS: THIAMINE HCL 100 MG TAB TUBE SCH (07:52)
[2018-06-04] MEDS: ARIPiprazole 5 MG TAB TUBE SCH (07:53)
[2018-06-04] MEDS: FLUoxetine 20 MG CAP TUBE SCH (07:53)
[2018-06-04] MEDS: lamoTRIgine 100 MG TAB TUBE SCH ×2 (07:53→21:40)
[2018-06-04] MEDS: LIDO/ZINC OX/CLOTRIMAZOLE (MAD) 116 GM CREAM TP SCH ×2 (07:55→21:40)
[2018-06-04] MEDS: NICOTINE 21 MG/24 HR PATCH TD SCH (07:56)
[2018-06-04] MEDS: FAMOTIDINE 20 MG/NACL 50 ML IV SCH ×2 (09:00→21:39)
[2018-06-04] MEDS: POTASSIUM Cl (KCl) 100 ML IV SCH ×2 (10:46→11:42)
--- NOTE | 2018-06-04 10:54 | PDINTPN ---
Education Program Specialist Progress Note Assessment/Plan: 52 M with known history of alcohol admitted 05/31 with sob and infiltrates on CXR in setting of possible COPD. He was treated with antibiotics and oxygen but became increasingly agitated and required a step up in level of care. He eventually became delirious enough to require a precedex drip. * acute respiratory failure with hypoxia and ventilator management. He needed airway protection 06/02 and has been stable from a pulmonary perspective since. Repeat ABG shows good settings and FiO2 at 40%. AM CXR * ETOH wd- CIWA obviated by vent sedation. Precedex with scheduled ativan insufficient for adequate sedation. Now on propofol and ativan. Hold propofol in AM to assess, but suspect he will need several days to complete etoh wd. HD# 3 today. Last ETOH not clear. * COPD- this is a provisional diagnosis at best as his spirometry was restrictive. Given the propensity for prednisone to effect mental status, steroids dc'd 06/02. Continue albuterol PRN. * Elevated left diaphragm- idiopathic and chronic. Likely contributes to poor airway clearance. * * critical care time 35 minutes 06/04/18 10:51 Subjective: did not tolerate precedex Objective: Vital Signs Temp Pulse Resp BP Pulse Ox 36.9 C 73 22 H 95/62 L 93 06/04/18 08:00 06/04/18 10:00 06/04/18 10:00 06/04/18 10:00 06/04/18 10:00 Laboratory Results 06/04/18 05:40 06/04/18 05:40 06/03/18 06/04/18 06/05/18 05:59 05:59 05:59 Intake Total 2866 4157 Output Total 1480 1265 Balance 1386 2892 PT REJ 06/02/18 05:45 INR REJ 06/02/18 05:45 Physical Exam - Physical Exam General Appearance: no apparent distress, obtunded, obese EENT: ET tube Neck: supple Respiratory: lungs clear, normal breath sounds, decreased breath sounds, No respiratory distress, No accessory muscle use, No rhonchi, No wheezing Cardiac/Chest: regular rate, rhythm, No edema, No JVD Abdomen: non-tender, soft, No distended Skin: normal color, warm/dry, No cyanosis Lymphatic: no adenopathy Extremities: No pedal edema Neuro/Psych: cognition abnormalities, No abnormal 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
[2018-06-04] MEDS ORDERED: ALBUTEROL 60 PUFFS/8 GM MDI IH PRN (11:30)
--- NOTE | 2018-06-04 13:59 | HOSPPROG ---
Hospitalist Progress Note Assessment/Plan: 52 yo male with hx of restrictive lung disease and tobacco use admitted with acute hypoxic respiratory failure found to have a Parainfluenza pneumonia #Parainfluenza pneumonia -Right sided infiltrates -No leukocytosis present on admission -initially treated with Rocephin and Azithromycin. Rocephin stopped 06/01. cont Azithromycin #tobacco abuse disorder -NRT #RAD with exacerbation. -outpatient PFT's show restrictive pattern -cont scheduled duonebs -was on steroids, stopped on 06/02 by Pulm #Acute Hypoxic respiratory failure due to above -intubated on Vent since 06/02 p.m.: mgmt per pulm #Depression/anxiety/PTSD/SZ disorder: On Abilify, Lamictal, Wellbutrin, and Prozac at home -We are restarting these via tube. Will hold Wellbutrin #Acute ETOH WD -Ativan scheduled -Did not tolerate Precedex -cont Ativan scheduled -Propofol for sedation #Hx of Seizures: Thought to be ETOH abuse provoked. He reports lessening the amount of etoh to 6 drinks/week. #Encephalopathy: multifactorial to include withdrawal, metabolic, possible CO2 retention #Hypomagnesemia: replaced today per protocol #Hyperkalemia: remove K from fluids. Recheck. Diet: Regular Code: DNR (limited, no compressions) VTE ppx: SCDs, Lovenox FEN: Tube Feeds via NGT, Free water flushes. IVF stopped Bowel Protocol Sedation: Propofol total critical care time in this pt with acute ETOH WD is 30 mins. Subjective: intubated, still with agitation. Failed Precedex last night Objective: Vital Signs Temp Pulse Resp BP Pulse Ox 36.9 C 69 22 H 98/65 L 94 06/04/18 08:00 06/04/18 11:46 06/04/18 11:46 06/04/18 11:46 06/04/18 11:46 Laboratory Results 06/04/18 05:40 06/04/18 05:40 06/03/18 06/04/18 06/05/18 05:59 05:59 05:59 Intake Total 2866 4157 Output Total 1480 1265 Balance 1386 2892 PT REJ 06/02/18 05:45 INR REJ 06/02/18 05:45 - Physical Exam Constitutional: no apparent distress Ears, Nose, Mouth, Throat: moist mucous membranes Cardiovascular: regular rate and rhythym Respiratory: no respiratory distress, no rales or rhonchi, clear to auscultation Gastrointestinal: normoactive bowel sounds, soft, non-tender abdomen Skin: warm Neurologic: No AAOx3 Lymph, Heme, Immunologic: No petechiae ICD10 Worksheet Patient Problems: Problems Problem Status Onset Chronic obstructive pulmonary disease with acute exacerbation Acute Pneumonia Acute Acute renal failure Acute Severe sepsis Acute Subarachnoid hemorrhage Acute
[2018-06-04] MEDS ORDERED: MIDAZOLAM HCL 50 MG in NS 50 ML IV SCH (22:15)
[2018-06-04] MEDS ORDERED: MIDAZOLAM HCL 50 MG in D5W 50 ML IV SCH (22:30)
[2018-06-04] MEDS: MIDAZOLAM HCL 50 MG in D5W 50 ML IV SCH (22:45)
[2018-06-05] MEDS: MIDAZOLAM HCL 50 MG in D5W 50 ML IV SCH ×3 (01:30→08:48)
[2018-06-05] MEDS: PROPOFOL/EMULSION 100 ML IV SCH ×6 (01:32→23:00)
[2018-06-05] MEDS ORDERED: POTASSIUM Cl (KCl) 50 ML IV ONE (02:58)
[2018-06-05] MEDS: LORazepam 2 MG/ML INJ IVP SCH ×4 (05:10→18:57)
[2018-06-05] MEDS: GABAPENTIN 250 MG/5 ML 30 ML BOTTLE TUBE SCH ×2 (08:48→20:52)
[2018-06-05] MEDS: NICOTINE 21 MG/24 HR PATCH TD SCH (08:48)
[2018-06-05] MEDS: CHLORHEXIDINE GLUCONATE 15 ML UDL PO SCH ×2 (08:50→20:52)
[2018-06-05] MEDS: THIAMINE HCL 100 MG TAB TUBE SCH (08:50)
[2018-06-05] MEDS: ENOXAPARIN 40 MG/0.4 ML SYR SC SCH (08:50)
[2018-06-05] MEDS: ARIPiprazole 5 MG TAB TUBE SCH (08:50)
[2018-06-05] MEDS: FAMOTIDINE 20 MG/NACL 50 ML IV SCH ×2 (08:51→20:51)
[2018-06-05] MEDS: FLUoxetine 20 MG CAP TUBE SCH (08:52)
[2018-06-05] MEDS: LIDO/ZINC OX/CLOTRIMAZOLE (MAD) 116 GM CREAM TP SCH ×2 (09:03→20:53)
[2018-06-05] MEDS: lamoTRIgine 100 MG TAB TUBE SCH ×2 (09:03→20:52)
[2018-06-05] MEDS ORDERED: MAGNESIUM SULF 1 GM/DEXTROSE 100 ML IV ONE ×2 (09:22→12:30)
--- NOTE | 2018-06-05 09:58 | ASMTCMCOM ---
CM Note CM Note Notes: Patient remains intubated/sedated as of 06/02. I attempted to call his housing CM Abisai Julio C ([phone]) to provide an update but was unable to get through. We will follow up tomorrow. Current CM Discharge plan: TBD Date Signed: 06/05/2018 09:57 AM Electronically Signed By:Misty Gonzalez RN
[2018-06-05] MEDS ORDERED: MAGNESIUM SULF 2 GM/WATER 50 ML IV ONE (12:14)
--- NOTE | 2018-06-05 12:20 | HOSPPROG ---
Hospitalist Progress Note Assessment/Plan: 52 yo male with hx of restrictive lung disease and tobacco use admitted with acute hypoxic respiratory failure found to have a Parainfluenza pneumonia #Parainfluenza pneumonia -Right sided infiltrates on admission -No leukocytosis present on admission -initially treated with Rocephin. Rocephin stopped 06/01. Has completed treatment course of Azithromycin #tobacco abuse disorder -NRT #RAD with exacerbation. -outpatient PFT's show restrictive pattern -cont scheduled duonebs -was on steroids, stopped on 06/02 by Pulm #Acute Hypoxic respiratory failure due to above -intubated on Vent since 06/02 p.m.: mgmt per pulm #Depression/anxiety/PTSD/SZ disorder: On Abilify, Lamictal, Wellbutrin, and Prozac at home -We have restarted these via tube. Will hold Wellbutrin #Acute ETOH WD -Has been difficult to manage. Attempted Propofol with scheduled Ativan on 06/04 but had lots of agitation and was started on a versed drip during the night. Today we will wean the versed drip and restart Ativan at more frequent doses. Cont Propofol. If agitation continues, restart Precedex drip. #Hx of Seizures: Thought to be ETOH abuse provoked. He reports lessening the amount of etoh to 6 drinks/week. #Encephalopathy: multifactorial to include withdrawal, metabolic #Hypomagnesemia: replaced today per protocol #Hyperkalemia: remove K from fluids. Recheck. Diet: NPO Code: DNR (limited, no compressions) VTE ppx: SCDs, Lovenox FEN: Tube Feeds via NGT, Free water flushes. IVF stopped Bowel Protocol Sedation: Propofol, weaning versed total critical care time in this pt with acute ETOH WD is 33 mins Subjective: agitated last night. appears less agitated currently on Versed drip Objective: Vital Signs Temp Pulse Resp BP Pulse Ox 36.7 C 75 22 H 104/71 93 06/05/18 12:00 06/05/18 12:00 06/05/18 12:00 06/05/18 12:00 06/05/18 12:00 Laboratory Results 06/04/18 05:40 06/05/18 11:30 06/04/18 06/05/18 06/06/18 05:59 05:59 05:59 Intake Total 4157 1637 Output Total 1265 1440 265 Balance 2892 197 -265 PT REJ 06/02/18 05:45 INR REJ 06/02/18 05:45 - Physical Exam Constitutional: no apparent distress Ears, Nose, Mouth, Throat: moist mucous membranes Cardiovascular: regular rate and rhythym Respiratory: no respiratory distress, reduced air movement Gastrointestinal: normoactive bowel sounds, soft, non-tender abdomen Skin: warm Neurologic: No AAOx3 Psychiatric: encephalopathic, agitated Lymph, Heme, Immunologic: No petechiae ICD10 Worksheet Patient Problems: Problems Problem Status Onset Chronic obstructive pulmonary disease with acute exacerbation Acute Pneumonia Acute Acute renal failure Acute Severe sepsis Acute Subarachnoid hemorrhage Acute
--- NOTE | 2018-06-05 12:40 | PDINTPN ---
Tile Sorter Progress Note Assessment/Plan: 52 M with known history of alcohol admitted 05/31 with sob and infiltrates on CXR in setting of possible COPD. He was treated with antibiotics and oxygen but became increasingly agitated and required a step up in level of care. He eventually became delirious enough to require a precedex drip. * acute respiratory failure with hypoxia and ventilator management. He needed airway protection 06/02 and has been stable from a pulmonary perspective since. Repeat ABG shows good settings and FiO2 at 40%. AM CXR show ETT in reasonable position and chronic elevated left diaphragm. * ETOH wd- CIWA obviated by vent sedation. Precedex with scheduled ativan was insufficient for adequate sedation on 06/02. Last PM issues unclear with large variation in reported events. Currently on propofol and versed drip. Plan to titrate versed drip as tolerated in favor of intermittent but scheduled benzo. May resume precedex as needed to keep benzo dose low. HD#5 today. Last ETOH not clear. * COPD- this is a provisional diagnosis at best as his spirometry was restrictive. Given the propensity for prednisone to effect mental status, steroids dc'd 06/02. Continue albuterol PRN. * Elevated left diaphragm- idiopathic and chronic. Likely contributes to poor airway clearance. * * critical care time 40 minutes 06/05/18 12:40 Subjective: increasing agitation overnight and now on versed drip Objective: Vital Signs Temp Pulse Resp BP Pulse Ox 36.7 C 75 22 H 104/71 93 06/05/18 12:00 06/05/18 12:00 06/05/18 12:00 06/05/18 12:00 06/05/18 12:00 Laboratory Results 06/04/18 05:40 06/05/18 11:30 06/04/18 06/05/18 06/06/18 05:59 05:59 05:59 Intake Total 4157 1637 Output Total 1265 1440 265 Balance 2892 197 -265 PT REJ 06/02/18 05:45 INR REJ 06/02/18 05:45 Physical Exam - Physical Exam General Appearance: no apparent distress, obtunded, obese EENT: PERRL/EOMI, No scleral icterus (R), No scleral icterus (L) Neck: supple Respiratory: lungs clear, normal breath sounds, decreased breath sounds, No respiratory distress, No accessory muscle use, No crackles, No wheezing Cardiac/Chest: regular rate, rhythm, No edema, No JVD Abdomen: non-tender, soft, No distended Skin: normal color, warm/dry, No cyanosis Lymphatic: no adenopathy Extremities: No pedal edema Neuro/Psych: cognition abnormalities, 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
[2018-06-05] MEDS: POTASSIUM Cl (KCl) 50 ML IV SCH ×3 (13:04→14:13)
[2018-06-05] MEDS: DEXMEDETOMIDINE HCL 1,000 MCG in NS 250 ML IV SCH ×2 (14:54→15:41)
[2018-06-05] MEDS ORDERED: LORazepam 2 MG/ML INJ IVP PRN (15:59)
[2018-06-06] MEDS: ALTEPLASE 2 MG VIAL IVP PRN (01:18)
[2018-06-06] MEDS: DEXMEDETOMIDINE HCL 1,000 MCG in NS 250 ML IV SCH (03:00)
[2018-06-06] MEDS: PROPOFOL/EMULSION 100 ML IV SCH (03:28)
[2018-06-06] MEDS: LORazepam 2 MG/ML INJ IVP SCH ×3 (03:29→07:04)
[2018-06-06 04:33] LABS: PLATELET COUNT 235 10^3/uL (150-400)
[2018-06-06] MEDS ORDERED: POTASSIUM Cl (KCl) 50 ML IV ONE (06:01)
[2018-06-06] MEDS ORDERED: MAGNESIUM SULF 1 GM/DEXTROSE 100 ML IV ONE (07:59)
--- NOTE | 2018-06-06 08:16 | PDINTPN ---
Lcsw Progress Note Assessment/Plan: Assessment/Plan: 52 M with known history of alcohol admitted 05/31 with sob and infiltrates on CXR in setting of possible COPD. He was treated with antibiotics and oxygen but became increasingly agitated and required a step up in level of care. He eventually became delirious enough to require a precedex drip. * acute respiratory failure with hypoxia and ventilator management. He needed airway protection 06/02 and has been stable from a pulmonary perspective since. Repeat ABG shows good settings and FiO2 at 40%. -will assess for extubation today * ETOH wd- CIWA obviated by vent sedation. Precedex with scheduled ativan was insufficient for adequate sedation on 06/02. Last PM issues unclear with large variation in reported events. Currently on propofol and versed drip. -will wean sedation to assess for extubation * COPD- this is a provisional diagnosis at best as his spirometry was restrictive. Given the propensity for prednisone to effect mental status, steroids dc'd 06/02. Continue albuterol PRN. * Elevated left diaphragm- idiopathic and chronic. Likely contributes to poor airway clearance. * VTE prophylaxis * Stress ulcer prophylaxis * Nutrition-tolerating tube as well * Encephalopathy Subjective: Sedated on mechanical ventilation. Objective: Vital Signs Temp Pulse Resp BP Pulse Ox 36.4 C 65 22 H 107/75 94 06/06/18 04:00 06/06/18 06:00 06/06/18 06:00 06/06/18 06:00 06/06/18 06:00 Microbiology 05/31/18 19:00 Blood Culture - Final Blood Laboratory Results 06/06/18 04:20 06/06/18 04:20 06/05/18 06/06/18 06/07/18 05:59 05:59 05:59 Intake Total 1637 2382.6 Output Total 1440 2090 Balance 197 292.6 PT REJ 06/02/18 05:45 INR REJ 06/02/18 05:45 - Time Spent With Patient Time Spent With Patient: 35 min of critical care time spent with patient Case discussed with Nursing and Respiratory therapy Physical Exam - Physical Exam General Appearance: other (Sedated), No alert EENT: PERRL/EOMI, ET tube Neck: non-tender Respiratory: prolonged expiration (Mild), No respiratory distress, No wheezing Cardiac/Chest: normal peripheral pulses, regular rate, rhythm, systolic murmur Peripheral Pulses: 2+: carotid (R), carotid (L), femoral (R), femoral (L), dorsalis-pedis (R), dorsalis-pedis (L) Abdomen: normal bowel sounds, non-tender, soft Male Genitalia: deferred Rectal: deferred Skin: normal color, warm/dry Extremities: non-tender Neuro/Psych: No alert ICD10 Worksheet Patient Problems: Problems Problem Status Onset Chronic obstructive pulmonary disease with acute exacerbation Acute Pneumonia Acute Acute renal failure Acute Severe sepsis Acute Subarachnoid hemorrhage Acute
[2018-06-06] MEDS ORDERED: LORazepam 1 MG TAB PO SCH (09:00)
[2018-06-06] MEDS: ARIPiprazole 5 MG TAB TUBE SCH (09:39)
[2018-06-06] MEDS: NICOTINE 21 MG/24 HR PATCH TD SCH (09:39)
[2018-06-06] MEDS: ENOXAPARIN 40 MG/0.4 ML SYR SC SCH (09:40)
[2018-06-06] MEDS: FAMOTIDINE 20 MG/NACL 50 ML IV SCH (09:40)
[2018-06-06] MEDS: THIAMINE HCL 100 MG TAB TUBE SCH (09:40)
[2018-06-06] MEDS: FLUoxetine 20 MG CAP TUBE SCH (09:41)
[2018-06-06] MEDS: LIDO/ZINC OX/CLOTRIMAZOLE (MAD) 116 GM CREAM TP SCH ×2 (09:41→21:47)
[2018-06-06] MEDS: lamoTRIgine 100 MG TAB TUBE SCH ×2 (09:41→21:47)
[2018-06-06] MEDS: CHLORHEXIDINE GLUCONATE 15 ML UDL PO SCH (09:41)
[2018-06-06] MEDS: GABAPENTIN 250 MG/5 ML 30 ML BOTTLE TUBE SCH ×2 (11:13→21:47)
[2018-06-06] MEDS: FLUTICASONE/SALMETER 500/50MCG DISKUS IH SCH ×2 (12:23→20:26)
[2018-06-06] MEDS: IPRATROPIUM/ALBUTEROL 3 ML DEYVIAL IH SCH ×3 (12:23→20:27)
[2018-06-06] MEDS: LORazepam 2 MG/ML INJ IVP PRN ×3 (14:02→21:46)
[2018-06-06] MEDS ORDERED: fentaNYL/NACL 100 ML IV SCH (15:00)
[2018-06-06] MEDS ORDERED: PROPOFOL/EMULSION 100 ML IV SCH (15:00)
--- NOTE | 2018-06-06 15:24 | ASMTCMCOM ---
CM Note CM Note Notes: Pt care discussed in rounds and with RN. Pt extubated himself this morning. Pt's immigration case manager from [facility] came to visit pt today and spoke with CM (Sheldon [phone]). Sheldon reports pt is linked at [facility] and [facility]. Sheldon suspects pt drinks about a pint daily of ETOH but reports that it is much less than when pt was younger and homeless. At this time, PT/OT are recommending SNF. CM to follow as pt progresses and initate appropriate referrals as indicated. Pt has medicaid and may be unlikely that pt will agree to 30 day SNF. Pt is able to return to his apartment at [facility] and that may be pts preferance. CM to follow. Plan: TBD Date Signed: 06/06/2018 03:21 PM Electronically Signed By:MICHALE Perry
--- NOTE | 2018-06-06 17:45 | HOSPPROG ---
Hospitalist Progress Note Assessment/Plan: 52yo M with alcohol abuse here with respiratory failure r/t parainfluenza requiring intubation. Course complicated by alcohol withdrawal. #Acute hypoxemic respiratory failure: s/p self-extubation 06/06, now on 4L - ABG shows that he's compensating ok - Wean O2 as able, pulmonary hygiene #Acute etoh withdrawal: Previously difficult to manage, now better - [facility] protocol. Stopping propofol, ativan gtt, precedex #Acute metabolic encephalopathy: D/t withdrawal - Medical mgmt per above #Parainfluenza pneumonia: S/p course of azithromycin. Supportive care. #RAD vs COPD exacerbation: Outpt PFTs actually show restrictive pattern. Continue nebulizers. Steroids stopped. #Depression, PTSD: Continue home abilify, lamictal, prozac. Holding wellbutrin as can lower seizure threshold. #H/o seizures: Likely etoh withdrawal related. Code: limited (no compressions, ok w/intubation) VTE ppx: LMWH GI ppx: H2RA Dispo: Remain in ICU Subjective: Self-extubated morning. He denies complaints but is quite somnolent. Objective: Vital Signs Temp Pulse Resp BP Pulse Ox 37.0 C 113 H 25 H 170/90 H 95 06/06/18 16:00 06/06/18 17:20 06/06/18 17:20 06/06/18 16:00 06/06/18 17:20 Microbiology 05/31/18 19:00 Blood Culture - Final Blood Laboratory Results 06/06/18 04:20 06/06/18 11:50 06/05/18 06/06/18 06/07/18 05:59 05:59 05:59 Intake Total 1637 2382.6 346 Output Total 1440 0 0 Balance 197 292.6 -1734 PT REJ 06/02/18 05:45 INR REJ 06/02/18 05:45 - Physical Exam Constitutional: no apparent distress, obese Eyes: PERRL, anicteric sclera Ears, Nose, Mouth, Throat: moist mucous membranes Cardiovascular: regular rate and rhythym, no murmur, rub, or gallop, No edema Respiratory: respiratory distress, other (tachypneic), No expiratory wheeze, No inspiratory crackles Gastrointestinal: normoactive bowel sounds, soft, non-tender abdomen, no palpable masses Genitourinary: no bladder fullness, no bladder tenderness, no renal bruits, sorto in urethra Skin: no rashes or abrasions, no fluctuance, no induration Neurologic: other (alert but not oriented) Psychiatric: encephalopathic ICD10 Worksheet Patient Problems: Problems Problem Status Onset Chronic obstructive pulmonary disease with acute exacerbation Acute Pneumonia Acute Acute renal failure Acute Severe sepsis Acute Subarachnoid hemorrhage Acute
[2018-06-06] MEDS ORDERED: CHLORHEXIDINE GLUCONATE 15 ML UDL PO SCH (20:00)
[2018-06-06] MEDS ORDERED: FAMOTIDINE 20 MG/NACL 50 ML IV SCH (21:00)
[2018-06-07] MEDS: LORazepam 2 MG/ML INJ IVP PRN ×2 (01:11→20:47)
[2018-06-07] MEDS: IPRATROPIUM/ALBUTEROL 3 ML DEYVIAL IH SCH ×4 (04:35→22:23)
[2018-06-07] MEDS ORDERED: PROTOCOL POTASSIUM 1 DOSE MISC PRN (07:48)
[2018-06-07] MEDS ORDERED: MAGNESIUM SULF 1 GM/DEXTROSE 100 ML IV ONE (08:12)
--- NOTE | 2018-06-07 09:29 | PDINTPN ---
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 He was treated with antibiotics and oxygen but became increasingly agitated and required a step up in level of care. He eventually became delirious enough to require a precedex drip. * acute respiratory failure with hypoxia and ventilator management. He needed airway protection 06/02 and has been stable from a pulmonary perspective since. Markedly improved and stable post self extubation * ETOH wd- mostly resolved. Off Precedex. * COPD- this is a provisional diagnosis at best as his spirometry was restrictive. Given the propensity for prednisone to effect mental status, steroids dc'd 06/02. Continue albuterol PRN. * Elevated left diaphragm- idiopathic and chronic. Likely contributes to poor airway clearance. * VTE prophylaxis * Stress ulcer prophylaxis * Nutrition-tolerating tube as well * Encephalopathy-markedly improved, patient conversant. * Disposition-okay for transfer to floor Subjective: Sitting up in chair. Resting comfortably. Cough is improved. He still feels weak. Objective: Vital Signs Temp Pulse Resp BP Pulse Ox 36.6 C 111 H 26 H 144/84 H 94 06/07/18 07:43 06/07/18 07:43 06/07/18 07:43 06/07/18 07:43 06/07/18 07:43 Microbiology 05/31/18 19:00 Blood Culture - Final Blood Laboratory Results 06/06/18 04:20 06/07/18 05:16 06/06/18 06/07/18 06/08/18 05:59 05:59 05:59 Intake Total 2382.6 1096 Output Total 2090 3180 Balance 292.6 -2084 PT REJ 06/02/18 05:45 INR REJ 06/02/18 05:45 - Time Spent With Patient Time Spent With Patient: 35 min of time spent with patient, over 1/2 involved with coordination of care counseling. Case discussed with nursing Physical Exam - Physical Exam General Appearance: alert, no apparent distress EENT: PERRL/EOMI Neck: non-tender Respiratory: crackles (Few basilar), No respiratory distress, No wheezing Cardiac/Chest: normal peripheral pulses, regular rate, rhythm Peripheral Pulses: 2+: carotid (R), carotid (L), femoral (R), femoral (L), dorsalis-pedis (R), dorsalis-pedis (L) Abdomen: normal bowel sounds, non-tender, soft Male Genitalia: deferred Rectal: deferred Skin: warm/dry Extremities: non-tender Neuro/Psych: alert ICD10 Worksheet Patient Problems: Problems Problem Status Onset Chronic obstructive pulmonary disease with acute exacerbation Acute Pneumonia Acute Acute renal failure Acute Severe sepsis Acute Subarachnoid hemorrhage Acute
[2018-06-07] MEDS: NICOTINE 21 MG/24 HR PATCH TD SCH (10:39)
[2018-06-07] MEDS: ENOXAPARIN 40 MG/0.4 ML SYR SC SCH (10:40)
--- NOTE | 2018-06-07 10:47 | HOSPPROG ---
Hospitalist Progress Note Assessment/Plan: 52yo M with alcohol abuse here with respiratory failure r/t parainfluenza requiring intubation. Course complicated by alcohol withdrawal. #Acute hypoxemic respiratory failure: s/p self-extubation 06/06, now stable on 3- 4L - Wean O2 as able, pulmonary hygiene #Acute etoh withdrawal: Much better. 10mg ativan last 24 hrs - Stopped precedex and scheduled ativan - Continue CIWA protocol but can likely stop soon #Acute metabolic encephalopathy: Resolved. He has decision making capacity. #Parainfluenza pneumonia: S/p course of azithromycin. Supportive care. #RAD vs COPD exacerbation: Outpt PFTs actually show restrictive pattern. Continue nebulizers. Steroids stopped. #Depression, PTSD: Switch home abilify, lamictal, prozac, wellbutrin to PO if passes swallow (had been getting via NGT). #H/o seizures: Likely etoh withdrawal related. 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 Appreciate PT/OT input. Subjective: Up in chair. Asking about when he can leave. No trouble breathing. Personally reviewed cxr - no significant change. Objective: Vital Signs Temp Pulse Resp BP Pulse Ox 36.6 C 111 H 26 H 144/84 H 94 06/07/18 07:43 06/07/18 07:43 06/07/18 07:43 06/07/18 07:43 06/07/18 07:43 Microbiology 05/31/18 19:00 Blood Culture - Final Blood Laboratory Results 06/06/18 04:20 06/07/18 05:16 06/06/18 06/07/18 06/08/18 05:59 05:59 05:59 Intake Total 2382.6 1096 Output Total 2090 3180 200 Balance 292.6 -2084 -200 PT REJ 06/02/18 05:45 INR REJ 06/02/18 05:45 - Physical Exam Constitutional: no apparent distress, unkempt Eyes: PERRL, anicteric sclera Ears, Nose, Mouth, Throat: moist mucous membranes, hearing normal, ears appear normal, no oral mucosal ulcers Cardiovascular: no murmur, rub, or gallop, tachycardia, No edema Respiratory: no respiratory distress, reduced air movement (bases), No expiratory wheeze, No inspiratory crackles Gastrointestinal: normoactive bowel sounds, soft, non-tender abdomen, no palpable masses Genitourinary: no bladder fullness, no bladder tenderness, no renal bruits Skin: no rashes or abrasions, no fluctuance, no induration Musculoskeletal: generalized weakness Neurologic: AAOx3 Psychiatric: interacting appropriately ICD10 Worksheet Patient Problems: Problems Problem Status Onset Chronic obstructive pulmonary disease with acute exacerbation Acute Pneumonia Acute Acute renal failure Acute Severe sepsis Acute Subarachnoid hemorrhage Acute
[2018-06-07] MEDS: FLUTICASONE/SALMETER 500/50MCG DISKUS IH SCH ×2 (11:24→20:50)
[2018-06-07] MEDS ORDERED: ACETAMINOPHEN 325 MG TAB PO PRN (11:30)
[2018-06-07] MEDS ORDERED: ONDANSETRON DISINTEGRATING 4 MG TAB PO PRN (11:30)
[2018-06-07] MEDS: THIAMINE HCL 100 MG TAB PO SCH (11:33)
[2018-06-07] MEDS: FLUoxetine 20 MG CAP PO SCH (11:33)
[2018-06-07] MEDS: ARIPiprazole 5 MG TAB PO SCH (11:34)
[2018-06-07] MEDS: lamoTRIgine 100 MG TAB PO SCH ×2 (11:34→20:37)
[2018-06-07] MEDS: FLUoxetine 20 MG CAP TUBE SCH (11:39)
[2018-06-07] MEDS: ARIPiprazole 5 MG TAB TUBE SCH (11:39)
[2018-06-07] MEDS: THIAMINE HCL 100 MG TAB TUBE SCH (11:40)
[2018-06-07] MEDS: lamoTRIgine 100 MG TAB TUBE SCH (11:40)
[2018-06-07] MEDS: buPROPion XL 150 MG TAB PO SCH (11:42)
[2018-06-07] MEDS: ALLOPURINOL 300 MG TAB PO SCH (11:42)
[2018-06-07] MEDS: GABAPENTIN 250 MG/5 ML 30 ML BOTTLE TUBE SCH (12:15)
[2018-06-07] MEDS: LIDO/ZINC OX/CLOTRIMAZOLE (MAD) 116 GM CREAM TP SCH (17:38)
[2018-06-07] MEDS: SENNOSIDES/DOCUSATE SODIUM TAB PO SCH (20:37)
[2018-06-07] MEDS: traZODone 100 MG TAB PO SCH (20:37)
[2018-06-07] MEDS: PRAZOSIN HCL 1 MG CAP PO SCH (20:37)
[2018-06-07] MEDS: GABAPENTIN 300 MG CAP PO SCH (20:37)
[2018-06-08] MEDS: LIDO/ZINC OX/CLOTRIMAZOLE (MAD) 116 GM CREAM TP SCH ×2 (00:02→12:19)
[2018-06-08] MEDS: IPRATROPIUM/ALBUTEROL 3 ML DEYVIAL IH SCH ×2 (05:24→11:06)
[2018-06-08] MEDS: ALTEPLASE 2 MG VIAL IVP PRN (06:12)
[2018-06-08] MEDS ORDERED: POTASSIUM CL 10 MEQ TAB PO ONE (08:51)
[2018-06-08] MEDS: NICOTINE 21 MG/24 HR PATCH TD SCH (09:31)
[2018-06-08] MEDS: ENOXAPARIN 40 MG/0.4 ML SYR SC SCH (09:32)
[2018-06-08] MEDS: GABAPENTIN 300 MG CAP PO SCH ×2 (09:33→21:58)
[2018-06-08] MEDS: FLUoxetine 20 MG CAP PO SCH (09:33)
[2018-06-08] MEDS: ARIPiprazole 5 MG TAB PO SCH (09:33)
[2018-06-08] MEDS: THIAMINE HCL 100 MG TAB PO SCH (09:33)
[2018-06-08] MEDS: SENNOSIDES/DOCUSATE SODIUM TAB PO SCH ×2 (09:33→21:58)
[2018-06-08] MEDS: ALLOPURINOL 300 MG TAB PO SCH (09:34)
[2018-06-08] MEDS: lamoTRIgine 100 MG TAB PO SCH ×2 (09:34→21:58)
[2018-06-08] MEDS: buPROPion XL 150 MG TAB PO SCH (09:34)
[2018-06-08] MEDS ORDERED: MAGNESIUM SULF 1 GM/DEXTROSE 100 ML IV ONE (10:43)
[2018-06-08] MEDS: FLUTICASONE/SALMETER 500/50MCG DISKUS IH SCH ×2 (11:08→21:16)
--- NOTE | 2018-06-08 11:57 | HOSPPROG ---
Hospitalist Progress Note Assessment/Plan: 52yo M with alcohol abuse here with respiratory failure r/t parainfluenza requiring intubation. Course complicated by alcohol withdrawal. #Acute hypoxemic respiratory failure: s/p self-extubation 06/06, now stable on 3- 4L - Wean O2 as able, pulmonary hygiene #Acute etoh withdrawal: resolved - Stop CIWA protocol #Acute metabolic encephalopathy: Resolved. #Parainfluenza pneumonia: S/p course of azithromycin. Supportive care. #RAD vs COPD exacerbation: Resolving. Switch duonebs to PRN. Steroids stopped. #Depression, PTSD: Compensated. Continue home abilify, lamictal, prozac, wellbutrin, prazosin. #H/o seizures: Likely etoh withdrawal related. Code: limited (no compressions, ok w/intubation) VTE ppx: LMWH Diet: regular Dispo: Remain inpatient, hopefully dc tomorrow. PT/OT working with patient - likely home vs home care. Subjective: Feeling much better today. Still with some cough. Personally reviewed cxr, mostly unchanged. Objective: Vital Signs Temp Pulse Resp BP Pulse Ox 36.6 C 103 H 12 99/67 L 92 06/08/18 07:31 06/08/18 11:11 06/08/18 11:11 06/08/18 07:31 06/08/18 11:11 Laboratory Results 06/06/18 04:20 06/08/18 07:08 06/07/18 06/08/18 06/09/18 05:59 05:59 05:59 Intake Total 1096 250 Output Total 3180 500 Balance -2084 -250 PT REJ 06/02/18 05:45 INR REJ 06/02/18 05:45 - Physical Exam Constitutional: no apparent distress, appears nourished, not in pain Eyes: PERRL, anicteric sclera, EOMI Ears, Nose, Mouth, Throat: moist mucous membranes, hearing normal, ears appear normal, no oral mucosal ulcers Cardiovascular: regular rate and rhythym, no murmur, rub, or gallop, No edema Respiratory: no respiratory distress, reduced air movement (throughout), rhonchi , No expiratory wheeze, No inspiratory crackles Gastrointestinal: normoactive bowel sounds, soft, non-tender abdomen, no palpable masses Genitourinary: no bladder fullness, no bladder tenderness, no renal bruits Skin: no rashes or abrasions, no fluctuance, no induration Musculoskeletal: full muscle strength, no muscle tenderness, normal joint ROM Neurologic: AAOx3, sensation intact bilaterally Psychiatric: interacting appropriately, not anxious, not encephalopathic, thought process linear ICD10 Worksheet Patient Problems: Problems Problem Status Onset Chronic obstructive pulmonary disease with acute exacerbation Acute Pneumonia Acute Acute renal failure Acute Severe sepsis Acute Subarachnoid hemorrhage Acute
[2018-06-08] MEDS ORDERED: IPRATROPIUM/ALBUTEROL 3 ML DEYVIAL IH PRN (11:59)
--- NOTE | 2018-06-08 16:01 | ASMTCMCOM ---
CM Note CM Note Notes: Spoke with MD and PT, pt will not go to SNF, has [facility] apt. Pt wants to go home, homecare not appropriate b/c he will not be homebound. Therapies preparing pt to be able to return home to apt. CM will notifiy his CM at [facility] upon dc. DC Plan: Independent Date Signed: 06/08/2018 04:00 PM Electronically Signed By:Mar Carvalho RN
[2018-06-08] MEDS: traZODone 100 MG TAB PO SCH (21:58)
[2018-06-08] MEDS: PRAZOSIN HCL 1 MG CAP PO SCH (21:58)
[2018-06-09] MEDS: LIDO/ZINC OX/CLOTRIMAZOLE (MAD) 116 GM CREAM TP SCH ×2 (00:09→16:10)
[2018-06-09] MEDS ORDERED: MAGNESIUM SULF 1 GM/DEXTROSE 100 ML IV ONE (07:54)
[2018-06-09] MEDS: ALLOPURINOL 300 MG TAB PO SCH (10:42)
[2018-06-09] MEDS: GABAPENTIN 300 MG CAP PO SCH (10:42)
[2018-06-09] MEDS: lamoTRIgine 100 MG TAB PO SCH (10:42)
[2018-06-09] MEDS: FLUoxetine 20 MG CAP PO SCH (10:42)
[2018-06-09] MEDS: SENNOSIDES/DOCUSATE SODIUM TAB PO SCH (10:42)
[2018-06-09] MEDS: ARIPiprazole 5 MG TAB PO SCH (10:43)
[2018-06-09] MEDS: buPROPion XL 150 MG TAB PO SCH (10:43)
[2018-06-09] MEDS: NICOTINE 21 MG/24 HR PATCH TD SCH (10:43)
[2018-06-09] MEDS: THIAMINE HCL 100 MG TAB PO SCH (10:43)
[2018-06-09] MEDS: ENOXAPARIN 40 MG/0.4 ML SYR SC SCH (10:45)
[2018-06-09] MEDS: FLUTICASONE/SALMETER 500/50MCG DISKUS IH SCH (10:47)
--- NOTE | 2018-06-09 13:37 | PDDCSUM ---
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 Acute hypoxemic respiratory failure 2. Parainfluenza pneumonia 3. Acute alcohol withdrawal, severe 4. Acute metabolic encephalopathy, resolved 5. RAD vs COPD exacerbation, resolved 6. Depression, PTSD 7. H/o seizures (likely etoh withdrawal related) 8. Tobacco use Brief Hospital Course: 52yo M with alcohol abuse presented with 1 week of worsening shortness of breath. He was found to be hypoxemic. Respiratory viral panel was + for parainfluenza. His respiratory and mental status continued to decline and he was subsequently intubated. He was treated with a course of azithromycin, bronchodilators, and short course of steroids. He improved and was able to be extubated and weaned to 2L of supplemental oxygen at discharge. His hospital course was complicated by rather severe etoh withdrawal. He briefly required significant sedation in the form of scheduled ativan, precedex gtt, and propofol. He had completed withdrawing at time of discharge. He was strongly advised to quit smoking and drinking. Of note, recent outpatient PFTs show a restrictive pattern. Medications: Please refer to EMR for complete list. No changes were made this admission. Follow Up Plan: 1. 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 Alert and oriented, rrr, lungs improving without wheezes, abdomen soft and nt, no leg edema, no jvd, no rashes.
--- NOTE | 2018-06-09 14:24 | PDHOMEO2F ---
Home Oxygen Face to Face Home Orders: I certify that a physician or a nurse practitioner or physician's kindergarten assistant has had a [id number] encounter with this patient on the date of this order due to the diagnosis listed, which relates to the primary reason the patient requires home oxygen. Alternative treatments have been tried, or considered, and deemed ineffective. It is anticipated that supplemental oxygen will result in improvement with treatment. Home oxygen qualifying diagnosis: respiratory failure with hypoxia SpO2 on room air (%): 74 Frequency of home oxygen needed: continuous Home oxygen liters per minute: 2 Home oxygen delivery device: nasal cannula Concentrator: Yes E-tanks for mobility and back up: Yes If ordering portable O2, is the patient mobile in the home?: Yes I certify that, based on these findings, the home oxygen is medically necessary for this patient for the following length of time. Length of time home oxygen needed: 99 years
[2018-06-09 16:45] VITALS: BP 127/86
== END 2018-06-09 18:11 | disposition home or self-care (01) | DRG 140 ==
LOC: EDUNIT# → F2N 21:12 → F3E 06-07 11:53
PROVIDERS: ADMIT Internal Medicine; ATTEND Internal Medicine
PROC: 5A1945Z Respiratory Ventilation, 24-96 Consecutive Hours (ICD-10-PCS; principal; 2018-06-02)
PROC: 0BH18EZ Insertion of Endotracheal Airway into Trachea, Via Natural or Artificial Opening Endoscopic (ICD-10-PCS; principal; 2018-06-02)
PROC: 02H633Z Insertion of Infusion Device into Right Atrium, Percutaneous Approach (ICD-10-PCS; 2018-06-02)
DX: J44.0 Chronic obstructive pulmonary disease with (acute) lower respiratory infection (principal); J12.2 Parainfluenza virus pneumonia; J44.1 Chronic obstructive pulmonary disease with (acute) exacerbation; J96.01 Acute respiratory failure with hypoxia; J45.901 Unspecified asthma with (acute) exacerbation; G93.41 Metabolic encephalopathy; F10.231 Alcohol dependence with withdrawal delirium; F32.9 Major depressive disorder, single episode, unspecified; F41.9 Anxiety disorder, unspecified; F43.10 Post-traumatic stress disorder, unspecified; G40.909 Epilepsy, unspecified, not intractable, without status epilepticus; I10 Essential (primary) hypertension; G62.9 Polyneuropathy, unspecified; E83.42 Hypomagnesemia; E87.5 Hyperkalemia; E78.5 Hyperlipidemia, unspecified; Z72.0 Tobacco use; Z66 Do not resuscitate
CPT/HCPCS: 84484-ER; 92526-GN; 92610-GN; 96365; 97116-GP; 97162-GP; 97166-GO; 97530-GO; 97530-GP; 97535-GO; C1751; G0515-GO; J0456; J0696; J1650; J2060; J2250; J2704; J2997; J3411; J3475; J3480; J7512; J7613